=== PATIENT | female | born 1950 | race Caucasian/White ===

== ENCOUNTER 2020-08-29 07:20 | Emergency (ER) | payer MEDICARE, MEDICAID, SELFPAY ==
[2020-08-29 07:27] VITALS: BP 142/79; PULSE 80; RESP 16; TEMP 36.6; O2SAT 98; BMI 39.0
--- NOTE | 2020-08-29 08:34 | XR_ITS ---
EXAMINATION: XR CHEST CLINICAL INFORMATION: SOB. COMPARISON: Chest 08/07/2012 TECHNIQUE: Frontal view of the chest was obtained. FINDINGS: The lungs are well-expanded and clear of acute process. The heart size and pulmonary vascularity is normal. No gross bony abnormality seen. XR/XR chest 1V IMPRESSION: Unremarkable chest exam.
--- NOTE | 2020-08-29 08:34 | ECG_ITS ---
Test Reason : DYSPNEA Blood Pressure : / mmHG Vent. Rate : 081 BPM Atrial Rate : 081 BPM P-R Int : 152 ms QRS Dur : 080 ms QT Int : 418 ms P-R-T Axes : 059 -27 016 degrees QTc Int : 485 ms Sinus rhythm with occasional Premature ventricular complexes Nonspecific ST abnormality Abnormal ECG When compared with ECG of 28-OCT-2017 00:40, Premature ventricular complexes are now Present Nonspecific T wave abnormality no longer evident in Inferior leads T wave inversion no longer evident in Anterolateral leads Referred By: Jacquelin Ly Electronically Signed By:CAROLYN DIA MD
--- NOTE | 2020-08-29 09:11 | ED_ITS ---
HPI - SOB/Dyspnea General Chief Complaint: Dyspnea Stated Complaint: sob +covid Time Seen by Provider: 08/29/20 08:17 Source: patient Mode of arrival: ambulatory History of Present Illness HPI Narrative: 70-year-old female with past medical history of hypertension presenting to the ED complaining of worsening SOB and right-sided lung pain x a few days. Also reports dry cough and diarrhea. Admits tested positive for COVID-19 on 08/15. 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 Denies fever, chills, productive cough, chest pain, recent travel, LE edema MD elicited complaint: shortness of breath Related Data Previous Rx's Medication Instructions Recorded azithromycin See Rx Instructions .ROUTE 08/29/20 .COMPLEX #6 tab prednisone 40 mg PO DAILY 5 Days #10 tab 08/29/20 Allergies Allergy/AdvReac Type Severity Reaction Status Date / Time No Known Allergies Allergy Unverified 05/21/20 15:09 Review of Systems Review of Systems: Constitutional: No Weight loss, No Fever, No Chills, No Night Sweats, + Fatigue, + Malaise ENT/Mouth: No Ear Pain, No Nasal Congestion, No sore throat, No Rhinorrhea Cardiovascular: No Chest Pain, + SOB, No Dyspnea on Exertion, No Orthopnea, No Edema Respiratory: No Cough, No Sputum, No Wheezing, No Smoke Exposure, No Dyspnea Gastrointestinal: No Nausea, No Vomiting, + Diarrhea Musculoskeletal: No joint pain, No Myalgias, No Joint Swelling Skin: No Skin Lesions, No rash Yes all other systems are reviewed and are negative PMFSH Past Medical History Attestation statement: The following information was validated with the patient. Medical History (Updated 08/29/20 @ 16:07 by RACHEAL Hollins) HTN (hypertension) Social History Social History Alcohol intake: current Alcohol intake frequency: 0-2 drinks per day Alcohol type: wine Smoked in Last 30 Days: No Use of substances other than those prescribed or required for medical reasons: No Advance Directives: No Advance Directives Information Provided: No Physical Exam Vital Signs: Vital Signs: Last Vital Signs Temp 98.8 F 08/29/20 14:36 Pulse 81 08/29/20 14:36 Resp 30 H 08/29/20 14:36 BP 153/75 H 08/29/20 14:36 Pulse Ox 94 08/29/20 14:36 Body Mass Index 39.0 Const: General: cooperative and healthy appearing Orientation/consciousness: patient oriented x3 Limitations: no limitations HENMT: Head: Yes normal to inspection Ears: hearing grossly normal bilaterally General nose exam: Normal external nose present Face and sinus: Yes normal facial exam Eyes: General: appearance normal, both eyes and all related structures EOM: EOMs intact bilaterally Neck: Neck: Yes normal visual inspection Chest: Chest palpation & inspection: normal inspection of the chest Resp: Effort & Inspection: normal respiratory effort, no stridor and not tachypneic Auscultation: no wheezes and diminished lung sounds on the right in the lower lung [place] Cardio: Rate: regular rate Heart sounds: S1 normal heart sound present and S2 normal heart sound present GI: Inspection: Yes normal to inspection Palpation (GI): Soft to palpation, nontender, no guarding and not rigid Skin: Rashes: no rashes Wounds: no wounds Neuro: General: patient oriented x3 Gait exam (Neuro): Normal gait present Extrem: Other: No LE edema or calf tenderness General: Yes normal to inspection Course Course Course Narrative: * Magnesium low 1.1 > 2 g IV repletion ordered, AST/ALT mildly elevated, troponin 11.6 > will obtain 3 hour repeat * Repeat troponin equivocal * CXR unremarkable, on re-evaluation patient reports continued right sided rib pain. D-dimer added * [id number] elevated at 630 > will obtain CTA to r/o PE * 1606-of PE. Subpleural nodule right lower base, stable. Small area fine reticular opacity subpleural lung right upper lobe which may be acute or chronic > will discharge patient home with Azithromycin, prednisone, and inhaler * Patient ambulated in the ED with pulse ox maintaining saturations at 94 -95% on RA MDM - SOB/Dyspnea MDM Narrative Medical decision making narrative: 70-year-old female with past medical history of hypertension presenting to the ED complaining of worsening SOB and right- sided lung pain x a few days. On exam VSS, NAD/well-appearing, lungs with decreased breath sounds in right lower lung. Patient is nontoxic appearing. Concern for COVID-19 pneumonia vs COVID-19 symptoms fair lower concern for PE. Low concern for bacterial infection. Plan: EKG, labs, CXR, albuterol, reassess Lab Data Result diagrams: 08/29/20 09:34 08/29/20 09:34 Labs: Lab Results 08/29/20 08/29/20 08/29/20 Range/Units 09:34 09:34 09:34 WBC 7.0 (4.8-10.8) X10*3/uL RBC 4.88 (4.20-5.50) X10*6/uL Hgb 13.7 (12.0-16.0) g/dl Hct 40.8 (37-47) % MCV 83.6 (80-98) fL MCH 28.1 (27.0-33.0) pg MCHC 33.6 (31.0-35.0) g/dl RDW 13.0 (11.0-16.0) % Plt Count 247 (160-400) X10*3/uL MPV 9.1 L (9.4-12.3) fL Immature Gran % (Auto) 1.9 H (0.0-0.4) % Neut % (Auto) 38.1 L (45-73) % Lymph % (Auto) 53.8 H (20-40) % Island % (Auto) 5.3 (2-11) % Eos % (Auto) 0.3 (0-4) % Baso % (Auto) 0.6 (0-2) % Lymph # (Auto) 3.8 (1.2-4.9) X10*3/uL Island # (Auto) 0.4 (0.1-1.2) X10*3/uL Eos # (Auto) 0.0 (0.0-0.4) X10*3/uL Baso # (Auto) 0.0 (0.0-0.2) X10*3/uL Abs Immat Gran (auto) 0.13 H (0.00-0.03) X10*3/uL Absolute Neuts (auto) 2.7 (2.0-8.3) X10*3/uL Absolute Nucleated RBC 0.000 (0.0-0.012) X10*3/uL Nucleated RBC % (auto) 0.0 (0.0-0.2) /100WBC D-Dimer 630 NG/ML Hold Blue Top SEE NOTE Sodium 145 (135-145) mmol/L Potassium 3.4 (3.3-5.1) mmol/l Chloride 103 (96-108) mmol/L Carbon Dioxide 28 (22-29) mmol/L Anion Gap 17 (12-20) BUN 11 (9-16) mg/dL Creatinine 0.73 (0.5-1.4) mg/dL Estim Creat Clear Calc 74.0 Estimated GFR > 60 Random Glucose 139 H (60-115) mg/dL Calcium 8.4 (8.4-10.2) mg/dL Magnesium 1.1 L* (1.6-2.6) mg/dL Ferritin 73 (10-250) ng/mL Total Bilirubin 0.3 (0.0-1.0) mg/dL Direct Bilirubin 0.2 (0.0-0.5) mg/dL AST 85 H (5-31) U/L ALT 79 H (0-31) U/L Alkaline Phosphatase 89 (39-117) U/L Lactate Dehydrogenase 324 H (122-220) U/L Troponin I High Sens (<3.5-17.0) ng/L C-Reactive Protein 0.31 (< or = 0.50) mg/dL B-Natriuretic Peptide (<100) pg/mL Total Protein 7.3 (6.5-8.0) g/dL Albumin 3.9 (3.5-5.0) g/dL Procalcitonin ng/mL 08/29/20 08/29/20 08/29/20 Range/Units 09:34 09:34 11:41 WBC (4.8-10.8) X10*3/uL RBC (4.20-5.50) X10*6/uL Hgb (12.0-16.0) g/dl Hct (37-47) % MCV (80-98) fL MCH (27.0-33.0) pg MCHC (31.0-35.0) g/dl RDW (11.0-16.0) % Plt Count (160-400) X10*3/uL MPV (9.4-12.3) fL Immature Gran % (Auto) (0.0-0.4) % Neut % (Auto) (45-73) % Lymph % (Auto) (20-40) % Island % (Auto) (2-11) % Eos % (Auto) (0-4) % Baso % (Auto) (0-2) % Lymph # (Auto) (1.2-4.9) X10*3/uL Island # (Auto) (0.1-1.2) X10*3/uL Eos # (Auto) (0.0-0.4) X10*3/uL Baso # (Auto) (0.0-0.2) X10*3/uL Abs Immat Gran (auto) (0.00-0.03) X10*3/uL Absolute Neuts (auto) (2.0-8.3) X10*3/uL Absolute Nucleated RBC (0.0-0.012) X10*3/uL Nucleated RBC % (auto) (0.0-0.2) /100WBC D-Dimer NG/ML Hold Blue Top Sodium (135-145) mmol/L Potassium (3.3-5.1) mmol/l Chloride (96-108) mmol/L Carbon Dioxide (22-29) mmol/L Anion Gap (12-20) BUN (9-16) mg/dL Creatinine (0.5-1.4) mg/dL Estim Creat Clear Calc Estimated GFR Random Glucose (60-115) mg/dL Calcium (8.4-10.2) mg/dL Magnesium (1.6-2.6) mg/dL Ferritin (10-250) ng/mL Total Bilirubin (0.0-1.0) mg/dL Direct Bilirubin (0.0-0.5) mg/dL AST (5-31) U/L ALT (0-31) U/L Alkaline Phosphatase (39-117) U/L Lactate Dehydrogenase (122-220) U/L Troponin I High Sens 11.6 11.5 (<3.5-17.0) ng/L C-Reactive Protein (< or = 0.50) mg/dL B-Natriuretic Peptide 56 (<100) pg/mL Total Protein (6.5-8.0) g/dL Albumin (3.5-5.0) g/dL Procalcitonin 0.04 ng/mL Discharge Plan Discharge Clinical Impression: COVID-19 Patient Disposition: Home, Self-Care Additional Instructions: YOUR BLOOD WORK SHOWED A LOW MAGNESIUM, START TAKING MAGNESIUM [id number] YOU HAVE COVID-19, YOU ALSO MAY HAVE COVID-19 PNEUMONIA, ZITHROMAX IS AN ANTIBIOTIC, TAKE PRESCRIBED PREDNISONE IS A STEROID, WHICH WILL HELP WITH YOUR BREATHING, IN ADDITION TAKE DIRECTED USE INHALER THAT WAS SUPPLIED TO YOU IN THE EMERGENCY DEPARTMENT CONTINUE TO SELF ISOLATE IF HE DEVELOP CONSTANT WORSENING SHORTNESS OF BREATH, CHEST PAIN, OR FEVERS UNRESOLVED BY MEDICATIONS/TYLENOL OR MOTRIN AT HOME RETURN TO THE ED FEELING CALL YOUR PRIMARY CARE DOCTOR FOR FOLLOW-UP CDC Guidelines for home isolation: - Stay away from others - WEAR A MASK if you are sick AND STAY HOME - Cover your mouth and nose with a tissue when you cough or sneeze. Dispose of tissues in a lined trash can and wash your hands immediately with soap and water for at least 20 seconds. If soap and water are not available, clean hands with alcohol-based hand osteopathic resident that contains at least 60% alcohol. - Clean your hands often with soap and water for at least 20 seconds - Avoid touching your eyes, nose and mouth with unwashed hands - Do not share dishes, drinking glasses, cups, eating utensils, towels, or bedding with other people in your home. After using these items, wash them thoroughly with soap and water or put in the project landscape architect. - Clean high-touch surfaces in your isolation area ( sick room and bathroom) every day; let a caregiver clean and disinfect high-touch surfaces in other areas of the home. Clean the area or item with soap and water or another detergent if it is dirty. Then, use a household disinfectant. - Limit contact with pets and animals: If you must care for a pet, wash your hands before and after interacting with them) Prescriptions: New azithromycin 250 mg tablet See Rx Instructions .ROUTE .COMPLEX Qty: 6 RF: 0 prednisone 20 mg tablet 40 mg PO DAILY 5 Days Qty: 10 RF: 0 Referrals: ED Physician,Generic [Emergency Provider] - 2 days
[2020-08-29] MEDS: Albuterol Sulfate 90 MCG 8 GM INHALER 4 PUFF INHALE (09:12)
[2020-08-29 09:39] LABS: Basophils Percent Auto 0.6 % (0-2); Eosinophils Percent Auto 0.3 % (0-4); Hematocrit 40.8 % (37-47); Hemoglobin 13.7 g/dl (12.0-16.0); Imm Gran Abs Auto 0.13 X10*3/uL (0.00-0.03); Imm Gran Pct Auto 1.9 % (0.0-0.4); Lymphocytes Absolute Auto 3.8 X10*3/uL (1.2-4.9); Lymphocytes Percent Auto 53.8 % (20-40); MANUAL DIFF FLAG NO; Mean Corpuscular HGB Conc 33.6 g/dl (31.0-35.0); Mean Corpuscular Hemoglobin 28.1 pg (27.0-33.0); Mean Corpuscular Volume 83.6 fL (80-98); Mean Platelet Volume 9.1 fL (9.4-12.3); Monocytes Absolute Auto 0.4 X10*3/uL (0.1-1.2); Monocytes Percent Auto 5.3 % (2-11); Neutrophils Absolute Auto 2.7 X10*3/uL (2.0-8.3); Neutrophils Percent Auto 38.1 % (45-73); Platelet Count 247 X10*3/uL (160-400); Red Blood Count 4.88 X10*6/uL (4.20-5.50)
[2020-08-29 10:18] LABS: B Type Natriuretic Peptide 56 pg/mL (<100); Troponin-I High Sensitivity 11.6 ng/L (<3.5-17.0)
[2020-08-29 10:21] LABS: Alanine Aminotransferase 79 U/L (0-31); Albumin Level 3.9 g/dL (3.5-5.0); Alkaline Phosphatase 89 U/L (39-117); Anion Gap 17 (12-20); Aspartate Amino Transferase 85 U/L (5-31); Bilirubin Direct 0.2 mg/dL (0.0-0.5); Bilirubin Total 0.3 mg/dL (0.0-1.0); Blood Urea Nitrogen 11 mg/dL (9-16); C Reactive Protein 0.31 mg/dL (< or = 0.50); Calcium 8.4 mg/dL (8.4-10.2); Carbon Dioxide 28 mmol/L (22-29); Chloride 103 mmol/L (96-108); Estimated Glomerular Filt Rate > 60; Glucose Random 139 mg/dL (60-115); Lactate Dehydrogenase 324 U/L (122-220); Magnesium 1.1 mg/dL (1.6-2.6); Potassium 3.4 mmol/l (3.3-5.1); Sodium 145 mmol/L (135-145); Total Protein 7.3 g/dL (6.5-8.0)
[2020-08-29 10:27] LABS: Procalcitonin 0.04 ng/mL
[2020-08-29 10:32] LABS: Ferritin 73 ng/mL (10-250)
[2020-08-29] MEDS: Magnesium Sulfate/H2O 2 GM/50 ML PIGGYBACK IV (10:56)
[2020-08-29 11:43] VITALS: BP 134/71; PULSE 81; RESP 26; TEMP 37.1; O2SAT 94
[2020-08-29 12:21] LABS: Troponin-I High Sensitivity 11.5 ng/L (<3.5-17.0)
[2020-08-29] MEDS: Acetaminophen 325 MG TABLET 650 MG PO (12:33)
[2020-08-29] MEDS: LORazepam 1 MG TABLET PO (12:33)
[2020-08-29 12:41] VITALS: O2SAT 95
[2020-08-29 13:18] LABS: D Dimer 630 NG/ML
--- NOTE | 2020-08-29 14:20 | CT_ITS ---
EXAMINATION: CT ANGIOGRAM OF THE CHEST WITH AND WITHOUT CONTRAST (CT PULMONARY ANGIOGRAM FOR PE) CLINICAL INFORMATION: Reason for Exam COVID positive, elevated D-dimer COMPARISON: CT abdomen pelvis 03/12/2014. Chest x-ray 08/29/2020 TECHNIQUE: Prior to contrast administration, noncontrast localization images were obtained. Subsequently, multidetector volumetric imaging was performed from the thoracic inlet to below the diaphragms following the administration of 80 mL Omnipaque 350 intravenous contrast. No contrast reaction reported Sagittal, coronal, and MIP oblique sagittal reformatted images were obtained on the CT workstation, uploaded to PACS, and reviewed. This CT examination was performed using dose optimization techniques as appropriate, variously including the following: *Automated exposure control *Adjustment of mA and/or kV according to patient size (this includes techniques or standardized protocols for targeted exams where dose is matched to indication/reason for exam; i.e. extremities or head) *Use of iterative reconstruction technique Total exam dose-length product 602 mGy-cm FINDINGS: QUALITY OF STUDY/CONTRAST BOLUS: Satisfactory. PULMONARY ARTERIES: No central or segmental pulmonary emboli. THORACIC AORTA: No aneurysm or dissection. LUNG: Adjacent to the major fissure in the right upper lobe posteriorly there is an area of swelling reticular opacities in the subpleural lung of the right upper lobe which may be acute or chronic. Axial image 158 series 8. There is no focal dense consolidation. No groundglass opacities. Central bronchial airways are open. There is no bronchiectasis. Lung nodule: Subpleural lung posterior lateral right lower lobe 5 mm smooth bordered nodule axial image 250 series 8. This lung nodules unchanged since CAT scan of the abdomen pelvis 03/12/2014 consistent with a benign nodule. No further imaging would be needed. PLEURA: No pleural effusion or pneumothorax. MEDIASTINUM: Normal heart size. No pericardial effusion. No hilar or mediastinal lymphadenopathy. No evidence of septal bowing or right heart strain. CHEST WALL/AXILLA: No axillary or internal mammary lymphadenopathy. OSSEOUS STRUCTURES: No acute or suspicious osseous abnormality. There is multilevel degenerative spondylosis of the dorsal spine. UPPER ABDOMEN: Unremarkable. No reflux of contrast into the hepatic veins to suggest elevated right heart pressures. CT/CT angio chest PE protocol IMPRESSION: 1. No evidence of pulmonary embolism. 2. 5 mm subpleural nodule right lower lobe. This nodule is stable since CAT scan of 2013 consistent therefore with a benign nodule. No further imaging would be suggested. 3. Small area of fine reticular opacity subpleural lung right upper lobe which may be acute or chronic. VTE: negative
[2020-08-29 14:36] VITALS: BP 153/75; PULSE 81; RESP 30; TEMP 37.1; O2SAT 94
[2020-08-29] MEDS: iohexoL 350 MG/ML 100 ML INFUS..BTL 65 ML IV (15:26)
== END 2020-08-29 16:41 | disposition home or self-care (01) ==
PROVIDERS: Physician Assistant; Emergency Provider Emergency Medicine Emergency Medical Services
DX: U07.1 COVID-19 (principal); E83.42 Hypomagnesemia; I10 Essential (primary) hypertension
CPT/HCPCS: 36415; 71045; 71275; 80048; 80076; 82728; 83615; 83735; 83880; 84145; 84484; 85025; 85379; 86140; 93005; 96365; 96366; 99284; J3475; Q9967

== ENCOUNTER → 2021-07-20 15:21 | Outpatient (BNVA) | payer OTHER, SELFPAY | PROVIDERS: Visit Provider Internal Medicine | DX: S93.401A Sprain of unspecified ligament of right ankle, initial encounter (principal); X50.1XXA Overexertion from prolonged static or awkward postures, initial encounter | CPT/HCPCS: 73610; 99203 ==

== ENCOUNTER → 2021-07-23 13:09 | Outpatient (BNVA) | payer OTHER, SELFPAY | PROVIDERS: Visit Provider Internal Medicine | DX: S93.401A Sprain of unspecified ligament of right ankle, initial encounter (principal); X58.XXXA Exposure to other specified factors, initial encounter | CPT/HCPCS: 99214 ==

== ENCOUNTER → 2021-08-06 09:17 | Outpatient (BNVA) | payer OTHER, SELFPAY | PROVIDERS: PCP Family Medicine; Visit Provider Internal Medicine | DX: S93.401D Sprain of unspecified ligament of right ankle, subsequent encounter (principal); X58.XXXD Exposure to other specified factors, subsequent encounter | CPT/HCPCS: 99213 ==

== ENCOUNTER 2021-08-12 18:13 | Outpatient (REF) | payer OTHER, SELFPAY ==
--- NOTE | ~2021-08-12 | MR_ITS ---
EXAMINATION: MR ANKLE WITHOUT CONTRAST, RIGHT CLINICAL INFORMATION: Right ankle pain following injury. Anterior, medial, and lateral pain. COMPARISON: Right ankle radiographs dated 07/20/2021. TECHNIQUE: Multisequence MR imaging of the right ankle was obtained without contrast on a high-field strength scanner. FINDINGS: BONE AND ARTICULAR CARTILAGE: No stress reaction or fracture. Focal articular cartilage fissuring with mild underlying subchondral cystic change and adjacent marginal osteophytes at both the anterior and posterior aspects of the tibial plafond. Overall mild tibiotalar osteoarthritis. No talar osteochondral lesion. Articular cartilage fissuring with underlying subchondral cystic change at the dorsal aspect of the 4th tarsometatarsal joint. ACHILLES TENDON: Normal. OTHER TENDONS: Flattening and abnormal signal of the peroneal brevis tendon at the level of the lateral malleolus. Associated thickening and abnormal signal of the peroneal longus tendon at this level. No full-thickness transverse tendon defect. LIGAMENTS: Thickening of the anterior talofibular ligament as well as heterogeneity of the deltoid ligament, consistent with remote sprain/partial tears. No acute ligament injury. JOINT FLUID AND SOFT TISSUES: Small tibiotalar joint effusion. PLANTAR FASCIA: Plantar calcaneal spur without a measurable plantar fascia defect. SINUS TARSI AND TARSAL TUNNEL: Normal. MR/MR ankle RT wo con IMPRESSION: 1. Longitudinal partial tearing/flattening of the peroneal brevis tendon at the level of the lateral malleolus. Associated peroneal longus tenosynovitis at this level. No transverse tendon defect or tendon retraction. 2. Remote sprain/partial tears of the anterior talofibular and deltoid ligaments. No evidence of acute ligament injury. 3. 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 Small tibiotalar joint effusion.
== END 2021-08-12 18:14 | disposition home or self-care (01) ==
LOC: HO.MRI 18:13
PROVIDERS: Visit Provider Internal Medicine
DX: M25.571 Pain in right ankle and joints of right foot (principal); Z91.81 History of falling
CPT/HCPCS: 73721

== ENCOUNTER → 2021-08-13 11:13 | Outpatient (BNVA) | payer OTHER, SELFPAY | PROVIDERS: PCP Family Medicine; Visit Provider Internal Medicine | DX: S93.401D Sprain of unspecified ligament of right ankle, subsequent encounter (principal); X58.XXXD Exposure to other specified factors, subsequent encounter | CPT/HCPCS: 99213 ==

== ENCOUNTER → 2021-08-20 10:51 | Outpatient (BNVA) | payer OTHER, SELFPAY | PROVIDERS: PCP Family Medicine; Visit Provider Internal Medicine | DX: S96.911D Strain of unspecified muscle and tendon at ankle and foot level, right foot, subsequent encounter (principal); X58.XXXD Exposure to other specified factors, subsequent encounter | CPT/HCPCS: 99213 ==

== ENCOUNTER 2021-09-24 10:00 | Outpatient (RCR) | payer OTHER, MEDICARE, SELFPAY ==
--- NOTE | 2021-09-24 14:08 | MHC.PT.DC ---
[facility] [place] Office [place] Office [place] Office [address] [place] Flowers [address] [phone] F: [phone] F: [phone] F: [phone] F: [phone] Physical Therapy Discharge Report Diagnosis: R ankle sprain Date of Surgery: Date of Evaluation: 08/04/21 Date of Discharge: 09/24/21 Treatments to Date: 7 Cancellations to Date: 2 No Shows to Date: 2 Discharge Status: Achieved Goals Improved Function Independent with HEP Patient Elected to Stop Discharge Summary: Mimi has been an active participant in her therapy in the clinic with poor home program compliance and has met some of her therapeutic goals at this time. She had followed up with her MD after MRI and although persists with some pain and burning sensation at times she is encouraged her symptoms will improve in time and will continue light exercises on her own which was reviewed today with ed to monitor her symptoms and not to push through painful activities. Electronically signed by: Alan Robertson PT. Please sign and return to therapist. Thank you for your referral.
== END 2021-09-24 14:08 | disposition home or self-care (01) ==
LOC: HO.PTCHIC 10:00
PROVIDERS: PCP Family Medicine; Visit Provider Internal Medicine
DX: S93.401D Sprain of unspecified ligament of right ankle, subsequent encounter (principal)
CPT/HCPCS: 97110; 97112; 97140; 97161

== ENCOUNTER 2021-10-25 12:08 | Emergency (ER) | payer MEDICARE, SELFPAY ==
--- NOTE | ~2021-10-25 | CT_ITS ---
EXAMINATION: CT ANGIOGRAM OF THE CHEST WITH AND WITHOUT CONTRAST (CT PULMONARY ANGIOGRAM FOR PE) CLINICAL INFORMATION: Reason for Exam sob ?pe COMPARISON: CT angiogram chest 08/29/2020 TECHNIQUE: Prior to contrast administration, noncontrast localization images were obtained. Subsequently, multidetector volumetric imaging was performed from the thoracic inlet to below the diaphragms following the administration of 71 mL Omnipaque 350 intravenous contrast. No contrast reaction reported Sagittal, coronal, and MIP oblique sagittal reformatted images were obtained on the CT workstation, uploaded to PACS, and reviewed. This CT examination was performed using dose optimization techniques as appropriate, variously including the following: *Automated exposure control *Adjustment of mA and/or kV according to patient size (this includes techniques or standardized protocols for targeted exams where dose is matched to indication/reason for exam; i.e. extremities or head) *Use of iterative reconstruction technique Total exam dose-length product 497 mGy-cm FINDINGS: QUALITY OF STUDY/CONTRAST BOLUS: Satisfactory. PULMONARY ARTERIES: No central or segmental pulmonary emboli. THORACIC AORTA: No aneurysm or dissection. LUNG: No focal consolidation, worrisome nodules or masses. Stable 5 mm subpleural right lower lobe nodule since at least 2013 is not as well seen on the current study. PLEURA: No pleural effusion or pneumothorax. MEDIASTINUM: Normal heart size. No pericardial effusion. No hilar or mediastinal lymphadenopathy. No evidence of septal bowing or right heart strain. CHEST WALL/AXILLA: No axillary or internal mammary lymphadenopathy. OSSEOUS STRUCTURES: No acute or suspicious osseous abnormality. There are mild degenerative changes in the spine. UPPER ABDOMEN: Unremarkable. Minimal reflux of contrast into the hepatic veins questioning the possibility of elevated right heart pressures. CT/CT angio chest PE protocol IMPRESSION: No pulmonary emboli detected. VTE: negative
--- NOTE | ~2021-10-25 | XR_ITS ---
EXAMINATION: XR CHEST CLINICAL INFORMATION: Dyspnea COMPARISON: None TECHNIQUE: Frontal view of the chest was obtained. FINDINGS: No significant abnormality is noted involving the heart, lungs, mediastinum, bony thorax or soft tissues. XR/XR chest 1V IMPRESSION: Unremarkable chest examination.
[2021-10-25 12:11] VITALS: BP 143/73; PULSE 73; RESP 18; TEMP 36.9; O2SAT 99; BMI 40.1
--- NOTE | 2021-10-25 12:18 | ECG_ITS ---
Test Reason : DYSPNEA Blood Pressure : / mmHG Vent. Rate : 057 BPM Atrial Rate : 057 BPM P-R Int : 164 ms QRS Dur : 076 ms QT Int : 468 ms P-R-T Axes : 051 -13 073 degrees QTc Int : 455 ms Sinus bradycardia Otherwise normal ECG When compared with ECG of 29-AUG-2020 09:39, Premature ventricular complexes are no longer Present T wave inversion now evident in Lateral leads Referred By: Generic ED Physician Electronically Signed By:SHYANN LEWIS
[2021-10-25 12:33] LABS: MANUAL DIFF FLAG NO
[2021-10-25 12:37] LABS: Basophils Absolute Auto 0.1 X10*3/uL (0.0-0.2); Basophils Percent Auto 0.8 % (0-2); Eosinophils Absolute Auto 0.2 X10*3/uL (0.0-0.4); Eosinophils Percent Auto 2.1 % (0-4); Hemoglobin 13.4 g/dl (12.0-16.0); Imm Gran Abs Auto 0.04 X10*3/uL (0.00-0.03); Imm Gran Pct Auto 0.5 % (0.0-0.4); Lymphocytes Absolute Auto 1.9 X10*3/uL (1.2-4.9); Lymphocytes Percent Auto 25.1 % (20-40); Mean Corpuscular HGB Conc 33.5 g/dl (31.0-35.0); Mean Corpuscular Hemoglobin 28.8 pg (27.0-33.0); Mean Corpuscular Volume 85.8 fL (80.0-98.0); Monocytes Absolute Auto 0.5 X10*3/uL (0.1-1.2); Monocytes Percent Auto 7.2 % (2-11); Neutrophils Absolute Auto 4.8 x10*3/uL (2.0-8.3); Neutrophils Percent Auto 64.3 % (45-73); Platelet Count 221 X10*3/uL (160-400); Red Blood Count 4.66 X10*6/uL (4.20-5.50); Red Cell Distribution Width 13.2 % (11.0-16.0); White Blood Count 7.5 X10*3/uL (4.8-10.8)
[2021-10-25 12:47] LABS: Appearance Urine CLEAR; Color Urine YELLOW; Glucose Urine UA NEG (NEG); Leukocyte Esterase Urine NEG (NEG); Nitrite Urine NEG (NEG); Specific Gravity - Urine 1.025 (1.005-1.025); Urine Blood NEG (NEG); Urine Ketones NEG (NEG); Urine Protein NEG (NEG-TRACE)
[2021-10-25 12:57] LABS: COVID-19 Test Negative (Negative)
[2021-10-25 12:58] LABS: Anion Gap 13 (12-20); Blood Urea Nitrogen 14 mg/dL (9-16); Calcium 9.7 mg/dL (8.4-10.2); Carbon Dioxide 24 mmol/L (22-29); Chloride 107 mmol/L (96-108); Creatinine Clr Calc Pharmacy 62.2; Estimated Glomerular Filt Rate > 60; Glucose Random 134 mg/dL (60-115); Potassium 3.9 mmol/L (3.3-5.1); Sodium 140 mmol/L (135-145)
[2021-10-25 13:02] LABS: B Type Natriuretic Peptide 232 pg/mL (<100); Troponin-I High Sensitivity 5.9 ng/L (<3.5-17.0)
--- NOTE | 2021-10-25 19:43 | ED.SOB ---
HPI - SOB/Dyspnea General Chief Complaint: Dyspnea Stated Complaint: diff breathing Time Seen by Provider: 10/25/21 19:43 Source: patient Mode of arrival: ambulatory Limitations: no limitations History of Present Illness HPI Narrative: Patient history of hypertension on amlodipine and chlorthalidone, and depression comes here for increased shortness of breath for last 1.5 week on exertion also noticed increased swelling of the legs no calf pain patient gained about 10 lb in last few months. Patient feel tight in the lungs. A month ago patient had ankle sprain and has not been walking that much. Patient denies any chest pain or palpitation no melena or abdominal pain no history of sleep apnea or any lung issues occasional dry cough Related Data Previous Rx's Medication Instructions Recorded azithromycin 250 mg tablet See Rx Instructions .ROUTE 08/29/20 .COMPLEX #6 tab prednisone 20 mg tablet 40 mg PO DAILY 5 Days #10 tab 08/29/20 furosemide 20 mg tablet (Lasix) 20 mg PO QAM #30 tab 10/25/21 potassium chloride 10 mEq 10 meq PO DAILY #30 cap 10/25/21 capsule,extended release Allergies Allergy/AdvReac Type Severity Reaction Status Date / Time No Known Allergies Allergy Verified 10/25/21 12:11 Review of Systems Review of Systems: Yes all other systems are reviewed and are negative [facility] Past Medical History Medical History Depression HTN (hypertension) Social History Social History Alcohol intake: current Alcohol intake frequency: 0-2 drinks per day Alcohol type: wine Advance Directives: No Advance Directives Information Provided: Yes Physical Exam Vital Signs: Vital Signs: Last Vital Signs Temp 98.5 F 10/25/21 19:53 Pulse 56 10/25/21 19:53 Resp 20 10/25/21 19:53 BP 148/73 H 10/25/21 19:53 Pulse Ox 100 10/25/21 19:53 BMI result Body Mass Index 40.1 Appearance: Alert. Oriented X3. No acute distress. Eyes: No pallor icterus ENT: Pharynx normal. Oral Mucosa moist Neck: Normal inspection. Neck supple. CVS: Normal heart rate and rhythm. Pulses normal. Respiratory: No respiratory distress. Equal air entry bilateral, no wheezing/rales/rhonchi Abdomen: Soft and nontender. Bowel sounds are present, no mass palpable, no CVA tenderness Skin: Skin warm and dry. Normal skin color. Normal skin turgor. Extremities:1+ lower extremity edema. No calf tenderness Neuro: Oriented X 3. No motor deficit. MDM - SOB/Dyspnea MDM Narrative Medical decision making narrative: Patient with exertional dyspnea CTA chest negative for PE slightly elevated BNP no acute ischemic changes patient advised to take frusemide daily and follow with crematory attendant for further workup Lab Data Attestation: I reviewed the patient's lab results. Result diagrams: 10/25/21 12:28 10/25/21 12:28 Labs: Lab Results 10/25/21 10/25/21 10/25/21 Range/Units 12:23 12:24 12:28 WBC 7.5 (4.8-10.8) X10*3/uL RBC 4.66 (4.20-5.50) X10*6/uL Hgb 13.4 (12.0-16.0) g/dl Hct 40.0 (37.0-47.0) % MCV 85.8 (80.0-98.0) fL MCH 28.8 (27.0-33.0) pg MCHC 33.5 (31.0-35.0) g/dl RDW 13.2 (11.0-16.0) % Plt Count 221 (160-400) X10*3/uL MPV 10.0 (9.4-12.3) fL Immature Gran % (Auto) 0.5 H (0.0-0.4) % Neut % (Auto) 64.3 (45-73) % Lymph % (Auto) 25.1 (20-40) % [place] % (Auto) 7.2 (2-11) % Eos % (Auto) 2.1 (0-4) % Baso % (Auto) 0.8 (0-2) % Lymph # (Auto) 1.9 (1.2-4.9) X10*3/uL [place] # (Auto) 0.5 (0.1-1.2) X10*3/uL Eos # (Auto) 0.2 (0.0-0.4) X10*3/uL Baso # (Auto) 0.1 (0.0-0.2) X10*3/uL Abs Immat Gran (auto) 0.04 H (0.00-0.03) X10*3/uL Absolute Neuts (auto) 4.8 (2.0-8.3) x10*3/uL Absolute Nucleated RBC 0.000 (0.0-0.012) X10*3/uL Nucleated RBC % (auto) 0.0 (0.0-0.2) /100WBC PT (9.9-13.0) SEC INR (0.9-1.1) APTT (24.1-38.0) SEC D-Dimer High Sensitivty NG/ML Sodium (135-145) mmol/L Potassium (3.3-5.1) mmol/L Chloride (96-108) mmol/L Carbon Dioxide (22-29) mmol/L Anion Gap (12-20) BUN (9-16) mg/dL Creatinine (0.5-1.4) mg/dL Estim Creat Clear Calc Estimated GFR Random Glucose (60-115) mg/dL Calcium (8.4-10.2) mg/dL Troponin I High Sens (<3.5-17.0) ng/L B-Natriuretic Peptide (<100) pg/mL Urine Color YELLOW Urine Appearance CLEAR Urine pH 6.0 (5.0-8.0) Ur Specific [place] 1.025 (1.005-1.025) Urine Protein NEG (NEG-TRACE) MG/DL Urine Glucose (UA) NEG (NEG) MG/DL Urine Ketones NEG (NEG) MG/DL Urine Blood NEG (NEG) Urine Nitrite NEG (NEG) Ur Leukocyte Esterase NEG (NEG) COVID-19 (UZAIR) Negative (Negative) COVID-19 Clin Com See Note 10/25/21 10/25/21 10/25/21 Range/Units 12:28 12:28 20:09 WBC (4.8-10.8) X10*3/uL RBC (4.20-5.50) X10*6/uL Hgb (12.0-16.0) g/dl Hct (37.0-47.0) % MCV (80.0-98.0) fL MCH (27.0-33.0) pg MCHC (31.0-35.0) g/dl RDW (11.0-16.0) % Plt Count (160-400) X10*3/uL MPV (9.4-12.3) fL Immature Gran % (Auto) (0.0-0.4) % Neut % (Auto) (45-73) % Lymph % (Auto) (20-40) % [place] % (Auto) (2-11) % Eos % (Auto) (0-4) % Baso % (Auto) (0-2) % Lymph # (Auto) (1.2-4.9) X10*3/uL [place] # (Auto) (0.1-1.2) X10*3/uL Eos # (Auto) (0.0-0.4) X10*3/uL Baso # (Auto) (0.0-0.2) X10*3/uL Abs Immat Gran (auto) (0.00-0.03) X10*3/uL Absolute Neuts (auto) (2.0-8.3) x10*3/uL Absolute Nucleated RBC (0.0-0.012) X10*3/uL Nucleated RBC % (auto) (0.0-0.2) /100WBC PT 10.6 (9.9-13.0) SEC INR 0.9 (0.9-1.1) APTT 28.1 (24.1-38.0) SEC D-Dimer High Sensitivty 172 NG/ML Sodium 140 (135-145) mmol/L Potassium 3.9 (3.3-5.1) mmol/L Chloride 107 (96-108) mmol/L Carbon Dioxide 24 (22-29) mmol/L Anion Gap 13 (12-20) BUN 14 (9-16) mg/dL Creatinine 0.84 (0.5-1.4) mg/dL Estim Creat Clear Calc 62.2 Estimated GFR > 60 Random Glucose 134 H (60-115) mg/dL Calcium 9.7 D (8.4-10.2) mg/dL Troponin I High Sens 5.9 (<3.5-17.0) ng/L B-Natriuretic Peptide 232 H (<100) pg/mL Urine Color Urine Appearance Urine pH (5.0-8.0) Ur Specific [place] (1.005-1.025) Urine Protein (NEG-TRACE) MG/DL Urine Glucose (UA) (NEG) MG/DL Urine Ketones (NEG) MG/DL Urine Blood (NEG) Urine Nitrite (NEG) Ur Leukocyte Esterase (NEG) COVID-19 (UZAIR) (Negative) COVID-19 Clin Com ECG Data Attestation: I personally reviewed and interpreted this ECG as follows: Interpretation: Sinus bradycardia with heart rate 57 beats per minute normal intervals normal axis no acute ST T wave change impression sinus bradycardia Discharge Plan Discharge Clinical Impression: Congestive heart failure with LV diastolic dysfunction, NYHA class 1 Patient Disposition: Home, Self-Care Instructions: Heart Failure (ED) Additional Instructions: You have mild heart failure Add furosemide 20 mg daily to your medications Follow with crematory attendant and PCP for further workup Prescriptions: New furosemide [Lasix] 20 mg tablet 20 mg PO QAM Qty: 30 0RF potassium chloride 10 mEq capsule, extended release 10 meq PO DAILY Qty: 30 0RF No Action azithromycin 250 mg tablet See Rx Instructions .ROUTE .COMPLEX Qty: 6 0RF Rx Instructions: take 500 mg today (day 1), then 250 mg for 4 days (days 2-5) prednisone 20 mg tablet 40 mg PO DAILY 5 Days Qty: 10 0RF Referrals: Calos Maria MD [Physician] - 1 week Interventions: LWBS Worksheet Last Done: 10/25/21 19:34
[2021-10-25 19:53] VITALS: BP 148/73; PULSE 56; RESP 20; TEMP 36.9; O2SAT 100
[2021-10-25 20:21] LABS: INTERNATIONAL NORM RATIO 0.9 (0.9-1.1); Prothrombin Time 10.6 SEC (9.9-13.0)
[2021-10-25 20:23] LABS: D Dimer High Sensitivity 172 NG/ML
[2021-10-25 20:24] LABS: Partial Thromboplastin Time 28.1 SEC (24.1-38.0)
[2021-10-25] MEDS: iohexoL 350 MG/ML 100 ML INFUS..BTL IV (21:01)
[2021-10-25] MEDS: Furosemide 20 MG/2 ML VIAL IVPUSH (22:18)
== END 2021-10-25 22:34 | disposition home or self-care (01) ==
PROVIDERS: Emergency Provider Internal Medicine; PCP Family Medicine
DX: I50.30 Unspecified diastolic (congestive) heart failure (principal); I10 Essential (primary) hypertension; R06.00 Dyspnea, unspecified; Z20.822 Contact with and (suspected) exposure to COVID-19; Z79.899 Other long term (current) drug therapy
CPT/HCPCS: 36415; 71045; 71275; 80048; 81003; 83880; 84484; 85025; 85379; 85610; 85730; 87635; 93005; 96374; 99284; J1940; Q9967

== ENCOUNTER → 2021-12-09 08:58 | Outpatient (BNVA) | payer MEDICARE, SELFPAY | PROVIDERS: PCP Family Medicine; Visit Provider Internal Medicine | DX: I11.0 Hypertensive heart disease with heart failure (principal); I50.9 Heart failure, unspecified; R06.02 Shortness of breath; R07.89 Other chest pain | CPT/HCPCS: 99202 ==

== ENCOUNTER → 2022-01-05 09:20 | Outpatient (REF) | payer MEDICARE, SELFPAY ==
--- NOTE | ~2022-01-05 | NM_ITS ---
EXERCISE MYOCARDIAL PERFUSION STUDY INDICATION: Chest pain, assess for coronary disease and ischemia TECHNIQUE: The patient was brought in for an exercise perfusion study on 01/05/2022. Patient performed exercise as per Carl protocol and was injected 30 mCi of sestamibi once target heart rate was achieved. Images were obtained using the SPECT gamma camera interlaced with the gating device. Images were obtained in supine position. Resting perfusion study was performed on 01/10/2022. Patient was administered 30 mCi of sestamibi intravenously at rest. Images were then obtained in supine position. Total DLP 141mGy-cm. Images were processed with the software and compared side to side in short axis, horizontal long axis and vertical long axis views. FINDINGS: Raw images were reviewed. The stress perfusion study showed mildly diminished tracer uptake in the apex. There is improvement with CT attenuation correction and hence could be from soft tissue attenuation artifact. The gated study shows normal LV systolic function with calculated LVEF of 62%. LV cavity is normal in size. The gated study shows normal wall thickening and contraction of segments. Resting study shows no significant perfusion abnormality. Gating at rest reveals normal wall motion with ejection fraction at 64%. The findings are consistent with apparent reversible mild apical defect suspected to be from soft tissue attenuation. NM/NM cardiolite stress test IMPRESSION: 1. Myocardial perfusion imaging study shows likely normal myocardial perfusion. Mild reversible apical defect that could be from soft tissue attenuation artifact. 2. Gated LVEF is 62% during stress and 64% during rest. 3. Transient ischemic dilatation not present. EKG component of the test reported separately.
--- NOTE | 2022-01-05 09:24 | CA_ITS ---
Acquisition Time: 2022-01-05 09:24:20 Total Exercise Time: 00:06:24 Test Indications: CP, SOB Medications: SEE CHART Protocol: OSMAR Max HR: 136 BPM 90% of Pred: 151 BPM Max BP: 198/058 mmHG Max Work Load: 7.5 METS Exercise stress test with exercise 6 min 24 sec of Osmar protocol, with moderate shortness of breath and mild pressure in mid to left chest, with isolated PVCs in stage 3, with hypertensive response to exercise with max BP 198/58, with artifact during exercise making ST assessment more challenging, with up to [address] depression noted in V4-V6 at 13 sec of recovery which normalizes quickly. Artifactual finding can't be ruled out. SOB and BP improved in recovery. Nuclear images pending. Test reviewed with Dr Maria. Referred By: Thaddeus Willams Overread By: KODAK PATTON
== END ==
LOC: HO.CARD 09:20
PROVIDERS: Visit Provider Internal Medicine
DX: R07.2 Precordial pain (principal); R06.02 Shortness of breath
CPT/HCPCS: 78452; 93017; A9500

== ENCOUNTER → 2022-02-08 08:12 | Outpatient (REF) | payer MEDICARE, SELFPAY ==
--- NOTE | 2022-02-08 08:17 | CA_ITS ---
Transthoracic Echocardiogram Patient (Last, First, Middle): Mimi Menchaca, Gender: Female Date of : 1950 Age: 71 Procedure Date: 02/08/2022 Procedure Type: Transthoracic Echocardiogram Location: OP Height: 152.4 cm Weight: 88.45 kg BSA: 1.85 m2 Heart Rate: 65 bpm BP: 132 / 76 mmHg Heel Turner: SB Referring MD: Thaddeus Willams MD Symptoms: R06.02 - Shortness of breath Study Quality: Fair/Contrast ECG Rhythm: Sinus Conclusions: - The left ventricular systolic function is normal. The visually estimated ejection fraction is between 60-65%. - No obvious valvular pathology seen on this study. Findings Procedure Information Contrast agent, definity, is being given per protocol without apparent complications. Left Ventricle Normal left ventricular cavity size. There is normal left ventricular wall thickness. The left ventricular systolic function is normal. The visually estimated ejection fraction is between 60-65%. There is no evidence of regional wall motion abnormalities. Diastolic function is normal for age. Right Ventricle Normal right ventricular cavity size and systolic function. Atria Both atria are normal in size. Aortic Valve The aortic valve was not well visualized. There is no aortic valve stenosis. There is no aortic valve regurgitation. Mitral Valve The mitral valve appears normal. There is no mitral valve regurgitation. There is no mitral valve stenosis. Pulmonic Valve The pulmonic valve is likely normal. Tricuspid Valve There is trace tricuspid valve regurgitation. Tricuspid regurgitation envelope is inadequate for calculation of right ventricular systolic pressure. Great Vessels The asc aorta is normal in size. Venous The inferior vena cava is normal in size and collapses greater than 50% with inspiration. Pericardium/Pleural There is no evidence of pericardial effusion. Prior Study Comparison No prior study available for comparison. Recommendations, Care & Conclusions No obvious valvular pathology seen on this study. Measurements 2D Linear Measurements IVSd: 0.98 0.6-0.9/0.6-1.0 cm LVIDd: 5.29 3.9-5.3/4.2-5.9 cm LVIDd Index: 2.86 2.4-3.2/2.2-3.1 cm/m2 LVIDs: 3.20 2.0-3.6 cm LVPWd: 0.77 0.7-1.1 cm LA Diam: 3.90 2.7-3.8/3.0-4.0 cm LAIDs Index: 2.11 1.5-2.3 cm/m2 LV Mass: 208.60 67-162/88-224 g LV Mass Index: 112.76 43-95/49-115 g/m2 LVOT Diam: 2.10 3.0+(-)1.3 cm 2D Systolic Function EF 4C: 65.30 >55% EF 2C: 78.50 >55% Mitral Valve MV Pk E: 0.85 MV PK A: 0.90 MV Decel Time: 221.00 E/A: 0.90 E'Lateral: 8.38 E'Medial: 5.00 E/E' Med: 17.00 E/E' Lat: 10.10 PHT: 65.00 MVA PHT: 3.38 Decel [place]: 3.85 Aortic Valve AoV Pk Tyson: 1.31 AoV Mn Tyson: 0.88 AoV VTI: 0.28 AoV Pk Grad: 7.00 Aov Mn Grad: 3.00 GRAYSON Cont.VTI: 3.32 LVOT LVOT Pk Tyson: 1.16 LVOT Mn Tyson: 0.81 LVOT VTI: 0.27 LVOT Pk Grad: 5.00 LVOT Mn Grad: 3.00 LVOT Diam: 2.10 LVOT Area: 3.46 Diastolic Function MV Pk E: 0.85 MV Pk A: 0.90 E/A: 0.90 E'Medial: 5.00 E/E' Med: 17.00 E' Laterial: 8.38 E/E' Lat: 10.10 Right Ventricle TAPSE (mm): 19.80 TVS' Tyson: 12.50 Tricuspid Valve RA Press: 3.00 Great Vessels Aorta Sinus of Valsalva: 2.90 2.0-3.[address] [place]: 2.75 1.7-3.4 cm Ao Asc: 3.40 2.1-3.4 cm Pulmonary Valve PV Pk Tyson: 1.04 Peak PV Grad: 4.00 Updated in Other Vendor System with Status of Final Thaddeus Willams MD electronically signed on 02/11/2022 12:07:42 PM with status of Final
== END ==
LOC: HO.CARD 08:12
PROVIDERS: Visit Provider Internal Medicine
DX: R06.02 Shortness of breath (principal); R07.9 Chest pain, unspecified
CPT/HCPCS: 93306; Q9957

== ENCOUNTER → 2022-10-27 11:24 | Outpatient (BNVA) | payer OTHER, SELFPAY | PROVIDERS: PCP Family Medicine; Visit Provider Internal Medicine | DX: S90.02XA Contusion of left ankle, initial encounter (principal); S40.012A Contusion of left shoulder, initial encounter; S20.20XA Contusion of thorax, unspecified, initial encounter; W01.0XXA Fall on same level from slipping, tripping and stumbling without subsequent striking against object, initial encounter | CPT/HCPCS: 71101; 73030; 73610; 99203 ==

== ENCOUNTER → 2022-11-03 10:08 | Outpatient (BNVA) | payer OTHER, SELFPAY | PROVIDERS: PCP Family Medicine; Visit Provider Internal Medicine | DX: S40.012D Contusion of left shoulder, subsequent encounter (principal); S20.219D Contusion of unspecified front wall of thorax, subsequent encounter; S93.402D Sprain of unspecified ligament of left ankle, subsequent encounter; W18.30XD Fall on same level, unspecified, subsequent encounter | CPT/HCPCS: 70450; 99214 ==

== ENCOUNTER → 2022-11-10 09:40 | Outpatient (BNVA) | payer OTHER, SELFPAY | PROVIDERS: PCP Family Medicine; Visit Provider Internal Medicine | DX: R51.9 Headache, unspecified (principal); R10.9 Unspecified abdominal pain; R07.81 Pleurodynia; M25.512 Pain in left shoulder | CPT/HCPCS: 99213 ==

== ENCOUNTER → 2022-11-17 10:57 | Outpatient (BNVA) | payer OTHER, SELFPAY | PROVIDERS: PCP Family Medicine; Visit Provider Internal Medicine | DX: R07.81 Pleurodynia (principal); R51.9 Headache, unspecified | CPT/HCPCS: 99213 ==

== ENCOUNTER 2022-11-29 08:22 | Outpatient (REF) | payer OTHER, SELFPAY ==
--- NOTE | ~2022-11-29 | CT_ITS ---
EXAMINATION: CT ABDOMEN WITHOUT CONTRAST CLINICAL INFORMATION: Injury to abdominal wall. COMPARISON: CT abdomen and pelvis 10/28/2017. TECHNIQUE: Contiguous axial thin section helical images of the abdomen were performed without contrast. The data set was reformatted in the coronal and sagittal planes and reviewed on an independent workstation. This CT examination was performed using dose optimization techniques as appropriate, variously including the following: *Automated exposure control *Adjustment of mA and/or kV according to patient size (this includes techniques or standardized protocols for targeted exams where dose is matched to indication/reason for exam; i.e. extremities or head) *Use of iterative reconstruction technique DLP: 412 mGy-cm FINDINGS: LUNG BASES: The lung bases are clear. The heart size is normal. LIVER, GALLBLADDER, BILIARY TREE: The liver is homogeneous in density, normal size and contour. No focal lesion or intrahepatic ductal dilatation seen. There are no radiopaque gallstones or wall thickening. PANCREAS: The pancreas is homogeneous in echotexture without enlargement. Peripancreatic fat borders are maintained normal. SPLEEN: The spleen is normal size and density. ADRENAL GLANDS AND KIDNEYS: Unremarkable adrenal glands. Both kidneys are normal size, shape and position. No radiopaque calculi or hydronephrosis seen. The left kidney measures 10.4 cm in length and the right kidney measures 9.93 cm in length. BOWEL LOOPS: There is scattered oral contrast throughout the colon and small bowel loops without any distention or mural thickening. LYMPH NODES: No abnormal lymph nodes visualized. VASCULAR: The abdominal aorta is of normal caliber. Infrarenal IVC is absent. The suprarenal IVC essentially fills from left renal vein. There is an infrarenal IVC which narrows or stricture at the inferior pole of right kidney. No obstructive etiology seen. This could be developmental. Both renal veins drain into the suprarenal IVC. ABDOMINAL WALL: There is no evidence of abdominal wall hernia, contusion or edema. BONES: There are degenerative disc changes lower dorsal spine with moderate ventral spondylosis lower dorsal and entire lumbar spine. No aggressive lytic or sclerotic process seen. There is vacuum disc phenomena L4-L5 disc level. CT/CT abdomen wo IV con IMPRESSION: 1. No acute intra-abdominal process seen. 2. 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 This could be developmental. Both renal veins drain into the suprarenal IVC. 3. No abdominal wall contusion, edema or hernia. 4. Degenerative disc changes lower dorsal and entire lumbar spine. Fleischner guidelines were followed.
[2022-11-29] MEDS: Barium Sulfate Oral (Berry) 450 ML ORAL.SUSP PO (10:28)
== END 2022-11-29 08:23 | disposition home or self-care (01) ==
LOC: HO.CT 08:22
PROVIDERS: PCP Family Medicine; Visit Provider Internal Medicine
DX: S30.92XA Unspecified superficial injury of abdominal wall, initial encounter (principal)
CPT/HCPCS: 74150

== ENCOUNTER → 2022-12-08 10:08 | Outpatient (BNVA) | payer OTHER, SELFPAY | PROVIDERS: PCP Family Medicine; Visit Provider Internal Medicine | DX: R51.9 Headache, unspecified (principal); R10.9 Unspecified abdominal pain; R07.81 Pleurodynia; M25.512 Pain in left shoulder; Z91.81 History of falling | CPT/HCPCS: 99214 ==

== ENCOUNTER → 2022-12-20 09:46 | Outpatient (BNVA) | payer OTHER, SELFPAY | PROVIDERS: PCP Family Medicine; Visit Provider Internal Medicine | DX: R10.9 Unspecified abdominal pain (principal); S40.012D Contusion of left shoulder, subsequent encounter; W01.0XXD Fall on same level from slipping, tripping and stumbling without subsequent striking against object, subsequent encounter | CPT/HCPCS: 99213 ==

== ENCOUNTER 2023-01-09 10:00 | Outpatient (RCR) | payer OTHER, SELFPAY | END 2023-01-24 14:12 | disposition home or self-care (01) | LOC: HO.PTCHIC 10:00 | PROVIDERS: PCP Family Medicine; Visit Provider Physician Assistant | DX: M75.122 Complete rotator cuff tear or rupture of left shoulder, not specified as traumatic (principal) | CPT/HCPCS: 97014; 97110; 97140; 97161 ==

== ENCOUNTER 2023-01-29 12:44 | Emergency (ER) | payer MEDICARE, SELFPAY ==
--- NOTE | ~2023-01-29 | CT_ITS ---
EXAMINATION: CT ABDOMEN AND PELVIS WITHOUT CONTRAST CLINICAL INFORMATION: Colitis. COMPARISON: None available. TECHNIQUE: Multidetector volumetric imaging was performed from the superior aspect of the liver through the pubic symphysis. Sagittal and coronal reformatted images were obtained on the technologist's workstation. This CT examination was performed using dose optimization techniques as appropriate, variously including the following: *Automated exposure control *Adjustment of mA and/or kV according to patient size (this includes techniques or standardized protocols for targeted exams where dose is matched to indication/reason for exam; i.e. extremities or head) *Use of iterative reconstruction technique DLP: 760 mGy-cm FINDINGS: LUNG BASES: Minimal atelectatic changes are seen in left lung base. The heart size is normal. LIVER, GALLBLADDER, AND BILIARY TREE: The liver is normal in size, shape, and attenuation. No focal hepatic lesion or biliary ductal dilatation is present. The gallbladder is unremarkable with no evidence of radiopaque gallstones, gallbladder wall thickening, or obvious pericholecystic inflammatory changes. PANCREAS: Unremarkable. SPLEEN: Unremarkable. ADRENAL GLANDS: Unremarkable. KIDNEYS AND URETERS: The kidneys are normal in size, shape, and attenuation. No hydronephrosis, hydroureter, or calculi seen. No perinephric stranding. BLADDER: Unremarkable. GASTROINTESTINAL TRACT: There is scattered diverticula and stool seen throughout colon without distention. The small bowel loops are normal caliber. Appendix is normal caliber. No inflammatory process or free air seen. ABDOMINAL WALL: No significant hernia is appreciated. LYMPH NODES: Normal. VASCULAR: Unremarkable. PELVIC VISCERA: Unremarkable. OSSEOUS STRUCTURES: No aggressive lytic or sclerotic process seen. There is mild ventral spondylosis upper and mid dorsal spine. No aggressive lytic or sclerotic process seen. CT/CT abdomen pelvis wo IV con IMPRESSION: 1. No acute intra-abdominal process seen. 2. Scattered colonic diverticulosis without diverticulitis. Mild constipation. Fleischner guidelines were followed.
--- NOTE | 2023-01-29 12:50 | ECG_ITS ---
Test Reason : chest pain Blood Pressure : / mmHG Vent. Rate : 077 BPM Atrial Rate : 077 BPM P-R Int : 162 ms QRS Dur : 084 ms QT Int : 406 ms P-R-T Axes : 039 -23 011 degrees QTc Int : 459 ms Normal sinus rhythm Moderate voltage criteria for LVH, may be normal variant ( R in aVL , [place] product ) Septal infarct , age undetermined Abnormal ECG When compared with ECG of 25-OCT-2021 12:31, Septal infarct is now Present Referred By: Generic ED Physician Electronically Signed By:CAROLYN DIA MD
[2023-01-29 13:07] VITALS: BP 136/80; PULSE 75; RESP 18; TEMP 36.6; O2SAT 96; BMI 39.0
[2023-01-29 13:10] LABS: MANUAL DIFF FLAG NO
[2023-01-29 13:12] LABS: Basophils Absolute Auto 0.1 X10*3/uL (0.0-0.2); Basophils Percent Auto 0.6 % (0-2); Eosinophils Absolute Auto 0.1 X10*3/uL (0.0-0.4); Eosinophils Percent Auto 1.1 % (0-4); Hematocrit 38.2 % (37.0-47.0); Hemoglobin 12.8 g/dl (12.0-16.0); Imm Gran Abs Auto 0.09 X10*3/uL (0.00-0.03); Lymphocytes Absolute Auto 1.4 X10*3/uL (1.2-4.9); Lymphocytes Percent Auto 15.2 % (20-40); Mean Corpuscular HGB Conc 33.5 g/dl (31.0-35.0); Mean Corpuscular Hemoglobin 29.2 pg (27.0-33.0); Mean Corpuscular Volume 87.2 fL (80.0-98.0); Mean Platelet Volume 9.4 fL (9.4-12.3); Monocytes Absolute Auto 1.2 X10*3/uL (0.1-1.2); Monocytes Percent Auto 13.2 % (2-11); Neutrophils Absolute Auto 6.5 x10*3/uL (2.0-8.3); Neutrophils Percent Auto 68.9 % (45-73); Platelet Count 246 X10*3/uL (160-400); Red Blood Count 4.38 X10*6/uL (4.20-5.50); White Blood Count 9.4 X10*3/uL (4.8-10.8)
[2023-01-29 13:20] LABS: Partial Thromboplastin Time 30.4 SEC (26.0-36.4)
[2023-01-29 13:33] LABS: Anion Gap 16 (12-20); Blood Urea Nitrogen 19 mg/dL (9-16); Calcium 9.6 mg/dL (8.4-10.2); Carbon Dioxide 22 mmol/L (22-29); Chloride 101 mmol/L (96-108); Creatinine Clr Calc Pharmacy 64.8; Estimated Glomerular Filt Rate > 60; Glucose Random 125 mg/dL (60-115); Potassium 3.1 mmol/L (3.3-5.1); Sodium 136 mmol/L (135-145)
[2023-01-29 13:39] LABS: B Type Natriuretic Peptide < 10 pg/mL (<100)
--- NOTE | 2023-01-29 15:08 | ED.GENADULT ---
HPI - General Adult General Chief complaint: General Medical Stated complaint: Weak Chest Pain X 3 Days Time Seen by Provider: 01/29/23 14:40 Source: patient Mode of arrival: ambulatory Limitations: no limitations History of Present Illness HPI narrative: Patient has a congestive heart failure, hypertension comes in for diarrhea for last 5 days and mid chest pain radiating to the left side and left arm patient says having a watery stool every time she eats anything no recent travel or use of antibiotics has slight nausea no fever or chills no recent travel Related Data Home Medications Medication Instructions Recorded Confirmed amlodipine 2.5 mg tablet 2.5 mg PO DAILY 12/09/21 12/09/21 chlorthalidone 25 mg tablet 25 mg PO DAILY 12/09/21 12/09/21 escitalopram oxalate 10 mg tablet 10 mg PO DAILY 12/09/21 12/09/21 turmeric 400 mg capsule mg PO 12/09/21 12/09/21 zolpidem 5 mg tablet 5 mg PO BEDTIME PRN insomnia 12/09/21 12/09/21 Previous Rx's Medication Instructions Recorded loperamide 2 mg tablet (Diamode) 2 mg PO Q6H PRN loose stool #14 01/29/23 tabs ondansetron 4 mg disintegrating 4 mg PO Q6-8H PRN nausea and 01/29/23 tablet vomiting #7 tabs Allergies Allergy/AdvReac Type Severity Reaction Status Date / Time No Known Allergies Allergy Verified 12/09/21 09:05 Review of Systems Review of Systems: Yes all other systems are reviewed and are negative PMFSH Past Medical History Medical History Depression HTN (hypertension) Surgical History History of right knee surgery Family History Family History Father Myocardial infarct Mother No problems noted. Social History Social History Alcohol intake: current Alcohol intake frequency: 0-2 drinks per day Alcohol type: wine Patient Tobacco Use Status: Never used Tobacco Advance Directives: No Advance Directives Information Provided: Yes Physical Exam ED Vital Signs: Vital Signs - 24 hr 01/29/23 13:07 Temperature 97.8 F Pulse Rate 75 Respiratory Rate 18 Blood Pressure 136/80 Pulse Oximetry 96 Oxygen Delivery Method Room Air BMI result Body Mass Index 39.0 Appearance: Alert. Oriented X3. No acute distress. Eyes: No pallor or icterus ENT: Pharynx normal. Oral Mucosa moist Neck: Normal inspection. Neck supple. CVS: Normal heart rate and rhythm. Pulses normal. Respiratory: No respiratory distress. Equal air entry bilateral, no wheezing/rales/rhonchi Abdomen: Soft and mild tenderness diffuse. Bowel sounds are present, no mass palpable, no CVA tenderness Skin: Skin warm and dry. Normal skin color. Normal skin turgor. Extremities: No lower extremity edema. No calf tenderness Neuro: Oriented X 3. No motor deficit. Medications Administered Generic Name Dose Route Start Last Admin Trade Name Freq PRN Reason Stop Dose Admin Potassium Chloride 10 meq in 100 mls @ 100 mls/hr 01/29/23 15:45 01/29/23 16:34 Potassium Chloride/H20 IV 01/29/23 16:44 100 mls/hr ONCE ONE Administration Discontinued Medications Generic Name Dose Route Start Last Admin Trade Name Freq PRN Reason Stop Dose Admin Sodium Chloride 1,000 mls @ 999 mls/hr 01/29/23 15:28 01/29/23 15:40 Ns IV 01/29/23 16:28 999 mls/hr .Q1H1M ONE Administration Loperamide HCl 4 mg 01/29/23 15:28 01/29/23 15:45 Loperamide Hcl 2 Mg Capsule PO 01/29/23 15:29 4 mg ONCE ONE Administration Lorazepam 1 mg 01/29/23 16:19 01/29/23 16:34 Lorazepam 2 Mg/Ml Vial IVPUSH 01/29/23 16:20 1 mg ONCE ONE Administration Medical Decision Making Medical Decision Making MDM Narrative: Patient with acute enteritis labs are stable awaiting for the CT scan to see any acute pathology. Will check the stool for C diff was unlikely to have C diff as no exposure or use of antibiotics patient CT scan is seen by myself and is negative signed out to Dr. Crocker pending final report of CT scan Lab Data [facility] Lab Attestation statement: I reviewed the patient's lab results. 01/29/23 13:07 01/29/23 13:07 Labs: Lab Results 01/29/23 01/29/23 01/29/23 Range/Units 13:06 13:06 13:07 WBC 9.4 (4.8-10.8) X10*3/uL RBC 4.38 (4.20-5.50) X10*6/uL Hgb 12.8 (12.0-16.0) g/dl Hct 38.2 (37.0-47.0) % MCV 87.2 (80.0-98.0) fL MCH 29.2 (27.0-33.0) pg MCHC 33.5 (31.0-35.0) g/dl RDW 15.0 (11.0-16.0) % Plt Count 246 (160-400) X10*3/uL MPV 9.4 (9.4-12.3) fL Immature Gran % (Auto) 1.0 H (0.0-0.4) % Neut % (Auto) 68.9 (45-73) % Lymph % (Auto) 15.2 L (20-40) % [place] % (Auto) 13.2 H (2-11) % Eos % (Auto) 1.1 (0-4) % Baso % (Auto) 0.6 (0-2) % Lymph # (Auto) 1.4 (1.2-4.9) X10*3/uL [place] # (Auto) 1.2 (0.1-1.2) X10*3/uL Eos # (Auto) 0.1 (0.0-0.4) X10*3/uL Baso # (Auto) 0.1 (0.0-0.2) X10*3/uL Abs Immat Gran (auto) 0.09 H (0.00-0.03) X10*3/uL Absolute Neuts (auto) 6.5 (2.0-8.3) x10*3/uL Absolute Nucleated RBC 0.000 (0.0-0.012) X10*3/uL Nucleated RBC % (auto) 0.0 (0.0-0.2) /100WBC APTT (26.0-36.4) SEC Sodium (135-145) mmol/L Potassium (3.3-5.1) mmol/L Chloride (96-108) mmol/L Carbon Dioxide (22-29) mmol/L Anion Gap (12-20) BUN (9-16) mg/dL Creatinine (0.5-1.4) mg/dL Estim Creat Clear Calc Estimated GFR Random Glucose (60-115) mg/dL Calcium (8.4-10.2) mg/dL Troponin I High Sens 6.0 (<3.5-17.0) ng/L B-Natriuretic Peptide < 10 (<100) pg/mL 01/29/23 01/29/23 Range/Units 13:07 13:07 WBC (4.8-10.8) X10*3/uL RBC (4.20-5.50) X10*6/uL Hgb (12.0-16.0) g/dl Hct (37.0-47.0) % MCV (80.0-98.0) fL MCH (27.0-33.0) pg MCHC (31.0-35.0) g/dl RDW (11.0-16.0) % Plt Count (160-400) X10*3/uL MPV (9.4-12.3) fL Immature Gran % (Auto) (0.0-0.4) % Neut % (Auto) (45-73) % Lymph % (Auto) (20-40) % [place] % (Auto) (2-11) % Eos % (Auto) (0-4) % Baso % (Auto) (0-2) % Lymph # (Auto) (1.2-4.9) X10*3/uL [place] # (Auto) (0.1-1.2) X10*3/uL Eos # (Auto) (0.0-0.4) X10*3/uL Baso # (Auto) (0.0-0.2) X10*3/uL Abs Immat Gran (auto) (0.00-0.03) X10*3/uL Absolute Neuts (auto) (2.0-8.3) x10*3/uL Absolute Nucleated RBC (0.0-0.012) X10*3/uL Nucleated RBC % (auto) (0.0-0.2) /100WBC APTT 30.4 (26.0-36.4) SEC Sodium 136 (135-145) mmol/L Potassium 3.1 L D (3.3-5.1) mmol/L Chloride 101 (96-108) mmol/L Carbon Dioxide 22 (22-29) mmol/L Anion Gap 16 (12-20) BUN 19 H (9-16) mg/dL Creatinine 0.81 (0.5-1.4) mg/dL Estim Creat Clear Calc 64.8 Estimated GFR > 60 Random Glucose 125 H (60-115) mg/dL Calcium 9.6 (8.4-10.2) mg/dL Troponin I High Sens (<3.5-17.0) ng/L B-Natriuretic Peptide (<100) pg/mL Discharge Plan Discharge Clinical Impression: Acute colitis Patient Disposition: Home, Self-Care Instructions: Acute Diarrhea (ED) Additional Instructions: Drink plenty of fluids Imodium as advised for severe diarrhea Zofran for nausea Follow with PCP if not better Have food containing high potassium like bananas/orange juice Prescriptions: New loperamide [Diamode] 2 mg tablet 2 mg PO Q6H PRN (Reason: loose stool) Qty: 14 0RF ondansetron 4 mg tablet,disintegrating 4 mg PO Q6-8H PRN (Reason: nausea and vomiting) Qty: 7 0RF No Action escitalopram oxalate 10 mg tablet 10 mg PO DAILY zolpidem 5 mg tablet 5 mg PO BEDTIME PRN (Reason: insomnia) chlorthalidone 25 mg tablet 25 mg PO DAILY amlodipine 2.5 mg tablet 2.5 mg PO DAILY turmeric 400 mg capsule PO
[2023-01-29] MEDS: 0.9 % Sodium Chloride 1,000 ML 999 ML IV (15:40)
[2023-01-29] MEDS: Loperamide HCl 2 MG CAPSULE 4 MG PO (15:45)
[2023-01-29] MEDS: Potassium Chloride/H20 10 MEQ/100 ML PIGGYBACK 100 MEQ IV (16:34)
[2023-01-29] MEDS: LORazepam 2 MG/ML VIAL 1 MG IVPUSH (16:34)
[2023-01-29 16:52] LABS: Appearance Urine Clear; Color Urine Dark Yellow; Glucose Urine UA Negative (Negative); Leukocyte Esterase Urine Trace (Negative); Nitrite Urine Negative (Negative); UMIC TRIGGER UACC YES; Urine Blood Negative (Negative); Urine Ketones Negative (Negative); Urine Protein Negative (Neg-Trace)
[2023-01-29 16:58] LABS: Bacteria Urine 2+ (None Seen); Hyaline Casts Urine 0-2 /LPF (0-2); RBC Urine 0-2 /HPF (0-2); WBC Urine 0-5 /HPF (0-5)
[2023-01-29 17:49] VITALS: BP 132/75; PULSE 68; RESP 18; TEMP 37; O2SAT 97
[2023-01-29 21:54] LABS: CDiff Gene PCR NEGATIVE (Negative)
== END 2023-01-29 17:57 | disposition home or self-care (01) ==
PROVIDERS: Emergency Provider Internal Medicine; PCP Family Medicine
DX: K52.9 Noninfective gastroenteritis and colitis, unspecified (principal); R07.89 Other chest pain; R06.02 Shortness of breath; M79.602 Pain in left arm; Z79.899 Other long term (current) drug therapy
CPT/HCPCS: 36415; 74176; 80048; 81001; 83880; 84484; 85025; 85730; 87493; 93005; 99284; 99285; J2060

== ENCOUNTER 2024-02-07 10:27 | Outpatient (REF) | payer MEDICARE, SELFPAY ==
[2024-02-07 14:04] LABS: MANUAL DIFF FLAG NO
[2024-02-07 14:27] LABS: Basophils Absolute Auto 0.1 X10*3/uL (0.0-0.2); Basophils Percent Auto 0.6 % (0-2); Eosinophils Absolute Auto 0.2 X10*3/uL (0.0-0.4); Eosinophils Percent Auto 2.3 % (0-4); Hematocrit 40.7 % (37.0-47.0); Hemoglobin 13.6 g/dl (12.0-16.0); Imm Gran Abs Auto 0.05 X10*3/uL (0.00-0.03); Imm Gran Pct Auto 0.6 % (0.0-0.4); Lymphocytes Absolute Auto 1.7 X10*3/uL (1.2-4.9); Lymphocytes Percent Auto 20.9 % (20-40); Mean Corpuscular HGB Conc 33.4 g/dl (31.0-35.0); Mean Corpuscular Hemoglobin 28.6 pg (27.0-33.0); Mean Corpuscular Volume 85.7 fL (80.0-98.0); Mean Platelet Volume 10.7 fL (9.4-12.3); Monocytes Absolute Auto 0.6 X10*3/uL (0.1-1.2); Monocytes Percent Auto 6.9 % (2-11); Neutrophils Absolute Auto 5.7 x10*3/uL (2.0-8.3); Neutrophils Percent Auto 68.7 % (45-73); Platelet Count 269 X10*3/uL (160-400); Red Blood Count 4.75 X10*6/uL (4.20-5.50); Red Cell Distribution Width 13.7 % (11.0-16.0); White Blood Count 8.3 X10*3/uL (4.8-10.8)
[2024-02-07 14:41] LABS: Alanine Aminotransferase 17 U/L (0-31); Alkaline Phosphatase 74 U/L (39-117); Aspartate Amino Transferase 20 U/L (5-31); Bilirubin Total 0.4 mg/dL (0.0-1.0); Blood Urea Nitrogen 22 mg/dL (9-16); Calcium 9.6 mg/dL (8.4-10.2); Cholesterol 192 mg/dL (<200); Estimated Glomerular Filt Rate > 60; Glucose Random 126 mg/dL (60-115); HDL Cholesterol 63 mg/dL (>40); LDL Cholesterol Calculated 99 mg/dL (<100); Total Protein 7.6 g/dL (6.5-8.0); Triglycerides 152 mg/dL (<150)
[2024-02-07 14:53] LABS: Thyroid Stimulating Hormone 2.27 uIU/mL (0.32-4.0)
[2024-02-07 15:22] LABS: Anion Gap 15 (12-20); Carbon Dioxide 25 mmol/L (22-29); Chloride 106 mmol/L (96-108); Sodium 143 mmol/L (135-145)
[2024-02-07 15:25] LABS: Potassium 2.9 mmol/L (3.3-5.1)
== END 2024-02-07 10:28 | disposition home or self-care (01) ==
LOC: HO.HMGCLDS 10:27
PROVIDERS: PCP Internal Medicine; Visit Provider Internal Medicine
DX: Z00.00 Encounter for general adult medical examination without abnormal findings (principal); F32.5 Major depressive disorder, single episode, in full remission; F41.8 Other specified anxiety disorders; I10 Essential (primary) hypertension
CPT/HCPCS: 36415; 80053; 80061; 84443; 85025

== ENCOUNTER 2024-02-15 10:12 | Outpatient (REF) | payer MEDICARE, SELFPAY ==
[2024-02-15 13:15] LABS: Magnesium 1.7 mg/dL (1.6-2.6); Potassium 3.8 mmol/L (3.3-5.1)
== END 2024-02-15 10:13 | disposition home or self-care (01) ==
LOC: HO.HMGCLDS 10:12
PROVIDERS: PCP Internal Medicine; Visit Provider Internal Medicine
DX: E87.6 Hypokalemia (principal)
CPT/HCPCS: 36415; 83735; 84132

== ENCOUNTER 2024-03-06 10:59 | Outpatient (REF) | payer MEDICARE, SELFPAY ==
--- NOTE | ~2024-03-06 | MM_ITS ---
EXAMINATION: MM SCREENING DIGITAL BREAST TOMOSYNTHESIS, BILATERAL CLINICAL INFORMATION: Screening. Asymptomatic. COMPARISON: Mammography: This study is compared with prior exams dating back to 2015. TECHNIQUE: Digital breast tomosynthesis is performed in both the craniocaudal and mediolateral oblique views along with computer-aided detection (CAD). Synthesized 2D images are generated from the tomosynthesis. FINDINGS: The breasts are almost entirely fatty (ACR BI-RADS breast composition Category a). There are no significant masses, abnormal calcifications, or other abnormalities. MM/MM tomosynthesis screening BI IMPRESSION: No mammographic evidence of malignancy. ASSESSMENT: BI-RADS BI-RADS 1 - Negative RECOMMENDATION: Routine annual mammography screening. 1 year F/U This examination should not preclude the clinical evaluation of a suspicious palpable abnormality. This patient's information was entered into a reminder system with a target due date for their next mammogram.
== END 2024-03-06 11:00 | disposition home or self-care (01) ==
LOC: HO.MAMMO 10:59
PROVIDERS: PCP Internal Medicine; Visit Provider Internal Medicine
DX: Z12.31 Encounter for screening mammogram for malignant neoplasm of breast (principal)
CPT/HCPCS: 77063; 77067

== ENCOUNTER → 2024-03-06 11:15 | Outpatient (BNV) | payer MEDICARE, SELFPAY | PROVIDERS: PCP Internal Medicine; Visit Provider Radiology Diagnostic Radiology | DX: Z12.31 Encounter for screening mammogram for malignant neoplasm of breast (principal) | CPT/HCPCS: 77063; 77067 ==

== ENCOUNTER 2024-05-09 08:45 | Outpatient (REF) | payer MEDICARE, SELFPAY ==
[2024-05-09 10:37] LABS: Estimated Average Glucose 111 mg/dL; Hemoglobin A1c % 5.5 % (<6.0)
[2024-05-09 10:44] LABS: Alanine Aminotransferase 19 U/L (0-31); Alkaline Phosphatase 75 U/L (39-117); Anion Gap 12 (12-20); Aspartate Amino Transferase 23 U/L (5-31); Bilirubin Total 0.6 mg/dL (0.0-1.0); Blood Urea Nitrogen 12 mg/dL (9-16); Calcium 9.4 mg/dL (8.4-10.2); Carbon Dioxide 23 mmol/L (22-29); Chloride 110 mmol/L (96-108); Estimated Glomerular Filt Rate > 60; Glucose Random 102 mg/dL (60-115); Potassium 3.9 mmol/L (3.3-5.1); Sodium 141 mmol/L (135-145); Total Protein 7.1 g/dL (6.5-8.0)
== END 2024-05-09 08:46 | disposition home or self-care (01) ==
LOC: HO.HMGCLDS 08:45
PROVIDERS: PCP Internal Medicine; Visit Provider Internal Medicine
DX: E87.6 Hypokalemia (principal); F32.9 Major depressive disorder, single episode, unspecified; F41.8 Other specified anxiety disorders; I10 Essential (primary) hypertension; R73.01 Impaired fasting glucose
CPT/HCPCS: 36415; 80053; 83036

== ENCOUNTER 2024-11-05 15:02 | Outpatient (AMB) | payer MEDICARE, SELFPAY ==
--- NOTE | 2024-11-05 15:58 | AM.OFFWIN_ITS ---
Intake Vital Signs 11/05/24 16:00 Weight 218 lb BP 130/80 Blood Pressure Location Rt brachial Position Sitting Pulse 60 Pulse Source Pulse Oximeter Temp 98.1 F Temp Source Oral Pulse Oximetry (%) 98 Oxygen Delivery Method Room Air Intake Visit Reasons: EP SOB, cough, rib pain, fatigue, weak Intake Note: Patient here for SOB, cough, rib pain from coughing, fatigue and weakness that has been present for about 12 days now with no improvement. Patient Tobacco Use Status: Never used Tobacco Allergies No Known Allergies Allergy (Verified 11/05/24 16:01) Do you need a note to return to daycare/school/sports/work: No HPI HPI Comments History of Present Illness Details This is a 74-year-old female with a past medical history of hypertension presenting for evaluation of a cough that she has had for the past 12 days. Patient states that she was coughing up yellow phlegm for the first 10 days however over the past 2 days she has developed chills, headache and myalgias. Patient has been taking Mucinex for her cough but no [id number] medication for her headaches. She denies having any chest pain, shortness for breath, nausea, vomiting or abdominal pain. [facility] Medical History Depression HTN (hypertension) Surgical History History of right knee surgery Family History Father Myocardial infarct Mother No problems noted. Social History Alcohol intake: current Alcohol intake frequency: 0-2 drinks per day Alcohol type: wine Patient Tobacco Use Status: Never used Tobacco Review of Systems Const All systems reviewed & are unremarkable except as noted in HPI and below Eyes Reports no additional complaints ENT Reports no additional complaints Card Denies chest pain Resp Reports cough and Denies wheezing GI Reports no additional complaints Reports no additional complaints Musc Reports no additional complaints Skin/Breast Reports system reviewed and no additional complaints, except as documented Neuro Reports no additional complaints Psych Reports no additional complaints Endo Reports no additional complaints Tyler/Lymph Reports no additional complaints Aller/Immun Reports no additional complaints and Denies wheezing Physical Exam Vital Signs: Last Vital Signs Temp 98.1 F 11/05/24 16:00 Pulse 60 11/05/24 16:00 BP 130/80 11/05/24 16:00 Pulse Ox 98 11/05/24 16:00 Oxygen Delivery Method Room Air 11/05/24 16:00 Patient is afebrile Const General: cooperative, comfortable, well developed, alert, awake and Physically active Nutritional Appearance: overweight Orientation/consciousness: patient oriented x3 Limitations: no limitations HEENT Head: Yes normal to inspection and Yes normocephalic Ears: hearing grossly normal bilaterally, external ears normal, TM's normal bilaterally and EAC's normal General nose exam: Normal external nose present Face and sinus: Yes normal facial exam Mouth: Normal oral and palatal mucosa present and moist mucous membranes Throat: Yes posterior oropharynx normal Eyes General: appearance normal, both eyes and all related structures Resp Effort & Inspection: normal respiratory effort, able to speak in complete sentences, no audible wheezes, no cough and not tachypneic Auscultation: clear to auscultation bilaterally Cardio Rate: regular rate Rhythm: regular rhythm Skin General skin exam: no rashes or lesions noted Neuro General: patient oriented x3 Psych Appearance: grossly normal Mental Status: mental status grossly normal Insight: Good insight present (Psych) Judgement: Good judgement present (Psych) Assessment & Plan Assessment & Plan (1) Acute upper respiratory infection: Comment: patient's lungs are clear to auscultation bilaterally, there is no wheezing or crackles noted and therefore imaging is deferred at this time. SARS panel is ordered and results are pending. Code(s): J06.9 - Acute upper respiratory infection, unspecified Plan: Mucinex daily with increased clear fluids, Tylenol or ibuprofen as needed for headache, follow up with PCP if symptoms persist longer than 7-10 days. Orders: Orders SARS-CoV2/FLU/RSV Today J06.9 - Acute upper respiratory infection, unspecified Coding Level of Care Code Est Pt Level 3 (42927) Diagnoses Acute upper respiratory infection J06.9 Time Spent (min) 20
[2024-11-05 16:00] VITALS: BP 130/80; PULSE 60; TEMP 36.7; O2SAT 98
== END 2024-11-05 16:26 | disposition home or self-care (01) ==
PROVIDERS: PCP Internal Medicine; Visit Provider Physician Assistant
DX: J06.9 Acute upper respiratory infection, unspecified (principal)

== ENCOUNTER 2024-11-05 15:02 | Outpatient (REF) | payer MEDICARE, SELFPAY ==
[2024-11-06 11:31] LABS: Influenza A PCR NEGATIVE (Negative); Influenza B PCR NEGATIVE (Negative); Resp Syncy Virus RNA Qual PCR NEGATIVE (Negative); SARS COV2 PCR INHOUSE NEGATIVE (Negative)
== END 2024-11-05 15:03 | disposition home or self-care (01) ==
LOC: HO.LNP 15:02
PROVIDERS: PCP Internal Medicine; Visit Provider Physician Assistant
DX: J06.9 Acute upper respiratory infection, unspecified (principal)
CPT/HCPCS: 0241U; 99212

== ENCOUNTER 2024-11-12 07:47 | Outpatient (REF) | payer MEDICARE, SELFPAY ==
[2024-11-12 10:25] LABS: MANUAL DIFF FLAG NO
[2024-11-12 10:31] LABS: Basophils Absolute Auto 0.1 X10*3/uL (0.0-0.2); Basophils Percent Auto 0.8 % (0-2); Eosinophils Absolute Auto 0.1 X10*3/uL (0.0-0.4); Eosinophils Percent Auto 1.3 % (0-4); Hematocrit 42.2 % (37.0-47.0); Hemoglobin 13.9 g/dl (12.0-16.0); Imm Gran Abs Auto 0.05 X10*3/uL (0.00-0.03); Imm Gran Pct Auto 0.6 % (0.0-0.4); Lymphocytes Absolute Auto 1.9 X10*3/uL (1.2-4.9); Lymphocytes Percent Auto 21.3 % (20-40); Mean Corpuscular HGB Conc 32.9 g/dl (31.0-35.0); Mean Corpuscular Hemoglobin 28.2 pg (27.0-33.0); Mean Corpuscular Volume 85.6 fL (80.0-98.0); Mean Platelet Volume 10.9 fL (9.4-12.3); Monocytes Absolute Auto 0.7 X10*3/uL (0.1-1.2); Monocytes Percent Auto 7.9 % (2-11); Neutrophils Percent Auto 68.1 % (45-73); Platelet Count 281 X10*3/uL (160-400); Red Blood Count 4.93 X10*6/uL (4.20-5.50); Red Cell Distribution Width 13.4 % (11.0-16.0); White Blood Count 8.8 X10*3/uL (4.8-10.8)
[2024-11-12 10:59] LABS: Alanine Aminotransferase 16 U/L (0-31); Albumin Level 4.3 g/dL (3.5-5.0); Alkaline Phosphatase 73 U/L (39-117); Anion Gap 11 (12-20); Aspartate Amino Transferase 22 U/L (5-31); Bilirubin Total 0.7 mg/dL (0.0-1.0); Blood Urea Nitrogen 18 mg/dL (9-16); Calcium 9.5 mg/dL (8.4-10.2); Carbon Dioxide 25 mmol/L (22-29); Chloride 108 mmol/L (96-108); Cholesterol 206 mg/dL (<200); Estimated Glomerular Filt Rate > 60; Glucose Random 119 mg/dL (60-115); HDL Cholesterol 76 mg/dL (>40); LDL Cholesterol Calculated 106 mg/dL (<100); Potassium 4.3 mmol/L (3.3-5.1); Sodium 140 mmol/L (135-145); Total Protein 8.2 g/dL (6.5-8.0); Triglycerides 121 mg/dL (<150)
== END 2024-11-12 07:48 | disposition home or self-care (01) ==
LOC: HO.HMGCLDS 07:47
PROVIDERS: PCP Internal Medicine; Visit Provider Internal Medicine
DX: F32.9 Major depressive disorder, single episode, unspecified (principal); F41.8 Other specified anxiety disorders; G47.00 Insomnia, unspecified; I10 Essential (primary) hypertension
CPT/HCPCS: 36415; 80053; 80061; 85025

== ENCOUNTER 2025-02-13 11:40 | Inpatient (IN) | payer MEDICARE, SELFPAY ==
--- NOTE | ~2025-02-13 | CT_ITS ---
EXAMINATION: CT CHEST ANGIOGRAPHY WITH IV CONTRAST INDICATION: Shortness of breath, dyspnea on exertion, R/O PE COMPARISON: Comparison is made with the prior examination dated 10/25/2021. TECHNIQUE: Helical CT scan of the chest was performed following administration of intravenous contrast (65 mL Omnipaque 350). The contrast bolus was timed to optimally opacify the pulmonary arteries. Thin sections were obtained through the pulmonary arteries. Coronal and sagittal reformatted images were generated. 3D/MIP reconstructed images are also obtained and reviewed. This CT exam was performed with one or more of the following dose reduction techniques: automated exposure control, adjustment of the mA and/or kV according to patient size, use of iterative reconstruction technique. DLP: 353 mGy-cm CHEST: THYROID: The thyroid gland is unremarkable. PULMONARY ARTERIES: No intraluminal filling defects are identified within the pulmonary arteries to suggest pulmonary emboli. LUNGS: There is patchy groundglass opacities in the lower lobes which may represent mild pulmonary edema. MEDIASTINUM: There is no mediastinal lymphadenopathy. EARNEST: There is no hilar lymphadenopathy. CARDIOVASCULATURE: The heart is enlarged. There is no pericardial effusion. The thoracic aorta is normal in caliber. DEGREE OF CORONARY CALCIFICATION: mild PLEURA: There are small bilateral pleural effusions. No pneumothorax. MAIN AIRWAYS: The mainstem bronchi and proximal branches are patent. AXILLA: There is no axillary lymphadenopathy. UPPER ABDOMEN: The visualized portions of the liver, spleen, and adrenals are unremarkable. BONES AND SOFT TISSUES: Unremarkable. CT/CT angio chest PE protocol IMPRESSION: No evidence of pulmonary emboli. Cardiomegaly, small bilateral pleural effusions, and probable mild pulmonary vascular congestion. Electronically signed by: Channing Farrar MD 02/13/2025 03:58 PM EDT
[2025-02-13 11:51] VITALS: BP 178/88; PULSE 67; RESP 18; TEMP 36.2; O2SAT 97; BMI 39.8
--- NOTE | 2025-02-13 11:52 | ED_ITS ---
HPI - General Adult General Chief complaint: Dyspnea Stated complaint: SOB Time Seen by Provider: 02/13/25 12:33 Source: patient Mode of arrival: ambulatory Limitations: no limitations History of Present Illness ED Provider: Dr. Diego Luna HPI narrative: 74-year-old female with a history of hyperlipidemia, CHF secondary to diastolic dysfunction, depression who presents emergency department for evaluation of persistent cough and worsening dyspnea on exertion. Patient travel to [facility] proximally 3 weeks prior. One week after your going degree she went on a cruise and states that while she was on the cruise she developed shortness of breath and a nonproductive cough. She states that she has had intermittent substernal chest pain. She has noted some swelling of her lower extremities. She states she is having significant dyspnea on exertion which is gotten progressively worse to the point where she can only walk 10 ft before getting winded. She states she has subjective fevers but no chills. She had occasional nausea secondary to coughing but no vomiting or diarrhea. She denied myalgias arthralgias. Patient has been seen in the past for dyspnea by Dr. Willams and did have a stress echo 01/05/2022 and an echocardiogram 02/08/2022 which revealed normal left ventricular systolic function with an EF of 60-65%. Related Data Home Medications ?Medication ?Instructions ?Recorded ?Confirmed amlodipine 2.5 mg tablet 2.5 mg PO DAILY 12/09/21 12/09/21 chlorthalidone 25 mg tablet 25 mg PO DAILY 12/09/21 12/09/21 escitalopram oxalate 10 mg tablet 10 mg PO DAILY 12/09/21 12/09/21 turmeric 400 mg capsule mg PO 12/09/21 12/09/21 zolpidem 5 mg tablet 5 mg PO BEDTIME PRN insomnia 12/09/21 12/09/21 Previous Rx's ?Medication ?Instructions ?Recorded loperamide 2 mg tablet (Diamode) 2 mg PO Q6H PRN loose stool #14 01/29/23 tabs ondansetron 4 mg disintegrating 4 mg PO Q6-8H PRN nausea and 01/29/23 tablet vomiting #7 tabs Allergies Allergy/AdvReac Type Severity Reaction Status Date / Time No Known Allergies Allergy Verified 02/13/25 11:56 Review of Systems 2 Review of Systems: Yes all other systems are reviewed and are negative [facility] Past Medical History [facility] Narrative: Social history: 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 She denies tobacco use. She occasionally drinks alcohol. She denies drug use. Medical History Depression HTN (hypertension) Surgical History History of right knee surgery Family History Family History Father Myocardial infarct Mother No problems noted. Social History Social History Alcohol intake: current Alcohol intake frequency: 0-2 drinks per day Alcohol type: wine Patient Tobacco Use Status: Never used Tobacco Advance Directives: No Advance Directives Information Provided: Yes Physical Exam ED Vital Signs: Vital Signs - 24 hr 02/13/25 11:51 02/13/25 14:27 02/13/25 16:52 Temperature 97.2 F 98.0 F 97.8 F Pulse Rate 67 63 75 Respiratory Rate 18 20 17 Blood Pressure 178/88 H 180/84 H 171/65 H Pulse Oximetry 97 96 98 Oxygen Delivery Method Room Air Room Air Room Air BMI result Body Mass Index 39.8 Vital signs revealed elevated blood pressure of 178/88 otherwise unremarkable. Exam: General: Awake, alert in no distress Head: Normocephalic, atraumatic EENT: PERRL, Lids normal, sclera normal, conjunctiva normal, nose normal , ears normal, throat without erythema or exudates Neck: Supple, no adenopathy Lung: breath sounds symmetric, no wheezing, rales or rhonchi Chest: symmetric movement, nontender Heart: regular rate and rhythm, normal S1, S2 no murmurs or rubs Abdomen: soft, non-tender, nondistended, normal bowel sounds Back: no vertebral tenderness, no CVAT Extremities: no deformities, moves all extremities symmetrically, trace pitting edema which is symmetric Neuro: Awake, alert, oriented, normal speech, cranial nerves intact, moves all extremities symmetrically Psych: Pleasant, cooperative Course Course Course Narrative: RME, this is a rapid medical exam performed by Sina Coleman please refer to primary provider for complete H&P- 74 year old female presents for evaluation of shortness of breath and dizziness. Symptoms started 2 weeks ago while she was on a [place]. She has a history of CHF and has leg swelling. Plan for EKG, labs, chest x-ray. Medications Administered Discontinued Medications Generic Name Dose Route Start Last Admin Trade Name Alejo PRN Reason Stop Dose Admin Aspirin 324 mg 02/13/25 16:45 02/13/25 16:54 Aspirin 81 Mg Tab.Chew PO 02/13/25 16:46 324 mg ONCE ONE Administration Furosemide 20 mg 02/13/25 16:45 02/13/25 16:54 Furosemide 20 Mg/2 Ml Vial IVPUSH 02/13/25 16:46 20 mg ONCE ONE Administration Protocol Iohexol 100 ml 02/13/25 15:44 02/13/25 15:45 Iohexol 350 Mg/Ml 100 Ml Infus..Btl IV 02/13/25 15:45 65 ml ONCE ONE Administration Medical Decision Making Medical Decision Making [facility] Narrative: 74-year-old female with a history of hyperlipidemia, CHF secondary to diastolic dysfunction, depression who presents emergency department for evaluation of persistent cough and worsening dyspnea on exertion. Patient travel to [facility] proximally 3 weeks prior. One week after your going degree she went on a cruise and states that while she was on the cruise she developed shortness of breath and a nonproductive cough. She states that she has had intermittent substernal chest pain. She has noted some swelling of her lower extremities. She states she is having significant dyspnea on exertion which is gotten progressively worse to the point where she can only walk 10 ft before getting winded. She states she has subjective fevers but no chills. She had occasional nausea secondary to coughing but no vomiting or diarrhea. She denied myalgias arthralgias. Vital signs revealed an elevated blood pressure. Physical examination revealed trace pitting edema which was symmetric otherwise unremarkable. Differential diagnosis: ?Includes but is not limited to pneumonia, bronchitis, pulmonary edema, cardiomyopathy, myocardial infarction, myocardial ischemia, dyspnea as anginal equivalent, pulmonary embolism, anemia, electrolyte abnormalities Course: 17:13 My independent interpretation patient's laboratory evaluation as follows: Microcytic anemia with an H&H of 11.5 and 34.4 with an MCV of 87. WBC was normal 7100. CMP was normal. COVID-19, influenza and RSV tests were negative. Troponin was detectable but not elevated at 8.3. BNP elevated 463. Patient's 12 EKG was unremarkable except for an occasional PVC. CT pulmonary angiogram did not reveal any pulmonary embolism or evidence for pneumonia. The patient does have cardiomegaly and mild pulmonary edema with small pleural effusions bilaterally. I did discuss these findings with the covering steel wool machine operator, Dr. Thorne. Given her significant dyspnea on exertion in her findings on the CT scan, patient will be admitted for further cardiac workup. Dr. Thorne recommended the patient get an echocardiogram. Patient was treated with aspirin 324 mg orally and Lasix 20 mg IV. 17:34 I did discuss the patient's presentation over tiger text with the covering hospitalist, Dr. Donnie Hicks the patient will be admitted for further evaluation. Admission/Observation Consideration of admission/observation: Escalation of care including admission/observation considered (Yes) Lab Data MDM Lab Attestation statement: I reviewed the patient's lab results. 02/13/25 12:12 02/13/25 12:12 Labs: Lab Results 02/13/25 02/13/25 02/13/25 Range/Units 12:12 12:27 13:22 WBC 7.1 (4.8-10.8) X10*3/uL RBC 3.92 L D (4.20-5.50) X10*6/uL Hgb 11.5 L (12.0-16.0) g/dl Hct 34.4 L (37.0-47.0) % MCV 87.8 (80.0-98.0) fL MCH 29.3 (27.0-33.0) pg MCHC 33.4 (31.0-35.0) g/dl RDW 14.6 (11.0-16.0) % Plt Count 167 D (160-400) X10*3/uL MPV 9.8 (9.4-12.3) fL Immature Gran % (Auto) 0.6 H (0.0-0.4) % Neut % (Auto) 66.7 (45-73) % Lymph % (Auto) 21.7 (20-40) % [place] % (Auto) 7.3 (2-11) % Eos % (Auto) 3.1 (0-4) % Baso % (Auto) 0.6 (0-2) % Lymph # (Auto) 1.6 (1.2-4.9) X10*3/uL [place] # (Auto) 0.5 (0.1-1.2) X10*3/uL Eos # (Auto) 0.2 (0.0-0.4) X10*3/uL Baso # (Auto) 0.0 (0.0-0.2) X10*3/uL Abs Immat Gran (auto) 0.04 H (0.00-0.03) X10*3/uL Absolute Neuts (auto) 4.8 (2.0-8.3) x10*3/uL Absolute Nucleated RBC 0.000 (0.0-0.012) X10*3/uL Nucleated RBC % (auto) 0.0 (0.0-0.2) /100WBC APTT 32.3 (26.0-36.8) SEC D-Dimer High Sensitivty 286 NG/ML Sodium 144 (135-145) mmol/L Potassium 4.6 (3.3-5.1) mmol/L Chloride 111 H (96-108) mmol/L Carbon Dioxide 25 (22-29) mmol/L Anion Gap 13 (12-20) BUN 18 H (9-16) mg/dL Creatinine 0.88 (0.5-1.4) mg/dL Estim Creat Clear Calc 60.9 Estimated GFR > 60 Random Glucose 104 (60-115) mg/dL Lactic Acid 1.3 (0.5-2.0) mmol/L Calcium 9.2 (8.4-10.2) mg/dL Magnesium 1.9 (1.6-2.6) mg/dL Total Bilirubin 0.5 (0.0-1.0) mg/dL AST 25 (5-31) U/L ALT 27 (0-31) U/L Alkaline Phosphatase 87 (39-117) U/L Troponin I High Sens 8.3 (<3.5-17.0) ng/L B-Natriuretic Peptide 463 H (<100) pg/mL Total Protein 6.9 (6.5-8.0) g/dL Albumin 3.9 (3.5-5.0) g/dL Lipase 24 (8-78) U/L Urine Color Yellow Urine Appearance Clear Urine pH 7.5 (5.0-9.0) Ur Specific [place] 1.015 (1.005-1.025) Urine Protein Negative (Neg-Trace) mg/dL Urine Glucose (UA) Negative (Negative) mg/dL Urine Ketones Negative (Negative) mg/dL Urine Blood Negative (Negative) Urine Nitrite Negative (Negative) Ur Leukocyte Esterase Negative (Negative) Urine RBC 0-2 (0-2) /HPF Urine WBC 0-5 (0-5) /HPF Ur Squamous Epith Cells 0-2 (0-2) /HPF Urine Bacteria None Seen (None Seen) Hyaline Casts 0-2 (0-2) /LPF Influenza Type A (PCR) NEGATIVE (Negative) Influenza Type B (PCR) NEGATIVE (Negative) RSV RNA Qual (PCR) NEGATIVE (Negative) SARS-CoV-2 RNA (RT-PCR) NEGATIVE (Negative) Independent Interpretation I performed an independent interpretation of an: EKG Interpretation: My independent interpretation patient's 12 EKG done on 02/13/2025 at 11:57 hours is as follows: Normal sinus rhythm with a rate of 65 with a occasional PVC, normal AK interval, QRS duration QTC interval, no ST segment elevation, no ST segment depression, no significant T-wave abnormalities. Compared to an EKG dated Jan 29 2023 at 12:57 hours, PVCs w are new otherwise no other acute changes. Radiology Impression Discussion of test interpretation with radiology: I have reviewed the radiologist's reading. Radiologist Impression: CT angio chest PE protocol IMPRESSION: No evidence of pulmonary emboli. Cardiomegaly, small bilateral pleural effusions, and probable mild pulmonary vascular congestion. Electronically signed by: Channing Farrar MD 02/13/2025 03:58 PM External Record Review External record reviewed: Office record Chronic Conditions Patient?s care impacted by: Hypertension Critical Care Time Critical Care Time Critical Care Time: Yes Total Critical Care Time: 35 Attestation: Critical Care: The patient was critically ill with a high probability of imminent or life threatening deterioration. I spent greater than 30 minutes of discontinuous time evaluating the patient,delivering critical care at the bedside, discussing and evaluating pertinent data with consultants. Critical care time does not include time spent performing separately billable procedures or teaching. Total time spent performing critical care was 35 minutes. Discharge Plan Discharge Patient Disposition: Admitted As Inpatient Print Language: Choose Not To Answer
--- NOTE | 2025-02-13 11:53 | ECG_ITS ---
Test Reason : SOB Blood Pressure : */* mmHG Vent. Rate : 65 BPM Atrial Rate : 65 BPM P-R Int : 150 ms QRS Dur : 78 ms QT Int : 438 ms P-R-T Axes : 41 -20 14 degrees QTcB Int : 455 ms Sinus rhythm with occasional Premature ventricular complexes Minimal voltage criteria for LVH, may be normal variant ( R in aVL ) Nonspecific ST abnormality Abnormal ECG When compared with ECG of 29-Jan-2023 12:57, Premature ventricular complexes are now Present Criteria for Septal infarct are no longer Present Nonspecific T wave abnormality no longer evident in Anterior leads Referred By: Jeffrey Coleman Electronically Signed By: CAROLYN DIA MD
[2025-02-13 12:18] LABS: MANUAL DIFF FLAG NO
[2025-02-13 12:21] LABS: Basophils Percent Auto 0.6 % (0-2); Eosinophils Absolute Auto 0.2 X10*3/uL (0.0-0.4); Eosinophils Percent Auto 3.1 % (0-4); Hematocrit 34.4 % (37.0-47.0); Hemoglobin 11.5 g/dl (12.0-16.0); Imm Gran Abs Auto 0.04 X10*3/uL (0.00-0.03); Imm Gran Pct Auto 0.6 % (0.0-0.4); Lymphocytes Absolute Auto 1.6 X10*3/uL (1.2-4.9); Lymphocytes Percent Auto 21.7 % (20-40); Mean Corpuscular HGB Conc 33.4 g/dl (31.0-35.0); Mean Corpuscular Hemoglobin 29.3 pg (27.0-33.0); Mean Corpuscular Volume 87.8 fL (80.0-98.0); Mean Platelet Volume 9.8 fL (9.4-12.3); Monocytes Absolute Auto 0.5 X10*3/uL (0.1-1.2); Monocytes Percent Auto 7.3 % (2-11); Neutrophils Absolute Auto 4.8 x10*3/uL (2.0-8.3); Neutrophils Percent Auto 66.7 % (45-73); Platelet Count 167 X10*3/uL (160-400); Red Blood Count 3.92 X10*6/uL (4.20-5.50); Red Cell Distribution Width 14.6 % (11.0-16.0); White Blood Count 7.1 X10*3/uL (4.8-10.8)
[2025-02-13 12:40] LABS: Appearance Urine Clear; Color Urine Yellow; Glucose Urine UA Negative (Negative); Leukocyte Esterase Urine Negative (Negative); Nitrite Urine Negative (Negative); PH 7.5 (5.0-9.0); Specific Gravity - Urine 1.015 (1.005-1.025); Urine Blood Negative (Negative); Urine Ketones Negative (Negative); Urine Protein Negative (Neg-Trace)
[2025-02-13 12:42] LABS: Bacteria Urine None Seen (None Seen); Hyaline Casts Urine 0-2 /LPF (0-2); RBC Urine 0-2 /HPF (0-2); Squamous Epithelial Cell Urine 0-2 /HPF (0-2); WBC Urine 0-5 /HPF (0-5)
[2025-02-13 12:42] LABS: Alanine Aminotransferase 27 U/L (0-31); Albumin Level 3.9 g/dL (3.5-5.0); Alkaline Phosphatase 87 U/L (39-117); Anion Gap 13 (12-20); Aspartate Amino Transferase 25 U/L (5-31); Bilirubin Total 0.5 mg/dL (0.0-1.0); Blood Urea Nitrogen 18 mg/dL (9-16); Calcium 9.2 mg/dL (8.4-10.2); Carbon Dioxide 25 mmol/L (22-29); Chloride 111 mmol/L (96-108); Creatinine Clr Calc Pharmacy 60.9; Estimated Glomerular Filt Rate > 60; Glucose Random 104 mg/dL (60-115); Lipase 24 U/L (8-78); Magnesium 1.9 mg/dL (1.6-2.6); Potassium 4.6 mmol/L (3.3-5.1); Sodium 144 mmol/L (135-145); Total Protein 6.9 g/dL (6.5-8.0)
[2025-02-13 12:49] LABS: B Type Natriuretic Peptide 463 pg/mL (<100); Troponin-I High Sensitivity 8.3 ng/L (<3.5-17.0)
[2025-02-13 12:58] LABS: Influenza A PCR NEGATIVE (Negative); Influenza B PCR NEGATIVE (Negative); Resp Syncy Virus RNA Qual PCR NEGATIVE (Negative); SARS COV2 PCR INHOUSE NEGATIVE (Negative)
[2025-02-13 13:37] LABS: D Dimer High Sensitivity 286 NG/ML
[2025-02-13 13:38] LABS: Partial Thromboplastin Time 32.3 SEC (26.0-36.8)
[2025-02-13 13:48] LABS: Lactic Acid 1.3 mmol/L (0.5-2.0)
[2025-02-13 14:27] VITALS: BP 180/84; PULSE 63; RESP 20; TEMP 36.7; O2SAT 96
[2025-02-13] MEDS: iohexoL 350 MG/ML 100 ML INFUS..BTL IV (15:45)
[2025-02-13 16:52] VITALS: BP 171/65; PULSE 75; RESP 17; TEMP 36.6; O2SAT 98
[2025-02-13] MEDS: Aspirin 81 MG TAB.CHEW 324 MG PO (16:54)
[2025-02-13] MEDS: Furosemide 20 MG/2 ML VIAL IVPUSH (16:54)
[2025-02-13 17:45] LABS: Troponin-I High Sensitivity 9.2 ng/L (<3.5-17.0)
--- NOTE | 2025-02-13 18:35 | PHA.MEDREC ---
Addendum entered by Nahed Sims RPh 02/13/25 20:04: MED REC REVIEWED Original Note: Pharmacy Consult ? Medication Reconciliation Pharmacy has completed the medication reconciliation. Spoke to patient to confirm med list. patient states she is no longer taking Amlodipine 2.5 mg, Chlorthalidone 25 mg, Escitalopram oxal 10 mg, Zofran 4 mg, Sertraline 100 mg( patient stopped on her own. says I'm no longer depressed ), Turmeric 400 mg and Zolpidem 5 mg. Patient had all her morning medications today.
[2025-02-13] MEDS: Albuterol Sulfate (0.083%) 2.5 MG/3 ML VIAL.NEB INHALE (20:52)
[2025-02-13 20:55] VITALS: PULSE 79; RESP 16; O2SAT 98
--- NOTE | 2025-02-13 20:57 | P.HPHOSP_ITS ---
History of Present Illness Date of Service: 02/13/25 Attending physician on admission: Tyesha Hicks Chief Complaint: Shortness of breath Mimi Menchaca is a 74 years old woman past medical history significant for hypertension presents to the emergency department complaining of 2 weeks' history of shortness on breath with exertion associated with dry cough, chest discomfort, nausea, wheezing and fatigue. She also reported suggestive fever but denies chills. She denied abdominal pain, diarrhea or vomiting. Patient denied acute urinary symptoms. She mentioned that the symptoms started while she was in a cruise I noted that people around her were also sick. She also complained of pitting edema to the lower extremities. Denied tobacco smoking, alcohol abuse or illicit drug use. She has normal history of congestive heart failure, CAD/myocardial infarction or diabetes. She was seen by Dr. Willams in 2021 for possible CHF evaluation. At that time he requested an echocardiogram and a stress test. He failed that patient possibly have diastolic CHF. The stress test showed normal myocardial perfusion with mild reversible apical defect, LVEF 62%. In the ED, she was found to have stable vital signs. Blood pressure has been elevated. Last blood pressure is 171/65. There is no tachycardia and oxygen is normal on room air. Blood workup showed no leukocytosis. Hemoglobin is 11.5 (it was 13.9 on November of this year) and hematocrit 34.4 MCV is 87.8. Platelets are normal. D-dimer is 286. There is no lactic acidosis. Urinalysis is normal. Viral testing for COVID-19, influenza and RSV is negative. Chest CTA with IV contrast showed no evidence of pulmonary embolism. It is showed cardiomegaly, probable mild pulmonary congestion and small bilateral pleural effusions. ECG showed normal sinus rhythm with occasional PVCs, LVH shortness and nonspecific ST changes. ED tx: Lasix 20 mg IV, aspirin 324 mg p.o. Review of Systems 2 Review of Systems: All 12 systems were reviewed and normal except as noted in HPI. [facility] Medical History (Updated 02/13/25 @ 21:27 by Tyesha Hicks MD) Obesity (BMI 30-39.9) Depression HTN (hypertension) Family History Father Myocardial infarct Mother No problems noted. Surgical History History of right knee surgery Social History Alcohol intake: current Alcohol intake frequency: 0-2 drinks per day Alcohol type: wine Patient Tobacco Use Status: Never used Tobacco Advance Directives: No Advance Directives Information Provided: Yes Meds Allergies Allergy/AdvReac Type Severity Reaction Status Date / Time No Known Allergies Allergy Verified 02/13/25 11:56 Active Medications: Current Medications Acetaminophen (Acetaminophen 325 Mg Tablet) 975 mg PO Q6H PRN PRN Reason: Pain, Mild 1-3,fever,headache Albuterol Sulfate (Albuterol Sulfate (0.083%) 2.5 Mg/3 Ml Vial.Neb) 2.5 mg INHALE RQ4H PRN PRN Reason: Wheezing Ascorbic Acid (Ascorbic Acid 500 Mg Tablet) 500 mg PO DAILY YAYO Buspirone HCl (Buspirone Hcl 10 Mg Tablet) 10 mg PO BID YAYO Calcium Carbonate (Calcium Carbonate 750 Mg Tab.Chew) 750 mg PO Q4H PRN PRN Reason: Heartburn Enoxaparin Sodium (Enoxaparin Sodium 40 Mg/0.4 Ml Syringe) 40 mg SUBCUT Q24H YAYO Guaifenesin/Dextromethorphan (Guaifenesin Dm 200/20/10 Ml 10 Ml Syrup) 10 ml PO Q6H PRN PRN Reason: Cough Losartan Potassium (Losartan Potassium 50 Mg Tablet) 100 mg PO DAILY YAYO; Protocol Magnesium Hydroxide (Milk Of Magnesia 30 Ml Oral.Susp) 30 ml PO DAILY PRN PRN Reason: Constipation Magnesium Oxide (Magnesium Oxide 400 Mg Tablet) 400 mg PO DAILY YAYO Melatonin (Melatonin 3 Mg Tablet) 6 mg PO BEDTIME PRN PRN Reason: Insomnia Multivitamins/Vitamin C (Multivitamin Tablet) 1 tab PO DAILY [facility] Sodium Chloride (0.9 % Sodium Chloride Flush 3 Ml Syringe) 3 ml IVFLUSH QSHIFT [facility] Home Medications ?Medication ?Instructions ?Recorded ?Confirmed ?Last Taken ?Type albuterol sulfate 90 mcg/actuation 2 puff inhalation Q6H PRN 02/13/25 02/13/25 Unknown History aerosol inhaler Shortness Of Breath Or Wheezing ascorbic acid (vitamin C) 500 mg 500 mg PO DAILY 02/13/25 02/13/25 02/13/25 History tablet (Vitamin C) buspirone 10 mg tablet 10 mg PO BID 02/13/25 02/13/25 02/13/25 History losartan 100 mg tablet 100 mg PO DAILY 02/13/25 02/13/25 02/13/25 History magnesium oxide 420 mg tablet 420 mg PO DAILY 02/13/25 02/13/25 02/13/25 History vitamin B complex 1 tab PO DAILY 02/13/25 02/13/25 02/13/25 History Physical Exam 2 Vital Signs and Narrative: Vital Signs: Last Vital Signs Temp 97.8 F 02/13/25 16:52 Pulse 79 02/13/25 20:55 Resp 16 02/13/25 20:55 BP 171/65 H 02/13/25 16:52 Pulse Ox 98 02/13/25 16:52 O2 Del Method Room Air 02/13/25 16:52 BMI result Body Mass Index 39.8 Constitutional - Awake and Alert, No apparent distress. Cooperative. Obese. Constantly coughing. HEENT - PER, EOMI Heart - RRR, No murmurs Lungs - Normal lung expansion, Normal respiratory effort, No respiratory distress. Tachypnea. Decreased breath sound at bases. Minimal end expiratory wheezing. Gastrointestinal - NT / ND; +BS; No rebound or guarding Extremities - Mild pitting edema to the lower extremities. Musculoskeletal - Normal inspection, normal ROM Skin - Warm/Dry Neurological - Alert & oriented x3. No focal weakness grossly noted. Normal speech. Psychological - Appropriate affect Results Labs 02/13/25 12:12 02/13/25 12:12 Labs: Laboratory Results - last 24 hr 02/13/25 02/13/25 02/13/25 12:12 12:27 13:22 MCV 87.8 MCH 29.3 MCHC 33.4 RDW 14.6 Plt Count 167 D MPV 9.8 Immature Gran % (Auto) 0.6 H Neut % (Auto) 66.7 Lymph % (Auto) 21.7 [place] % (Auto) 7.3 Eos % (Auto) 3.1 Baso % (Auto) 0.6 Lymph # (Auto) 1.6 [place] # (Auto) 0.5 Eos # (Auto) 0.2 Baso # (Auto) 0.0 Abs Immat Gran (auto) 0.04 H Absolute Neuts (auto) 4.8 Absolute Nucleated RBC 0.000 Nucleated RBC % (auto) 0.0 APTT 32.3 D-Dimer High Sensitivty 286 Anion Gap 13 Estim Creat Clear Calc 60.9 Estimated GFR > 60 Random Glucose 104 Lactic Acid 1.3 Calcium 9.2 Magnesium 1.9 Total Bilirubin 0.5 AST 25 ALT 27 Alkaline Phosphatase 87 Troponin I High Sens 8.3 B-Natriuretic Peptide 463 H Total Protein 6.9 Albumin 3.9 Lipase 24 Urine Color Yellow Urine Appearance Clear Urine pH 7.5 Ur Specific [place] 1.015 Urine Protein Negative Urine Glucose (UA) Negative Urine Ketones Negative Urine Blood Negative Urine Nitrite Negative Ur Leukocyte Esterase Negative Urine RBC 0-2 Urine WBC 0-5 Ur Squamous Epith Cells 0-2 Urine Bacteria None Seen Hyaline Casts 0-2 Influenza Type A (PCR) NEGATIVE Influenza Type B (PCR) NEGATIVE RSV RNA Qual (PCR) NEGATIVE SARS-CoV-2 RNA (RT-PCR) NEGATIVE 02/13/25 17:20 MCV MCH MCHC RDW Plt Count MPV Immature Gran % (Auto) Neut % (Auto) Lymph % (Auto) [place] % (Auto) Eos % (Auto) Baso % (Auto) Lymph # (Auto) [place] # (Auto) Eos # (Auto) Baso # (Auto) Abs Immat Gran (auto) Absolute Neuts (auto) Absolute Nucleated RBC Nucleated RBC % (auto) APTT D-Dimer High Sensitivty Anion Gap Estim Creat Clear Calc Estimated GFR Random Glucose Lactic Acid Calcium Magnesium Total Bilirubin AST ALT Alkaline Phosphatase Troponin I High Sens 9.2 B-Natriuretic Peptide Total Protein Albumin Lipase Urine Color Urine Appearance Urine pH Ur Specific [place] Urine Protein Urine Glucose (UA) Urine Ketones Urine Blood Urine Nitrite Ur Leukocyte Esterase Urine RBC Urine WBC Ur Squamous Epith Cells Urine Bacteria Hyaline Casts Influenza Type A (PCR) Influenza Type B (PCR) RSV RNA Qual (PCR) SARS-CoV-2 RNA (RT-PCR) Imaging Radiologist's Impressions: Impressions Chest CTA 02/13/25 15:31 IMPRESSION: No evidence of pulmonary emboli. Cardiomegaly, small bilateral pleural effusions, and probable mild pulmonary vascular congestion. Electronically signed by: Channing Farrar MD 02/13/2025 03:58 PM EDT Assessment and Plan (1) Dyspnea on exertion: Status: Acute (2) Congestive heart failure, unspecified: Qualifiers: Heart failure type: diastolic Heart failure chronicity: acute on chronic Qualified Code(s): I50.33 - Acute on chronic diastolic (congestive) heart failure Status: Acute (3) Essential hypertension: Status: Acute (4) Anemia: Qualifiers: Anemia type: unspecified type Qualified Code(s): D64.9 - Anemia, unspecified Status: Acute Plan Mimi Menchaca is a 74 y/o woman admitted with: * Shortness on breath likely secondary to acute on chronic CHF/pulmonary congestion associated with small bilateral pleural effusions. Troponin negative x2. ?Upper respiratory tract infection. (people around her with similar symptoms). Admit to hospitalist service. Telemetry. Pulse oximetry. Supplemental O2 to keep O2 sats above 90%. -will cover with doxycycline 100 mg IV twice daily. Respiratory panel. Bronchodilator therapy and antitussives as needed. Check TTE. Check lipid panel. Cardiology consult. * Anemia, Hgb 13.9 --> 11.5 (over 3 months), elevated BUN. Anemia workup. Start Protonix 40 mg IV twice daily. Will obtain Gastroenterology consult. * Essential hypertension. Continue losartan. * Morbid obesity, BMI 39.8 kg/m2; class 2. Weight loss. DVT prophylaxis: SCDs Code status: Full Patient will need hospitalization for at least 2 midnights for possible acute CHF with IV diuresis, supplemental oxygen as needed, close monitoring of vital signs and evaluation by subspecialty. Quality Stroke Does the patient have a stroke diagnosis?: No VTE Prior VTE?: No VTE Risk Level:: Medical - moderate - high VTE Device Contraindication: Treatment Not Indicated VTE Drug Contraindication: N/A - Med Ordered
[2025-02-13 21:30] VITALS: BP 157/80; PULSE 84; RESP 18; TEMP 36.6; O2SAT 97
[2025-02-13] MEDS: methylPREDNISolone Sod Succ 40 MG/ML VIAL IVPUSH (22:01)
[2025-02-13] MEDS: busPIRone HCl 10 MG TABLET PO (22:02)
[2025-02-13] MEDS: Pantoprazole Sodium 40 MG/10 ML VIAL IVPUSH (22:02)
[2025-02-13] MEDS: guaiFENesin DM 200/20/10 ML 10 ML SYRUP PO (22:03)
[2025-02-13] MEDS: Melatonin 3 MG TABLET 6 MG PO (22:04)
[2025-02-13] MEDS: Doxycycline Hyclate 100 MG in 0.9 % Sodium Chloride 250 ML 166.67 MG IV (22:05)
--- NOTE | 2025-02-13 23:24 | PC.NURSE ---
Pt resting comfortably on hospital bed. Pt medicated per NOV. Call prasad within reach and pt understands to call for assistance. Pt able to independently stand and pivot to commode without issue.
[2025-02-14] VITALS (10 sets, daily range): BP systolic 126–153; BP diastolic 63–75; PULSE 50–91; RESP 16–19; TEMP 36.4–36.6; O2SAT 94–97; BMI 41.0
[2025-02-14] MEDS: Acetaminophen 325 MG TABLET 975 MG PO ×2 (05:11→13:08)
[2025-02-14] MEDS: guaiFENesin DM 200/20/10 ML 10 ML SYRUP PO (05:13)
[2025-02-14] MEDS: Albuterol Sulfate (0.083%) 2.5 MG/3 ML VIAL.NEB INHALE ×2 (05:32→21:39)
--- NOTE | 2025-02-14 07:00 | CA_ITS ---
Transthoracic Echocardiogram Patient (Last, First, Middle): Mimi Menchaca, Gender: Female Date of : 1950 Age: 74 Procedure Date: 02/14/2025 Procedure Type: Transthoracic Echocardiogram [place] [facility] [place]: 154.94 cm Weight: 95.26 kg BSA: 1.93 m2 Heart Rate: bpm BP: 131 / 65 mmHg Wrapper Hands Sprayer: SB Referring MD: Tyesha Hicks MD Accounting Office Manager: Mauricio Thorne MD Symptoms: SOB, bilat pleural effusions, vasc congestion Study Quality: Fair ECG Rhythm: Frequent ventricular premature beats Conclusions: - 1. Hyperdynamic LV ejection fraction of greater than 70% with elevated filling pressures 2. Mildly dilated left atrium 3. Normal cardiac valvular Dopplers 4. Normal RV systolic pressure with mildly elevated right atrial pressures 5. Mildly dilated ascending aorta 6. Trivial pericardial effusion Findings Procedure Information Contrast agent, definity, is being given per protocol without apparent complications. Left Ventricle Normal left ventricular cavity size. There is normal left ventricular wall thickness. The left ventricular systolic function is hyperdynamic. The visually estimated ejection fraction is >70%. Spectral Doppler is indicative of an impaired relaxation filling pattern. Elevated filling pressures. E/E prime ratio is >15, consistent with elevated filling pressures. Right Ventricle Normal right ventricular cavity size and systolic function. Atria The left atrium is mildly dilated. Interatrial shunt cannot be excluded. The right atrium was not well visualized. Aortic Valve The aortic valve was not well visualized. There is no aortic valve stenosis. There is no aortic valve regurgitation. Mitral Valve Likely normal mitral valve structure and function. There is trace mitral valve regurgitation. There is no mitral valve stenosis. Pulmonic Valve The pulmonic valve was not well visualized. Tricuspid Valve Likely normal tricuspid valve structure and function. There is trace tricuspid valve regurgitation. The right ventricular systolic pressure is normal. The right ventricular systolic pressure is 24 mmHg. Mildly elevated right atrial pressure. There is no evidence of pulmonary hypertension. Great Vessels The pulmonary artery was not well visualized. There is mild dilatation of the ascending aorta measuring 3.70 cm. Venous The inferior vena cava is normal in size and collapses less than 50% with inspiration. Pericardium/Pleural There is a trivial loculated pericardial effusion overlying the left ventricle. Measurements 2D Linear Measurements IVSd: 0.86 0.6-0.9/0.6-1.0 cm LVIDd: 5.31 3.9-5.3/4.2-5.9 cm LVIDd Index: 2.75 2.4-3.2/2.2-3.1 cm/m2 LVIDs: 2.91 2.0-3.6 cm LVPWd: 0.94 0.7-1.1 cm LA Diam: 4.10 2.7-3.8/3.0-4.0 cm LAIDs Index: 2.12 1.5-2.3 cm/m2 LV Mass: 218.41 67-162/88-224 g LV Mass Index: 113.16 43-95/49-115 g/m2 LVOT Diam: 2.10 3.0+(-)1.3 cm 2D Systolic Function EF 4C: 60.60 >55% EF 2C: 79.10 >55% EF BiP: 71.90 >55% Mitral Valve MV Pk E: 1.09 MV PK A: 1.03 MV Decel Time: 156.00 E/A: 1.10 E'Lateral: 6.74 E'Medial: 5.87 E/E' Med: 18.60 E/E' Lat: 16.20 PHT: 46.00 MVA PHT: 4.78 Decel Woodward: 7.02 Aortic Valve AoV Pk Tyson: 1.76 AoV Pk Grad: 12.00 GRAYSON: 2.83 LVOT LVOT Pk Tyson: 1.55 LVOT Mn Tyson: 1.16 LVOT VTI: 0.33 LVOT Pk Grad: 10.00 LVOT Mn Grad: 6.00 LVOT Diam: 2.10 LVOT Area: 3.46 Diastolic Function MV Pk E: 1.09 MV Pk A: 1.03 E/A: 1.10 E'Medial: 5.87 E/E' Med: 18.60 E' Laterial: 6.74 E/E' Lat: 16.20 Right Ventricle TVS' Tyson: 22.00 Tricuspid Valve TR Pk Tyson: 2.00 TR Pk Grad: 16.00 RA Press: 8.00 RVSP: 24.00 Great Vessels Aorta Sinus of Valsalva: 3.10 2.0-3.5 cm Ao Asc: 3.70 2.1-3.4 cm Pulmonary Valve PV Pk Tyson: 1.10 Peak PV Grad: 5.00 Updated in Other Vendor System with Status of Final Mauricio Thorne MD electronically signed on 02/14/2025 12:51:59 PM with status of Final
[2025-02-14 07:03] LABS: MANUAL DIFF FLAG NO
--- NOTE | 2025-02-14 07:11 | PM.GICN ---
History of Present Illness Data of Consult Service Date: 02/14/25 Requesting physician: Tyesha Hicks Primary Care Provider: MD RASHMI Muñoz Reason for consult: anemia 74 YF with hypertension [place] [facility] [place] [facility] [place] with 2 week history of shortness on breath with exertion associated with dry cough, chest discomfort, nausea, wheezing and fatigue. She noted subjective fever and lower ext edema and denied chills, abdominal pain, diarrhea, vomiting or acute urinary symptoms. She mentioned that her symptoms started while she was in a cruise and noted that people around her were also sick. Pt denied tobacco smoking, alcohol abuse or illicit drug use. She has a history of congestive heart failure, CAD/myocardial infarction or diabetes. She was seen by Dr. Willams in 2021 for possible CHF evaluation. At that time he requested an echocardiogram and a stress test. He failed that patient possibly have diastolic CHF. The stress test showed normal myocardial perfusion with mild reversible apical defect, LVEF 62%. In the ED, she was found to have stable vital signs. Blood pressure was elevated. Last blood pressure is 171/65. Labs showed no leukocytosis. Hemoglobin is 11.5 (it was 13.9 on November of this year) and hematocrit 34.4 MCV is 87.8. Platelets are normal. D-dimer is 286. There is no lactic acidosis. Urinalysis is normal. Viral testing for COVID-19, influenza and RSV is negative. Chest CTA with IV contrast showed no evidence of pulmonary embolism. It is showed cardiomegaly, probable mild pulmonary congestion and small bilateral pleural effusions. ECG showed normal sinus rhythm with occasional PVCs, LVH shortness and nonspecific ST changes. ED tx: Lasix 20 mg IV, aspirin 324 mg p.o. [facility] Past Medical History Medical History (Updated 02/13/25 @ 21:27 by Tyesha Hicks MD) Obesity (BMI 30-39.9) Depression HTN (hypertension) Family History Family History Father Myocardial infarct Mother No problems noted. Surgical History Surgical History History of right knee surgery Social History Social History Alcohol intake: current Alcohol intake frequency: 0-2 drinks per day Alcohol type: wine Patient Tobacco Use Status: Never used Tobacco Advance Directives: No Advance Directives Information Provided: Yes Nutrition Risks: No Nutritional Risk Meds Allergies Allergy/AdvReac Type Severity Reaction Status Date / Time No Known Allergies Allergy Verified 02/13/25 11:56 Active Medications: Current Medications Acetaminophen (Acetaminophen 325 Mg Tablet) 975 mg PO Q6H PRN PRN Reason: Pain, Mild 1-3,fever,headache Last Admin: 02/14/25 05:11 Dose: 975 mg Albuterol Sulfate (Albuterol Sulfate (0.083%) 2.5 Mg/3 Ml Vial.Neb) 2.5 mg INHALE RQ4H PRN PRN Reason: Wheezing Last Admin: 02/14/25 05:32 Dose: 2.5 mg Ascorbic Acid (Ascorbic Acid 500 Mg Tablet) 500 mg PO DAILY [facility] Buspirone HCl (Buspirone Hcl 10 Mg Tablet) 10 mg PO BID [facility] Last Admin: 02/13/25 22:02 Dose: 10 mg Calcium Carbonate (Calcium Carbonate 750 Mg Tab.Chew) 750 mg PO Q4H PRN PRN Reason: Heartburn Enoxaparin Sodium (Enoxaparin Sodium 40 Mg/0.4 Ml Syringe) 40 mg SUBCUT Q24H [facility] Furosemide (Furosemide 40 Mg/4 Ml Vial) 20 mg IVPUSH BID@0900,1800 [facility]; Protocol Guaifenesin/Dextromethorphan (Guaifenesin Dm 200/20/10 Ml 10 Ml Syrup) 10 ml PO Q6H PRN PRN Reason: Cough Last Admin: 02/14/25 05:13 Dose: 10 ml Doxycycline Hyclate 100 mg/ (Sodium Chloride) 250 mls @ 166.67 mls/hr IV Q12H [facility] Last Infusion: 02/14/25 00:16 Dose: Infused Losartan Potassium (Losartan Potassium 50 Mg Tablet) 100 mg PO DAILY [facility]; Protocol Magnesium Hydroxide (Milk Of Magnesia 30 Ml Oral.Susp) 30 ml PO DAILY PRN PRN Reason: Constipation Magnesium Oxide (Magnesium Oxide 400 Mg Tablet) 400 mg PO DAILY [facility] Melatonin (Melatonin 3 Mg Tablet) 6 mg PO BEDTIME PRN PRN Reason: Insomnia Last Admin: 02/13/25 22:04 Dose: 6 mg Multivitamins/Vitamin C (Multivitamin Tablet) 1 tab PO DAILY [facility] Pantoprazole Sodium (Pantoprazole Sodium 40 Mg/10 Ml Vial) 40 mg IVPUSH BID@0630,1630 [facility] Last Admin: 02/13/25 22:02 Dose: 40 mg Sodium Chloride (0.9 % Sodium Chloride Flush 3 Ml Syringe) 3 ml IVFLUSH QSHIFT [facility] Last Admin: 02/13/25 23:32 Dose: Not Given Home Medications ?Medication ?Instructions ?Recorded ?Confirmed ?Last Taken ?Type albuterol sulfate 90 mcg/actuation 2 puff inhalation Q6H PRN 02/13/25 02/13/25 Unknown History aerosol inhaler Shortness Of Breath Or Wheezing ascorbic acid (vitamin C) 500 mg 500 mg PO DAILY 02/13/25 02/13/25 02/13/25 History tablet (Vitamin C) buspirone 10 mg tablet 10 mg PO BID 02/13/25 02/13/25 02/13/25 History losartan 100 mg tablet 100 mg PO DAILY 02/13/25 02/13/25 02/13/25 History magnesium oxide 420 mg tablet 420 mg PO DAILY 02/13/25 02/13/25 02/13/25 History vitamin B complex 1 tab PO DAILY 02/13/25 02/13/25 02/13/25 History Physical Exam Vital Signs: Vital Signs: Last Vital Signs Temp 97.7 F 02/14/25 04:13 Pulse 67 02/14/25 05:35 Resp 18 02/14/25 05:35 BP 126/74 02/14/25 04:13 Pulse Ox 96 02/14/25 04:13 O2 Del Method Room Air 02/14/25 04:13 BMI result Body Mass Index 39.8 Results Labs 02/13/25 12:12 02/13/25 12:12 Labs: Short CBC 02/13/25 Range/Units 12:12 WBC 7.1 (4.8-10.8) X10*3/uL Hgb 11.5 L (12.0-16.0) g/dl Hct 34.4 L (37.0-47.0) % Plt Count 167 D (160-400) X10*3/uL BMP 02/13/25 12:12 Sodium 144 Potassium 4.6 Chloride 111 H Carbon Dioxide 25 BUN 18 H Creatinine 0.88 Calcium 9.2 Liver Function 02/13/25 Range/Units 12:12 Total Bilirubin 0.5 (0.0-1.0) mg/dL AST 25 (5-31) U/L ALT 27 (0-31) U/L Alkaline Phosphatase 87 (39-117) U/L Albumin 3.9 (3.5-5.0) g/dL Urine 02/13/25 Range/Units 12:27 Urine Color Yellow Urine Appearance Clear Urine pH 7.5 (5.0-9.0) Ur Specific Coleman 1.015 (1.005-1.025) Urine Protein Negative (Neg-Trace) mg/dL Urine Glucose (UA) Negative (Negative) mg/dL Assessment and Plan (1) Anemia: Qualifiers: Anemia type: unspecified type Qualified Code(s): D64.9 - Anemia, unspecified Status: Acute Procedures Date of Service Date of Service: 02/14/25
[2025-02-14 07:16] LABS: Immature Retic Fraction 13.4 % (3.0-15.9); Retic HGB Equivalent 31.5 pg (30.0-35.0); Reticulocyte Percent 3.2 % (0.5-1.8); Reticulocytes Absolute 0.139 X10*6/uL (0.026-0.095)
[2025-02-14 07:18] LABS: Basophils Percent Auto 0.1 % (0-2); Hematocrit 38.3 % (37.0-47.0); Hemoglobin 12.4 g/dl (12.0-16.0); Imm Gran Abs Auto 0.06 X10*3/uL (0.00-0.03); Imm Gran Pct Auto 0.8 % (0.0-0.4); Lymphocytes Absolute Auto 0.8 X10*3/uL (1.2-4.9); Lymphocytes Percent Auto 10.4 % (20-40); Mean Corpuscular HGB Conc 32.4 g/dl (31.0-35.0); Mean Corpuscular Hemoglobin 28.3 pg (27.0-33.0); Mean Corpuscular Volume 87.4 fL (80.0-98.0); Mean Platelet Volume 10.7 fL (9.4-12.3); Monocytes Absolute Auto 0.1 X10*3/uL (0.1-1.2); Monocytes Percent Auto 1.1 % (2-11); Neutrophils Absolute Auto 6.4 x10*3/uL (2.0-8.3); Neutrophils Percent Auto 87.6 % (45-73); Platelet Count 197 X10*3/uL (160-400); Red Blood Count 4.38 X10*6/uL (4.20-5.50); Red Cell Distribution Width 14.4 % (11.0-16.0); White Blood Count 7.3 X10*3/uL (4.8-10.8)
[2025-02-14 07:26] LABS: Blood Urea Nitrogen 17 mg/dL (9-16); Cholesterol 189 mg/dL (<200); Creatinine Clr Calc Pharmacy 62.4; Estimated Glomerular Filt Rate > 60; Glucose Random 244 mg/dL (60-115); HDL Cholesterol 74 mg/dL (>40); Iron 26 mcg/dL (30-160); LDL Cholesterol Calculated 103 mg/dL (<100); Magnesium 1.8 mg/dL (1.6-2.6); Percent Iron Saturation 8 % (15-50); Total Iron Binding Capacity 323 mcg/dL (228-428); Triglycerides 63 mg/dL (<150); Unsaturated Iron Binding 297 ug/dL
[2025-02-14 07:33] LABS: Anion Gap 16 (12-20); Carbon Dioxide 20 mmol/L (22-29); Chloride 107 mmol/L (96-108); Potassium 3.4 mmol/L (3.3-5.1); Sodium 140 mmol/L (135-145)
[2025-02-14 07:36] LABS: Reflex LDLD? No
[2025-02-14 07:48] LABS: Ferritin 60 ng/mL (10-250)
[2025-02-14 08:01] LABS: Folate 11.8 ng/mL (> or = 4.0); Vitamin B12 1295 pg/mL (200-900)
[2025-02-14] MEDS: Doxycycline Hyclate 100 MG in 0.9 % Sodium Chloride 250 ML 166.67 MG IV (08:28)
[2025-02-14] MEDS: Pantoprazole Sodium 40 MG/10 ML VIAL IVPUSH (08:32)
[2025-02-14] MEDS: 0.9 % Sodium Chloride Flush 3 ML SYRINGE IVFLUSH ×3 (08:32→21:35)
[2025-02-14] MEDS: Furosemide 40 MG/4 ML VIAL 20 MG IVPUSH (08:33)
[2025-02-14] MEDS: Enoxaparin Sodium 40 MG/0.4 ML SYRINGE SUBCUT (08:35)
[2025-02-14 08:37] LABS: Free T4 (Free Thyroxine) 1.03 ng/dL (0.71-1.85)
[2025-02-14] MEDS: busPIRone HCl 10 MG TABLET PO ×2 (08:37→21:35)
[2025-02-14] MEDS: Ascorbic Acid 500 MG TABLET PO (08:37)
[2025-02-14] MEDS: Losartan Potassium 50 MG TABLET 100 MG PO (08:37)
[2025-02-14] MEDS: Multivitamin TABLET 1 TAB PO (08:38)
[2025-02-14] MEDS: Magnesium Oxide 400 MG TABLET PO (08:38)
--- NOTE | 2025-02-14 08:48 | MHC.CM.PN ---
CM met with Patient at bedside, in the ED, and addressed IMM with her, providing Patient with the original and a copy will be placed on the chart. 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 Home/self care is the goal and CM has initiated and will follow for dc planning. PCP is Dr. Desiree Ryder and Patient's car is here for transport to home at dc.
--- NOTE | 2025-02-14 09:39 | HO.PM.IMPN ---
Subjective Subjective Date of Service: 02/14/25 Interval History: c/o exertional dyspnea + orthopnea, ongoing cough not hypoxic Review of Systems Review of Systems: Yes all other systems are reviewed and are negative Physical Exam Vital Signs: Vital Signs: Last Vital Signs Temp 97.8 F 02/14/25 08:56 Pulse 91 02/14/25 08:56 Resp 18 02/14/25 08:56 BP 131/65 02/14/25 08:56 Pulse Ox 97 02/14/25 08:56 O2 Del Method Room Air 02/14/25 08:56 BMI result Body Mass Index 39.8 Gen: in no acute distress HEENT: sclera anicteric, moist mucus membranes Neck: supple, JVD present Lungs: clear to auscultation bilaterally Heart: regular rate and rhythm, no murmurs Abd: soft, non-tender, non-distended Ext: 1+ bilateral pitting edema Skin: warm/well-perfused Neuro: alert and oriented x3, no focal findings Psych: appropriate affect Objective Data Active Medications Acetaminophen (Acetaminophen 325 Mg Tablet) 975 mg PO Q6H PRN PRN Reason: Pain, Mild 1-3,fever,headache Last Admin: 02/14/25 05:11 Dose: 975 mg Documented By: CHRISTINA Albuterol Sulfate (Albuterol Sulfate (0.083%) 2.5 Mg/3 Ml Vial.Neb) 2.5 mg INHALE RQ4H PRN PRN Reason: Wheezing Last Admin: 02/14/25 05:32 Dose: 2.5 mg Documented By: JEREMIAH Ascorbic Acid (Ascorbic Acid 500 Mg Tablet) 500 mg PO DAILY [facility] Last Admin: 02/14/25 08:37 Dose: 500 mg Documented By: NADEGE Buspirone HCl (Buspirone Hcl 10 Mg Tablet) 10 mg PO BID [facility] Last Admin: 02/14/25 08:37 Dose: 10 mg Documented By: NADEGE Calcium Carbonate (Calcium Carbonate 750 Mg Tab.Chew) 750 mg PO Q4H PRN PRN Reason: Heartburn Enoxaparin Sodium (Enoxaparin Sodium 40 Mg/0.4 Ml Syringe) 40 mg SUBCUT Q24H [facility] Last Admin: 02/14/25 08:35 Dose: 40 mg Documented By: NADEGE Furosemide (Furosemide 40 Mg/4 Ml Vial) 20 mg IVPUSH BID@0900,1800 [facility]; Protocol Last Admin: 02/14/25 08:33 Dose: 20 mg Documented By: NADEGE Guaifenesin/Dextromethorphan (Guaifenesin Dm 200/20/10 Ml 10 Ml Syrup) 10 ml PO Q6H PRN PRN Reason: Cough Last Admin: 02/14/25 05:13 Dose: 10 ml Documented By: CHRISTINA Doxycycline Hyclate 100 mg/ (Sodium Chloride) 250 mls @ 166.67 mls/hr IV Q12H [facility] Last Admin: 02/14/25 08:28 Dose: 166.67 mls/hr Documented By: NADEGE Losartan Potassium (Losartan Potassium 50 Mg Tablet) 100 mg PO DAILY [facility]; Protocol Last Admin: 02/14/25 08:37 Dose: 100 mg Documented By: NADEGE Magnesium Hydroxide (Milk Of Magnesia 30 Ml Oral.Susp) 30 ml PO DAILY PRN PRN Reason: Constipation Magnesium Oxide (Magnesium Oxide 400 Mg Tablet) 400 mg PO DAILY [facility] Last Admin: 02/14/25 08:38 Dose: 400 mg Documented By: NADEGE Melatonin (Melatonin 3 Mg Tablet) 6 mg PO BEDTIME PRN PRN Reason: Insomnia Last Admin: 02/13/25 22:04 Dose: 6 mg Documented By: CHRISTINA Multivitamins/Vitamin C (Multivitamin Tablet) 1 tab PO DAILY [facility] Last Admin: 02/14/25 08:38 Dose: 1 tab Documented By: NADEGE Pantoprazole Sodium (Pantoprazole Sodium 40 Mg/10 Ml Vial) 40 mg IVPUSH BID@0630,1630 [facility] Last Admin: 02/14/25 08:32 Dose: 40 mg Documented By: NADEGE Sodium Chloride (0.9 % Sodium Chloride Flush 3 Ml Syringe) 3 ml IVFLUSH QSHIFT [facility] Last Admin: 02/14/25 08:32 Dose: 3 ml Documented By: NADEGE Labs 02/14/25 06:34 02/14/25 06:34 Labs: Laboratory Results - last 24 hr 02/13/25 02/13/25 02/13/25 12:12 12:27 13:22 MCV 87.8 MCH 29.3 MCHC 33.4 RDW 14.6 Plt Count 167 D MPV 9.8 Immature Gran % (Auto) 0.6 H Neut % (Auto) 66.7 Lymph % (Auto) 21.7 [place] % (Auto) 7.3 Eos % (Auto) 3.1 Baso % (Auto) 0.6 Lymph # (Auto) 1.6 [place] # (Auto) 0.5 Eos # (Auto) 0.2 Baso # (Auto) 0.0 Abs Immat Gran (auto) 0.04 H Absolute Neuts (auto) 4.8 Absolute Nucleated RBC 0.000 Nucleated RBC % (auto) 0.0 Absolute Retic Percent Retic Immature Retic Fraction Retic Hgb Equivalent APTT 32.3 D-Dimer High Sensitivty 286 Anion Gap 13 Estim Creat Clear Calc 60.9 Estimated GFR > 60 Random Glucose 104 Lactic Acid 1.3 Calcium 9.2 Magnesium 1.9 Iron TIBC % Saturation Unsat Iron Binding Ferritin Total Bilirubin 0.5 AST 25 ALT 27 Alkaline Phosphatase 87 Troponin I High Sens 8.3 B-Natriuretic Peptide 463 H Total Protein 6.9 Albumin 3.9 Triglycerides Cholesterol LDL Cholesterol, Calc HDL Cholesterol Lipase 24 Vitamin B12 Folate TSH 4.50 H Free T4 Urine Color Yellow Urine Appearance Clear Urine pH 7.5 Ur Specific [place] 1.015 Urine Protein Negative Urine Glucose (UA) Negative Urine Ketones Negative Urine Blood Negative Urine Nitrite Negative Ur Leukocyte Esterase Negative Urine RBC 0-2 Urine WBC 0-5 Ur Squamous Epith Cells 0-2 Urine Bacteria None Seen Hyaline Casts 0-2 Influenza Type A (PCR) NEGATIVE Influenza Type B (PCR) NEGATIVE RSV RNA Qual (PCR) NEGATIVE SARS-CoV-2 RNA (RT-PCR) NEGATIVE 02/13/25 02/14/25 02/14/25 17:20 06:34 06:35 MCV 87.4 MCH 28.3 MCHC 32.4 RDW 14.4 Plt Count 197 MPV 10.7 Immature Gran % (Auto) 0.8 H Neut % (Auto) 87.6 H Lymph % (Auto) 10.4 L [place] % (Auto) 1.1 L Eos % (Auto) 0.0 Baso % (Auto) 0.1 Lymph # (Auto) 0.8 L [place] # (Auto) 0.1 Eos # (Auto) 0.0 Baso # (Auto) 0.0 Abs Immat Gran (auto) 0.06 H Absolute Neuts (auto) 6.4 Absolute Nucleated RBC 0.000 Nucleated RBC % (auto) 0.0 Absolute Retic 0.139 H Percent Retic 3.2 H Immature Retic Fraction 13.4 Retic Hgb Equivalent 31.5 APTT D-Dimer High Sensitivty Anion Gap 16 Estim Creat Clear Calc 62.4 Estimated GFR > 60 Random Glucose 244 H Lactic Acid Calcium 9.0 Magnesium 1.8 Iron 26 L TIBC 323 % Saturation 8 L Unsat Iron Binding 297 Ferritin 60 Total Bilirubin AST ALT Alkaline Phosphatase Troponin I High Sens 9.2 B-Natriuretic Peptide Total Protein Albumin Triglycerides 63 Cholesterol 189 LDL Cholesterol, Calc 103 H HDL Cholesterol 74 Lipase Vitamin B12 1295 H Folate 11.8 TSH Free T4 1.03 Urine Color Urine Appearance Urine pH Ur Specific [place] Urine Protein Urine Glucose (UA) Urine Ketones Urine Blood Urine Nitrite Ur Leukocyte Esterase Urine RBC Urine WBC Ur Squamous Epith Cells Urine Bacteria Hyaline Casts Influenza Type A (PCR) Influenza Type B (PCR) RSV RNA Qual (PCR) SARS-CoV-2 RNA (RT-PCR) Assessment and Plan (1) Congestive heart failure, unspecified: Status: Acute Assessment and Plan: d2 for 74yo F with HTN presenting with 2 wk of progressive exertional dyspnea + orthopnea with dry cough and fatigue along with leg edema. Admitted for suspected CHF exacerbation CHF exacerbation, prior EF normal - TTE pending, continue IV diuresis with furosemide, monitor I/O + weights, lytes, BNP - continue losartan - Cardiology consult - normal stress test 01/10/22 bronchitis/URI - d/c doxycycline, RPP pending, symptom relief with Tessalon + guaifenesin/DM hyperglycemia - A1c pending WESLY, mild - replete Fe, FOBT pending, on empiric PPI HTN - continue losartan mood disorder - continue buspirone VTE ppx - enoxaparin dispo - eventual home with VNA In my clinical judgment, the patient requires continued inpatient hospitalization for the following reasons: IV diuresis Total time managing care of this patient today: 40 minutes. Quality Stroke Does the patient have a stroke diagnosis?: No VTE Prior VTE?: No VTE Risk Level:: Medical - moderate - high VTE Device Contraindication: Treatment Not Indicated VTE Drug Contraindication: N/A - Med Ordered
[2025-02-14 10:41] LABS: Adenovirus PCR Not Detected (Not Detect.); Bordetella parapertussis PCR Not Detected (Not Detect.); Bordetella pertussis PCR Not Detected (Not Detect.); Chlamydia pneumoniae PCR Not Detected (Not Detect.); Coronavirus 229E PCR Not Detected (Not Detect.); Coronavirus HKU1 PCR Not Detected (Not Detect.); Coronavirus NL63 PCR Not Detected (Not Detect.); Coronavirus OC43 PCR Not Detected (Not Detect.); Human metapneumovirus PCR Not Detected (Not Detect.); Influenza A PCR Not Detected (Not Detect.); Influenza B PCR Not Detected (Not Detect.); Mycoplasma pneumoniae PCR Not Detected (Not Detect.); Parainfluenza 1 PCR Not Detected (Not Detect.); Parainfluenza 2 PCR Not Detected (Not Detect.); Parainfluenza 3 PCR Not Detected (Not Detect.); Parainfluenza 4 PCR Not Detected (Not Detect.); RSV PCR Not Detected (Not Detect.); Rhino/Enterovirus PCR Not Detected (Not Detect.)
[2025-02-14 10:44] LABS: Estimated Average Glucose 114 mg/dL; Hemoglobin A1C 123.9205 umol/L; Hemoglobin A1c % 5.6 % (<6.0); Total Hemoglobin (HGBA1C) 3295.1578 umol/L
[2025-02-14 10:50] LABS: Influenza A H1 PCR Not Detected (Not Detect.); Influenza A H1-2009 PCR Not Detected (Not Detect.); Influenza A H3 PCR Not Detected (Not Detect.); SARS-CoV-2 PCR Not Detected (Not Detect.)
--- NOTE | 2025-02-14 12:40 | PM.CNCAR ---
History of Present Illness History of Present Illness Date of Service: 02/14/25 Requesting physician: Juan Jose Jarrell Consult reason: congestive heart failure Chief complaint: Shortness of breath Narrative: I was consulted to see Mimi duenas and retired nurse who came to the hospital with progressive shortness of breath. Patient is a 74-year-old female with prior history of hypertension who presented to the hospital with progressive shortness of breath. Patient says that she was on the trip on a cruise ship away and then she started noticing some shortness of breath. She came back home and thought she might have caught a virus as she was also coughing. However she progressively continue get short of breath with exertion and also started noticing leg swelling and noticed that she was getting short of breath laying down and she had to sit up to sleep. Yesterday she said her symptoms got severely worse and she does not to be checked out. She had a prior history of similar episode couple years ago at which time her BNP was elevated. However subsequent workup has shown no evidence of coronary disease by a stress echocardiogram. She had no follow-up. She has no cardiac arrhythmias. She is also noted that a blood pressure is elevated during this time. She was getting very anxious and had restarted taking her BuSpar as she thought she might be getting anxious. She came in by imaging appears to have pulmonary edema as well as BNP findings consistent with decompensated congestive heart failure. He has been given Lasix although intake and output chart happening not monitored. She feels better but not completely back to baseline. Blood pressure is better at current point time. Echocardiogram done at bedside shows normal LV ejection fraction but elevated filling pressures with elevated right atrial pressures as well. Troponin is within normal limits. EKGs does not show any significant ischemia Review of Systems Constitutional: Constitutional: Reports no additional constitutional complaints Eyes: Eyes: Reports no additional eye complaints Cardiovascular: Cardiovascular: Denies chest pain, Reports leg edema, Denies lightheadedness, Denies Loss of Consciousness, Denies radiating jaw, neck or arm pain, Denies palpitations, Reports dyspnea on exertion and Reports orthopnea Respiratory: Respiratory: Reports cough and Reports dyspnea on exertion Gastrointestinal: Gastrointestinal: Reports no additional gastrointestinal complaints Genitourinary: Genitourinary: Reports no additional female genitourinary complaints Integumentary/Breasts: Skin/Breast: Reports system reviewed and no additional complaints, except as docu Endocrine: Endocrine: Denies palpitations [facility] Past Medical History Medical History Obesity (BMI 30-39.9) Depression HTN (hypertension) Family History Family History Father Myocardial infarct Mother No problems noted. Surgical History Surgical History History of right knee surgery Social History Social History Housing: House Do you presently have visiting nurse or other home services: Yes Alcohol intake: current Alcohol intake frequency: 0-2 drinks per day Alcohol type: wine Patient Tobacco Use Status: Never used Tobacco e-Cigarette/Vaping Use: Never Used Second Hand Smoke Exposure: No service: No Meds Allergies Allergy/AdvReac Type Severity Reaction Status Date / Time No Known Allergies Allergy Verified 02/13/25 11:56 Active Medications: Current Medications Acetaminophen (Acetaminophen 325 Mg Tablet) 975 mg PO Q6H PRN PRN Reason: Pain, Mild 1-3,fever,headache Last Admin: 02/14/25 05:11 Dose: 975 mg Albuterol Sulfate (Albuterol Sulfate (0.083%) 2.5 Mg/3 Ml Vial.Neb) 2.5 mg INHALE RQ4H PRN PRN Reason: Wheezing Last Admin: 02/14/25 05:32 Dose: 2.5 mg Ascorbic Acid (Ascorbic Acid 500 Mg Tablet) 500 mg PO DAILY [facility] Last Admin: 02/14/25 08:37 Dose: 500 mg Benzonatate (Benzonatate 100 Mg Capsule) 200 mg PO TID PRN PRN Reason: Cough Buspirone HCl (Buspirone Hcl 10 Mg Tablet) 10 mg PO BID [facility] Last Admin: 02/14/25 08:37 Dose: 10 mg Calcium Carbonate (Calcium Carbonate 750 Mg Tab.Chew) 750 mg PO Q4H PRN PRN Reason: Heartburn Enoxaparin Sodium (Enoxaparin Sodium 40 Mg/0.4 Ml Syringe) 40 mg SUBCUT Q24H [facility] Last Admin: 02/14/25 08:35 Dose: 40 mg Ferrous Sulfate (Ferrous Sulfate 324 Mg Tablet.) 324 mg PO Q48H [facility] Furosemide (Furosemide 40 Mg/4 Ml Vial) 20 mg IVPUSH BID@0900,1800 [facility]; Protocol Last Admin: 02/14/25 08:33 Dose: 20 mg Guaifenesin/Dextromethorphan (Guaifenesin Dm 100/10/5 Ml 5 Ml Syrup) 5 ml PO Q4H PRN PRN Reason: Cough not relieved by Tessalon Losartan Potassium (Losartan Potassium 50 Mg Tablet) 100 mg PO DAILY [facility]; Protocol Last Admin: 02/14/25 08:37 Dose: 100 mg Magnesium Hydroxide (Milk Of Magnesia 30 Ml Oral.Susp) 30 ml PO DAILY PRN PRN Reason: Constipation Magnesium Oxide (Magnesium Oxide 400 Mg Tablet) 400 mg PO DAILY [facility] Last Admin: 02/14/25 08:38 Dose: 400 mg Melatonin (Melatonin 3 Mg Tablet) 6 mg PO BEDTIME PRN PRN Reason: Insomnia Last Admin: 02/13/25 22:04 Dose: 6 mg Multivitamins/Vitamin C (Multivitamin Tablet) 1 tab PO DAILY [facility] Last Admin: 02/14/25 08:38 Dose: 1 tab Pantoprazole Sodium (Pantoprazole Sodium 40 Mg/10 Ml Vial) 40 mg IVPUSH BID@0630,1630 [facility] Last Admin: 02/14/25 08:32 Dose: 40 mg Sodium Chloride (0.9 % Sodium Chloride Flush 3 Ml Syringe) 3 ml IVFLUSH QSHIFT [facility] Last Admin: 02/14/25 08:32 Dose: 3 ml Home Medications ?Medication ?Instructions ?Recorded ?Confirmed ?Last Taken ?Type albuterol sulfate 90 mcg/actuation 2 puff inhalation Q6H PRN 02/13/25 02/13/25 Unknown History aerosol inhaler Shortness Of Breath Or Wheezing ascorbic acid (vitamin C) 500 mg 500 mg PO DAILY 02/13/25 02/13/25 02/13/25 History tablet (Vitamin C) buspirone 10 mg tablet 10 mg PO BID 02/13/25 02/13/25 02/13/25 History losartan 100 mg tablet 100 mg PO DAILY 02/13/25 02/13/25 02/13/25 History magnesium oxide 420 mg tablet 420 mg PO DAILY 02/13/25 02/13/25 02/13/25 History vitamin B complex 1 tab PO DAILY 02/13/25 02/13/25 02/13/25 History Physical Exam Vital Signs: Vital Signs: Last Vital Signs Temp 97.8 F 02/14/25 08:56 Pulse 91 02/14/25 08:56 Resp 18 02/14/25 08:56 BP 131/65 02/14/25 08:56 Pulse Ox 97 02/14/25 08:56 O2 Del Method Room Air 02/14/25 08:56 BMI result Body Mass Index 39.8 Const: General: cooperative, comfortable, no acute distress, alert, awake and Physically active Nutritional Appearance: obese Orientation/consciousness: patient oriented x3 Limitations: no limitations HEENT: Head: Yes normocephalic and Yes atraumatic Neck: Neck: Yes trachea midline, Yes supple and Yes JVD Resp: Effort & Inspection: normal respiratory effort Auscultation: clear to auscultation bilaterally Cardio: Jugular venous distension: JVD Palpation: normal PMI Rate: regular rate Rhythm: regular rhythm Heart sounds: S1 normal heart sound present, S2 normal heart sound present, no click, no gallops and no murmurs GI: Auscultation: normal bowel sounds Skin: General skin exam: no rashes or lesions noted Neuro: General: patient oriented x3 and no focal motor deficits Extrem: General: No clubbing, No cyanosis and Yes edema Objective Labs and Meds 02/14/25 06:34 02/14/25 06:34 Lab results: Laboratory Results - last 24 hr 02/13/25 02/13/25 02/13/25 12:12 12:27 13:22 WBC RBC Hgb Hct MCV MCH MCHC RDW Plt Count MPV Immature Gran % (Auto) Neut % (Auto) Lymph % (Auto) [place] % (Auto) Eos % (Auto) Baso % (Auto) Lymph # (Auto) [place] # (Auto) Eos # (Auto) Baso # (Auto) Abs Immat Gran (auto) Absolute Neuts (auto) Absolute Nucleated RBC Nucleated RBC % (auto) Absolute Retic Percent Retic Immature Retic Fraction Retic Hgb Equivalent APTT 32.3 D-Dimer High Sensitivty 286 Sodium 144 Potassium 4.6 Chloride 111 H Carbon Dioxide 25 Anion Gap 13 BUN 18 H Creatinine 0.88 Estim Creat Clear Calc 60.9 Estimated GFR > 60 Random Glucose 104 Estimat Average Glucose Hemoglobin A1c % Lactic Acid 1.3 Calcium 9.2 Magnesium 1.9 Iron TIBC % Saturation Unsat Iron Binding Ferritin Total Bilirubin 0.5 AST 25 ALT 27 Alkaline Phosphatase 87 Troponin I High Sens 8.3 B-Natriuretic Peptide 463 H Total Protein 6.9 Albumin 3.9 Triglycerides Cholesterol LDL Cholesterol, Calc HDL Cholesterol Lipase 24 Vitamin B12 Folate TSH 4.50 H Free T4 Urine Color Yellow Urine Appearance Clear Urine pH 7.5 Ur Specific [place] 1.015 Urine Protein Negative Urine Glucose (UA) Negative Urine Ketones Negative Urine Blood Negative Urine Nitrite Negative Ur Leukocyte Esterase Negative Urine RBC 0-2 Urine WBC 0-5 Ur Squamous Epith Cells 0-2 Urine Bacteria None Seen Hyaline Casts 0-2 Respiratory Panel Plata Adenovirus (Rapid PCR) B.pert (TEM-PCR) B.parapertussis DNA PCR C. pneumoniae DNA (PCR) Coronavirus OC43 (PCR) Coronavirus HKU1 (PCR) Coronavirus 229E (PCR) Coronavirus NL63 (PCR) Human Metapneumovir PCR Influenza A (RT-PCR) Influenza A (H1) PCR Influ A (H1/09) PCR Influenza A (H3) PCR Influenza Type A (PCR) NEGATIVE Influenza B (RT-PCR) Influenza Type B (PCR) NEGATIVE M. pneumoniae (PCR) Parainfluenza 1 (PCR) Parainfluenza 2 (PCR) Parainfluenza 3 (PCR) Parainfluenza 4 (PCR) RSV (PCR) RSV RNA Qual (PCR) NEGATIVE Entero/Rhino (PCR) SARS-CoV-2 RNA (RT-PCR) NEGATIVE 02/13/25 02/13/25 02/14/25 17:20 21:33 06:34 WBC 7.3 RBC 4.38 Hgb 12.4 Hct 38.3 MCV 87.4 MCH 28.3 MCHC 32.4 RDW 14.4 Plt Count 197 MPV 10.7 Immature Gran % (Auto) 0.8 H Neut % (Auto) 87.6 H Lymph % (Auto) 10.4 L [place] % (Auto) 1.1 L Eos % (Auto) 0.0 Baso % (Auto) 0.1 Lymph # (Auto) 0.8 L [place] # (Auto) 0.1 Eos # (Auto) 0.0 Baso # (Auto) 0.0 Abs Immat Gran (auto) 0.06 H Absolute Neuts (auto) 6.4 Absolute Nucleated RBC 0.000 Nucleated RBC % (auto) 0.0 Absolute Retic Percent Retic Immature Retic Fraction Retic Hgb Equivalent APTT D-Dimer High Sensitivty Sodium 140 Potassium 3.4 D Chloride 107 Carbon Dioxide 20 L Anion Gap 16 BUN 17 H Creatinine 0.86 Estim Creat Clear Calc 62.4 Estimated GFR > 60 Random Glucose 244 H Estimat Average Glucose 114 Hemoglobin A1c % 5.6 Lactic Acid Calcium 9.0 Magnesium 1.8 Iron 26 L TIBC 323 % Saturation 8 L Unsat Iron Binding 297 Ferritin 60 Total Bilirubin AST ALT Alkaline Phosphatase Troponin I High Sens 9.2 B-Natriuretic Peptide Total Protein Albumin Triglycerides 63 Cholesterol 189 LDL Cholesterol, Calc 103 H HDL Cholesterol 74 Lipase Vitamin B12 1295 H Folate 11.8 TSH Free T4 1.03 Urine Color Urine Appearance Urine pH Ur Specific [place] Urine Protein Urine Glucose (UA) Urine Ketones Urine Blood Urine Nitrite Ur Leukocyte Esterase Urine RBC Urine WBC Ur Squamous Epith Cells Urine Bacteria Hyaline Casts Respiratory Panel Plata See Note Adenovirus (Rapid PCR) Not Detected B.pert (TEM-PCR) Not Detected B.parapertussis DNA PCR Not Detected C. pneumoniae DNA (PCR) Not Detected Coronavirus OC43 (PCR) Not Detected Coronavirus HKU1 (PCR) Not Detected Coronavirus 229E (PCR) Not Detected Coronavirus NL63 (PCR) Not Detected Human Metapneumovir PCR Not Detected Influenza A (RT-PCR) Not Detected Influenza A (H1) PCR Not Detected Influ A (H1/09) PCR Not Detected Influenza A (H3) PCR Not Detected Influenza Type A (PCR) Influenza B (RT-PCR) Not Detected Influenza Type B (PCR) M. pneumoniae (PCR) Not Detected Parainfluenza 1 (PCR) Not Detected Parainfluenza 2 (PCR) Not Detected Parainfluenza 3 (PCR) Not Detected Parainfluenza 4 (PCR) Not Detected RSV (PCR) Not Detected RSV RNA Qual (PCR) Entero/Rhino (PCR) Not Detected SARS-CoV-2 RNA (RT-PCR) Not Detected 02/14/25 06:35 WBC RBC Hgb Hct MCV MCH MCHC RDW Plt Count MPV Immature Gran % (Auto) Neut % (Auto) Lymph % (Auto) [place] % (Auto) Eos % (Auto) Baso % (Auto) Lymph # (Auto) [place] # (Auto) Eos # (Auto) Baso # (Auto) Abs Immat Gran (auto) Absolute Neuts (auto) Absolute Nucleated RBC Nucleated RBC % (auto) Absolute Retic 0.139 H Percent Retic 3.2 H Immature Retic Fraction 13.4 Retic Hgb Equivalent 31.5 APTT D-Dimer High Sensitivty Sodium Potassium Chloride Carbon Dioxide Anion Gap BUN Creatinine Estim Creat Clear Calc Estimated GFR Random Glucose Estimat Average Glucose Hemoglobin A1c % Lactic Acid Calcium Magnesium Iron TIBC % Saturation Unsat Iron Binding Ferritin Total Bilirubin AST ALT Alkaline Phosphatase Troponin I High Sens B-Natriuretic Peptide Total Protein Albumin Triglycerides Cholesterol LDL Cholesterol, Calc HDL Cholesterol Lipase Vitamin B12 Folate TSH Free T4 Urine Color Urine Appearance Urine pH Ur Specific [place] Urine Protein Urine Glucose (UA) Urine Ketones Urine Blood Urine Nitrite Ur Leukocyte Esterase Urine RBC Urine WBC Ur Squamous Epith Cells Urine Bacteria Hyaline Casts Respiratory Panel Plata Adenovirus (Rapid PCR) B.pert (TEM-PCR) B.parapertussis DNA PCR C. pneumoniae DNA (PCR) Coronavirus OC43 (PCR) Coronavirus HKU1 (PCR) Coronavirus 229E (PCR) Coronavirus NL63 (PCR) Human Metapneumovir PCR Influenza A (RT-PCR) Influenza A (H1) PCR Influ A (H1/09) PCR Influenza A (H3) PCR Influenza Type A (PCR) Influenza B (RT-PCR) Influenza Type B (PCR) M. pneumoniae (PCR) Parainfluenza 1 (PCR) Parainfluenza 2 (PCR) Parainfluenza 3 (PCR) Parainfluenza 4 (PCR) RSV (PCR) RSV RNA Qual (PCR) Entero/Rhino (PCR) SARS-CoV-2 RNA (RT-PCR) Imaging Radiologist's impression: Impressions Chest CTA 02/13/25 15:31 IMPRESSION: No evidence of pulmonary emboli. Cardiomegaly, small bilateral pleural effusions, and probable mild pulmonary vascular congestion. Electronically signed by: Channing Farrar MD 02/13/2025 03:58 PM EDT Assessment and Plan (1) Decompensated heart failure: Status: Acute Decompensated congestive heart failure in this elderly woman with longstanding history of hypertension probably most likely related to hypertensive heart disease. Clinically appears to have improved but continues to have fluid overload. Continue IV diuresis with Lasix as prescribed. Strict intake and output chart needs to be monitor. Continue monitor BNP and BNP. Would also add Jardiance 10 mg to her regimen. Continue current antihypertensive therapy. Will eventually require workup for ischemia as well will require sleep study as an outpatient. Will follow with you Procedures Date of Service Date of Service: 02/14/25
[2025-02-14] MEDS: guaiFENesin DM 100/10/5 ML 5 ML SYRUP PO ×2 (13:08→21:34)
[2025-02-14] MEDS: Ferrous Sulfate 324 MG TABLET.DR PO (13:08)
[2025-02-14] MEDS: Empagliflozin 10 MG TABLET PO (16:29)
[2025-02-14] MEDS: Benzonatate 100 MG CAPSULE 200 MG PO (17:00)
[2025-02-14] MEDS: Furosemide 40 MG/4 ML VIAL IVPUSH (17:47)
[2025-02-14] MEDS: Melatonin 3 MG TABLET 6 MG PO (23:43)
[2025-02-15] VITALS (8 sets, daily range): BP systolic 113–152; BP diastolic 55–81; PULSE 52–74; RESP 16–20; TEMP 36.4–36.9; O2SAT 95–99
[2025-02-15] MEDS: Omeprazole 20 MG CAPSULE.DR PO (05:27)
[2025-02-15 08:16] LABS: Mean Corpuscular HGB Conc 33.3 g/dl (31.0-35.0); Mean Corpuscular Hemoglobin 29.1 pg (27.0-33.0); Mean Corpuscular Volume 87.2 fL (80.0-98.0); Mean Platelet Volume 10.3 fL (9.4-12.3); Platelet Count 214 X10*3/uL (160-400); Red Blood Count 4.13 X10*6/uL (4.20-5.50); Red Cell Distribution Width 14.7 % (11.0-16.0); White Blood Count 9.1 X10*3/uL (4.8-10.8)
[2025-02-15 08:34] LABS: Anion Gap 13 (12-20); Blood Urea Nitrogen 28 mg/dL (9-16); Carbon Dioxide 24 mmol/L (22-29); Chloride 109 mmol/L (96-108); Estimated Glomerular Filt Rate 53; Glucose Random 104 mg/dL (60-115); Magnesium 2.1 mg/dL (1.6-2.6); Potassium 4.1 mmol/L (3.3-5.1); Sodium 142 mmol/L (135-145)
[2025-02-15 08:49] LABS: B Type Natriuretic Peptide 253 pg/mL (<100)
[2025-02-15] MEDS: Ascorbic Acid 500 MG TABLET PO (09:03)
[2025-02-15] MEDS: Losartan Potassium 50 MG TABLET 100 MG PO (09:03)
[2025-02-15] MEDS: 0.9 % Sodium Chloride Flush 3 ML SYRINGE IVFLUSH ×3 (09:03→21:18)
[2025-02-15] MEDS: Multivitamin TABLET 1 TAB PO (09:03)
[2025-02-15] MEDS: Magnesium Oxide 400 MG TABLET PO (09:03)
[2025-02-15] MEDS: busPIRone HCl 10 MG TABLET PO ×2 (09:03→21:16)
[2025-02-15] MEDS: Furosemide 40 MG/4 ML VIAL IVPUSH (09:03)
[2025-02-15] MEDS: Empagliflozin 10 MG TABLET PO (09:03)
[2025-02-15] MEDS: Enoxaparin Sodium 40 MG/0.4 ML SYRINGE SUBCUT (09:04)
[2025-02-15] MEDS: Benzonatate 100 MG CAPSULE 200 MG PO ×2 (09:09→17:09)
--- NOTE | 2025-02-15 10:53 | PM.PNCARD ---
Subjective Subjective Date of Service: 02/15/25 Principal diagnosis: CHF, hypertension. Interval history: Patient's echocardiogram shows normal LV ejection fraction with elevated filling pressure elevated right atrial pressures. Diuresing well. Says shortness of breath is improved. However she said today after getting Lasix she got lightheaded. Checking blood pressure bedside showed drop in his blood pressure although subsequently orthostatic shows elevated blood pressure without orthostasis. Noted frequent PVCs. No chest pain. Review of Systems Constitutional: Reports no additional constitutional complaints Reports system reviewed and no additional complaints, except as documented Cardiovascular: Denies chest pain, Denies leg edema, Reports lightheadedness, Denies palpitations and Reports dyspnea on exertion Respiratory: Reports cough and Reports dyspnea on exertion Gastrointestinal: Reports no additional gastrointestinal complaints Musculoskeletal: Reports no additional musculoskeletal complaints Reports system reviewed and no additional complaints, except as documented Endocrine: Reports no additional endocrine complaints and Denies palpitations Physical Exam Vital Signs: Last Vital Signs Temp 97.5 F 02/15/25 07:11 Pulse 74 02/15/25 10:25 Resp 20 02/15/25 07:11 BP 152/70 H 02/15/25 10:25 Pulse Ox 99 02/15/25 07:11 O2 Del Method Room Air 02/15/25 07:11 BMI result Body Mass Index 41.0 Const General: cooperative, comfortable, no acute distress, alert, awake and Physically active Nutritional Appearance: obese Orientation/consciousness: patient oriented x3 Limitations: no limitations HEENT Head: Yes normocephalic and Yes atraumatic Neck Neck: Yes trachea midline, Yes supple and Yes JVD Resp Effort & Inspection: normal respiratory effort Auscultation: clear to auscultation bilaterally Cardio Jugular venous distension: JVD Palpation: normal PMI Rate: regular rate Rhythm: regular rhythm Heart sounds: S1 normal heart sound present, S2 normal heart sound present, no click, no gallops and no murmurs GI Auscultation: normal bowel sounds Skin General skin exam: no rashes or lesions noted Neuro General: patient oriented x3 and no focal motor deficits Extrem General: No clubbing, No cyanosis and Yes edema Objective Labs and Meds 02/15/25 07:29 02/15/25 07:29 Lab results: Laboratory Results - last 24 hr 02/15/25 07:29 WBC 9.1 RBC 4.13 L Hgb 12.0 Hct 36.0 L MCV 87.2 MCH 29.1 MCHC 33.3 RDW 14.7 Plt Count 214 MPV 10.3 Absolute Nucleated RBC 0.000 Nucleated RBC % (auto) 0.0 Sodium 142 Potassium 4.1 D Chloride 109 H Carbon Dioxide 24 Anion Gap 13 BUN 28 H Creatinine 1.03 Estim Creat Clear Calc 53.0 Estimated GFR 53 Random Glucose 104 Calcium 9.0 Magnesium 2.1 B-Natriuretic Peptide 253 H Progress Note: A&P Assessment and plan (1) Decompensated heart failure: Status: Acute Assessment and Plan: Decompensated congestive heart failure with preserved LV ejection fraction. Etiology is unclear. She has elevated troponin which most likely related to decompensated congestive heart failure. Will continue IV diuresis although she developed lightheadedness with Lasix. Switch her to bumetanide 0.5 mg b.i.d.. Continue Jardiance therapy. Hold off on losartan therapy for tomorrow. Ambulate as tolerated. Will need ischemic workup once stabilized with a cardiac catheterization. Will also need sleep study to evaluate for sleep apnea. Other causes of infiltrative heart disease may need to be considered as well. Will follow with you Time Spent With Patient Time: Total time managing care of this patient today ____ minutes. Progress Note: Quality Stroke Does the patient have a stroke diagnosis?: No Procedures Date of Service Date of Service: 02/15/25
[2025-02-15 10:55] LABS: OBS Int Ctl Valid YES; OBS1 NEGATIVE (NEGATIVE)
--- NOTE | 2025-02-15 15:18 | HO.PM.IMPN ---
Subjective Subjective Date of Service: 02/15/25 Interval History: Notes dizziness after medications. Breathing still minimally improved Review of Systems Denies chest pain Admits shortness of breath Denies nausea vomiting diarrhea Denies fever chills Physical Exam Vital Signs: Vital Signs: Last Vital Signs Temp 98.4 F 02/15/25 11:09 Pulse 74 02/15/25 10:25 Resp 20 02/15/25 07:11 BP 152/70 H 02/15/25 10:25 Pulse Ox 97 02/15/25 11:09 O2 Del Method Room Air 02/15/25 11:09 BMI result Body Mass Index 41.0 Const: Other: Awake alert no acute distress Resp: Other: Clear to auscultation bilaterally. Diminished at bases with scattered crackles Cardio: Other: No S4; positive S1-S2; no S3 murmurs rubs or gallops GI: Other: Soft nontender nondistended normoactive bowel sounds Extrem: Other: Bilateral edema Objective Data Active Medications Acetaminophen (Acetaminophen 325 Mg Tablet) 975 mg PO Q6H PRN PRN Reason: Pain, Mild 1-3,fever,headache Last Admin: 02/14/25 13:08 Dose: 975 mg Documented By: TYREL Albuterol Sulfate (Albuterol Sulfate (0.083%) 2.5 Mg/3 Ml Vial.Neb) 2.5 mg INHALE RQ4H PRN PRN Reason: Wheezing Last Admin: 02/14/25 21:39 Dose: 2.5 mg Documented By: CASSIE Ascorbic Acid (Ascorbic Acid 500 Mg Tablet) 500 mg PO DAILY [facility] Last Admin: 02/15/25 09:03 Dose: 500 mg Documented By: BERNY Benzonatate (Benzonatate 100 Mg Capsule) 200 mg PO TID PRN PRN Reason: Cough Last Admin: 02/15/25 09:09 Dose: 200 mg Documented By: BERNY Bumetanide (Bumetanide 1 Mg/4 Ml Vial) 0.5 mg IVPUSH BID@0900,1700 [facility]; Protocol Buspirone HCl (Buspirone Hcl 10 Mg Tablet) 10 mg PO BID [facility] Last Admin: 02/15/25 09:03 Dose: 10 mg Documented By: BERNY Calcium Carbonate (Calcium Carbonate 750 Mg Tab.Chew) 750 mg PO Q4H PRN PRN Reason: Heartburn Empagliflozin (Empagliflozin 10 Mg Tablet) 10 mg PO DAILY [facility] Last Admin: 02/15/25 09:03 Dose: 10 mg Documented By: BERNY Enoxaparin Sodium (Enoxaparin Sodium 40 Mg/0.4 Ml Syringe) 40 mg SUBCUT Q24H [facility] Last Admin: 02/15/25 09:04 Dose: 40 mg Documented By: BERNY Ferrous Sulfate (Ferrous Sulfate 324 Mg Tablet.) 324 mg PO Q48H [facility] Last Admin: 02/14/25 13:08 Dose: 324 mg Documented By: TYREL Guaifenesin/Dextromethorphan (Guaifenesin Dm 100/10/5 Ml 5 Ml Syrup) 5 ml PO Q4H PRN PRN Reason: Cough not relieved by Tessalon Last Admin: 02/14/25 21:34 Dose: 5 ml Documented By: CHIDI Losartan Potassium (Losartan Potassium 50 Mg Tablet) 100 mg PO DAILY [facility]; Protocol Last Admin: 02/15/25 11:05 Dose: Not Given Documented By: BERNY Non-Admin Reason: Hold morning dose per Dr. Thorne Magnesium Hydroxide (Milk Of Magnesia 30 Ml Oral.Susp) 30 ml PO DAILY PRN PRN Reason: Constipation Magnesium Oxide (Magnesium Oxide 400 Mg Tablet) 400 mg PO DAILY [facility] Last Admin: 02/15/25 09:03 Dose: 400 mg Documented By: BERNY Melatonin (Melatonin 3 Mg Tablet) 6 mg PO BEDTIME PRN PRN Reason: Insomnia Last Admin: 02/14/25 23:43 Dose: 6 mg Documented By: CHIDI Multivitamins/Vitamin C (Multivitamin Tablet) 1 tab PO DAILY [facility] Last Admin: 02/15/25 09:03 Dose: 1 tab Documented By: BERNY Omeprazole (Omeprazole 20 Mg Capsule.) 20 mg PO DAILY@0630 [facility] Last Admin: 02/15/25 05:27 Dose: 20 mg Documented By: CHIDI Sodium Chloride (0.9 % Sodium Chloride Flush 3 Ml Syringe) 3 ml IVFLUSH QSHIFT [facility] Last Admin: 02/15/25 09:03 Dose: 3 ml Documented By: BERNY Labs 02/15/25 07:29 02/15/25 07:29 Labs: Laboratory Results - last 24 hr 02/15/25 02/15/25 07:29 10:30 MCV 87.2 MCH 29.1 MCHC 33.3 RDW 14.7 Plt Count 214 MPV 10.3 Absolute Nucleated RBC 0.000 Nucleated RBC % (auto) 0.0 Anion Gap 13 Estim Creat Clear Calc 53.0 Estimated GFR 53 Random Glucose 104 Calcium 9.0 Magnesium 2.1 B-Natriuretic Peptide 253 H Stool Occult Blood NEGATIVE Microbiology Microbiology Results: Microbiology 02/13/25 13:32 Blood Culture - Preliminary Blood - Venous No growth after 24 hours. 02/13/25 13:22 Blood Culture - Preliminary Blood - Venous No growth after 24 hours. Assessment and Plan (1) Congestive heart failure, unspecified: Status: Acute Assessment and Plan: 74yo F with HTN presenting with 2 wk of progressive exertional dyspnea + orthopnea with dry cough and fatigue along with leg edema. Admitted for suspected CHF exacerbation 1.HFpEF -LV function preserved -switch to Bumex IV -dizziness not supported by orthostatics and ambulation -hold losartan today -follow renals/divalents 2.Bronchitis/URI -symptomatic treatment 3.HTN - hold losartan -orthostatics normal -treat as clinically appropriate Enoxaparin Full Code dispo - eventual home with VNA In my clinical judgment, the patient requires continued inpatient hospitalization for the following reasons: IV diuresis (2) Decompensated heart failure: Status: Acute (3) (HFpEF) heart failure with preserved ejection fraction: Status: Acute Quality Stroke Does the patient have a stroke diagnosis?: No VTE Prior VTE?: No VTE Risk Level:: Medical - moderate - high VTE Device Contraindication: Treatment Not Indicated VTE Drug Contraindication: N/A - Med Ordered
[2025-02-15] MEDS: Bumetanide 1 MG/4 ML VIAL 0.5 MG IVPUSH (16:37)
[2025-02-15] MEDS: Melatonin 3 MG TABLET 6 MG PO (21:17)
[2025-02-16] MEDS: Omeprazole 20 MG CAPSULE.DR PO (05:27)
[2025-02-16 06:48] LABS: MANUAL DIFF FLAG NO
[2025-02-16 07:04] LABS: Basophils Absolute Auto 0.1 X10*3/uL (0.0-0.2); Basophils Percent Auto 0.9 % (0-2); Eosinophils Absolute Auto 0.2 X10*3/uL (0.0-0.4); Eosinophils Percent Auto 2.1 % (0-4); Hematocrit 40.1 % (37.0-47.0); Hemoglobin 13.3 g/dl (12.0-16.0); Imm Gran Abs Auto 0.03 X10*3/uL (0.00-0.03); Imm Gran Pct Auto 0.3 % (0.0-0.4); Lymphocytes Absolute Auto 2.4 X10*3/uL (1.2-4.9); Lymphocytes Percent Auto 26.5 % (20-40); Mean Corpuscular HGB Conc 33.2 g/dl (31.0-35.0); Mean Corpuscular Hemoglobin 28.7 pg (27.0-33.0); Mean Corpuscular Volume 86.6 fL (80.0-98.0); Monocytes Absolute Auto 0.9 X10*3/uL (0.1-1.2); Monocytes Percent Auto 9.8 % (2-11); Neutrophils Absolute Auto 5.6 x10*3/uL (2.0-8.3); Neutrophils Percent Auto 60.4 % (45-73); Platelet Count 245 X10*3/uL (160-400); Red Blood Count 4.63 X10*6/uL (4.20-5.50); Red Cell Distribution Width 14.7 % (11.0-16.0); White Blood Count 9.2 X10*3/uL (4.8-10.8)
[2025-02-16 07:12] LABS: Alanine Aminotransferase 20 U/L (0-31); Albumin Level 3.9 g/dL (3.5-5.0); Alkaline Phosphatase 83 U/L (39-117); Anion Gap 12 (12-20); Aspartate Amino Transferase 16 U/L (5-31); B Type Natriuretic Peptide 79 pg/mL (<100); Bilirubin Total 0.4 mg/dL (0.0-1.0); Blood Urea Nitrogen 27 mg/dL (9-16); Calcium 9.3 mg/dL (8.4-10.2); Carbon Dioxide 27 mmol/L (22-29); Chloride 105 mmol/L (96-108); Creatinine Clr Calc Pharmacy 54.6; Estimated Glomerular Filt Rate 55; Glucose Fasting 108 mg/dL (60-99); Potassium 4.4 mmol/L (3.3-5.1); Sodium 140 mmol/L (135-145); Total Protein 7.2 g/dL (6.5-8.0)
[2025-02-16 07:39] VITALS: BP 129/77; PULSE 62; RESP 18; TEMP 36.1; O2SAT 96
--- NOTE | 2025-02-16 08:36 | P.PNCA_ITS ---
Subjective Subjective Date of Service: 02/16/25 Principal diagnosis: CHF, hypertension. Interval history: Patient is feeling better. Blood pressure is stable. No lightheadedness. Tolerated bumetanide much better. Denies palpitations. BNP is normalized. Diuresed about 3.6 L overnight Review of Systems Review of Systems Yes all other systems are reviewed and are negative Physical Exam Vital Signs: Last Vital Signs Temp 97.0 F 02/16/25 07:39 Pulse 62 02/16/25 07:39 Resp 18 02/16/25 07:39 BP 129/77 02/16/25 07:39 Pulse Ox 96 02/16/25 07:39 O2 Del Method Room Air 02/16/25 07:39 BMI result Body Mass Index 41.0 Const General: cooperative, comfortable, no acute distress, alert, awake and Physically active Nutritional Appearance: obese Orientation/consciousness: patient oriented x3 Limitations: no limitations HEENT Head: Yes normocephalic and Yes atraumatic Neck Neck: Yes trachea midline, Yes supple and Yes no JVD Resp Effort & Inspection: normal respiratory effort Auscultation: clear to auscultation bilaterally Cardio Jugular venous distension: no JVD Palpation: normal PMI Rate: regular rate Rhythm: regular rhythm Heart sounds: S1 normal heart sound present, S2 normal heart sound present, no click, no gallops and no murmurs GI Auscultation: normal bowel sounds Skin General skin exam: no rashes or lesions noted Neuro General: patient oriented x3 and no focal motor deficits Extrem General: No clubbing, No cyanosis and Yes edema Objective Labs and Meds 02/16/25 06:29 02/16/25 06:29 Lab results: Laboratory Results - last 24 hr 02/15/25 02/15/25 02/16/25 07:29 10:30 06:29 WBC 9.2 RBC 4.63 Hgb 13.3 Hct 40.1 MCV 86.6 MCH 28.7 MCHC 33.2 RDW 14.7 Plt Count 245 MPV 10.0 Immature Gran % (Auto) 0.3 Neut % (Auto) 60.4 Lymph % (Auto) 26.5 [place] % (Auto) 9.8 Eos % (Auto) 2.1 Baso % (Auto) 0.9 Lymph # (Auto) 2.4 [place] # (Auto) 0.9 Eos # (Auto) 0.2 Baso # (Auto) 0.1 Abs Immat Gran (auto) 0.03 Absolute Neuts (auto) 5.6 Absolute Nucleated RBC 0.000 Nucleated RBC % (auto) 0.0 Sodium 140 Potassium 4.4 Chloride 105 Carbon Dioxide 27 Anion Gap 12 BUN 27 H Creatinine 1.00 Estim Creat Clear Calc 54.6 Estimated GFR 55 Fasting Glucose 108 H Calcium 9.3 Total Bilirubin 0.4 AST 16 ALT 20 Alkaline Phosphatase 83 B-Natriuretic Peptide 253 H 79 Total Protein 7.2 Albumin 3.9 Stool Occult Blood NEGATIVE Progress Note: A&P Assessment and plan (1) Decompensated heart failure: Status: Acute Assessment and Plan: Decompensated congestive heart failure preserved ejection fraction. Clinically appears to be much more euvolemic and much less symptomatic. At this point time would switch her to bumetanide 1 mg daily along with Jardiance 10 mg daily. Hold off on her blood pressure medications for now as she has had symptoms of orthostatic lightheadedness at home. Advised her the management of heart failure. Daily weight monitoring avoidance of salt loading was discussed. Additional diuretics as need be. Will need outpatient workup including ischemia workup with cardiac catheterization as well as a sleep study. Will follow up in the clinic in 1-2 weeks. Thank you for allowing me to partake in her care Time Spent With Patient Time: Total time managing care of this patient today ____ minutes. Progress Note: Quality Stroke Does the patient have a stroke diagnosis?: No Procedures Date of Service Date of Service: 02/16/25
[2025-02-16] MEDS: Multivitamin TABLET 1 TAB PO (09:12)
[2025-02-16] MEDS: busPIRone HCl 10 MG TABLET PO (09:12)
[2025-02-16] MEDS: Ascorbic Acid 500 MG TABLET PO (09:12)
[2025-02-16] MEDS: Magnesium Oxide 400 MG TABLET PO (09:12)
[2025-02-16] MEDS: Losartan Potassium 50 MG TABLET 100 MG PO (09:12)
[2025-02-16] MEDS: Empagliflozin 10 MG TABLET PO (09:12)
[2025-02-16] MEDS: Ferrous Sulfate 324 MG TABLET.DR PO (09:12)
[2025-02-16] MEDS: 0.9 % Sodium Chloride Flush 3 ML SYRINGE IVFLUSH (09:13)
--- NOTE | 2025-02-16 11:01 | PM.DS ---
DS: Providers Provider Date of Service: 02/16/25 Date of admission: 02/13/25 17:22 Date of discharge: 02/16/25 Primary care physician: Desiree Ryder MD Consults: 02/13/25 21:16 Consult to Cardiology Routine Consulting Provider: [facility] Reason for consultation: SOB, vascular congestion, bilateral pleural effusions Has provider been notified: Yes DS: Diagnosis Discharge Diagnosis (1) Decompensated heart failure: Status: Acute DS: Summary Hospital Course Hospital Course: 74 years old woman past medical history significant for hypertension presents to the emergency department complaining of 2 weeks' history of shortness on breath with exertion associated with dry cough, chest discomfort, nausea, wheezing and fatigue. She also reported suggestive fever but denies chills. She denied abdominal pain, diarrhea or vomiting. Patient denied acute urinary symptoms. She mentioned that the symptoms started while she was in a cruise I noted that people around her were also sick. She also complained of pitting edema to the lower extremities. Denied tobacco smoking, alcohol abuse or illicit drug use. She has normal history of congestive heart failure, CAD/myocardial infarction or diabetes. She was seen by Dr. Willams in 2021 for possible CHF evaluation. At that time he requested an echocardiogram and a stress test. He failed that patient possibly have diastolic CHF. The stress test showed normal myocardial perfusion with mild reversible apical defect, LVEF 62%. In the ED, she was found to have stable vital signs. Blood pressure has been elevated. Last blood pressure is 171/65. There is no tachycardia and oxygen is normal on room air. Blood workup showed no leukocytosis. Hemoglobin is 11.5 (it was 13.9 on November of this year) and hematocrit 34.4 MCV is 87.8. Platelets are normal. D-dimer is 286. There is no lactic acidosis. Urinalysis is normal. Viral testing for COVID-19, influenza and RSV is negative. Chest CTA with IV contrast showed no evidence of pulmonary embolism. It is showed cardiomegaly, probable mild pulmonary congestion and small bilateral pleural effusions. ECG showed normal sinus rhythm with occasional PVCs, LVH shortness and nonspecific ST changes. Hospital course Admitted to telemetry where monitor failed to demonstrate any acute dysrhythmias. She was seen by Cardiology and initially diuresed orally but then started on a Bumex drip. She did note some dizziness upon administration of her p.o. losartan and Bumex. On the day of discharge, she was switched to Bumex daily and had an excellent diuresis overnight. At this point after discussion with Cardiology she is medically acceptable for DC to home with follow up as scheduled Time Attestation Discharge Coordination Time (in mins): 35 Quality: Safe Use of Opioids Does Pt have an Active Cancer Diagnosis on the Problem List?: No Quality: Stroke Does the patient have a stroke diagnosis?: No Physical Exam Vital Signs: Vital Signs: Last Vital Signs Temp 97.0 F 02/16/25 07:39 Pulse 62 02/16/25 07:39 Resp 18 02/16/25 07:39 BP 129/77 02/16/25 07:39 Pulse Ox 96 02/16/25 07:39 O2 Del Method Room Air 02/16/25 07:39 BMI result Body Mass Index 41.0 Const: Other: Awake alert no acute distress Resp: Other: Clear to auscultation bilaterally. Diminished at bases with scattered crackles Cardio: Other: No S4; positive S1-S2; no S3 murmurs rubs or gallops GI: Other: Soft nontender nondistended normoactive bowel sounds Extrem: Other: Bilateral edema DS: Data Data Completed and Pending Labs on day of discharge: Laboratory Results - last 24 hr 02/16/25 06:29 WBC 9.2 RBC 4.63 Hgb 13.3 Hct 40.1 MCV 86.6 MCH 28.7 MCHC 33.2 RDW 14.7 Plt Count 245 MPV 10.0 Immature Gran % (Auto) 0.3 Neut % (Auto) 60.4 Lymph % (Auto) 26.5 [place] % (Auto) 9.8 Eos % (Auto) 2.1 Baso % (Auto) 0.9 Lymph # (Auto) 2.4 [place] # (Auto) 0.9 Eos # (Auto) 0.2 Baso # (Auto) 0.1 Abs Immat Gran (auto) 0.03 Absolute Neuts (auto) 5.6 Absolute Nucleated RBC 0.000 Nucleated RBC % (auto) 0.0 Sodium 140 Potassium 4.4 Chloride 105 Carbon Dioxide 27 Anion Gap 12 BUN 27 H Creatinine 1.00 Estim Creat Clear Calc 54.6 Estimated GFR 55 Fasting Glucose 108 H Calcium 9.3 Total Bilirubin 0.4 AST 16 ALT 20 Alkaline Phosphatase 83 B-Natriuretic Peptide 79 Total Protein 7.2 Albumin 3.9 Preliminary micro results at discharge 02/13/25 13:32 Blood Culture - Preliminary Blood - Venous No growth after 48 hours. 02/13/25 13:22 Blood Culture - Preliminary Blood - Venous No growth after 48 hours. Discharge Plan Discharge Anticipated Discharge Date/Time: 02/16/25 10:54 Patient Disposition: Home, Self-Care Discharge Diagnosis: Decompensated heart failure with preserved ejection fraction Referrals: Desiree Ryder MD [Primary Care Provider] - 1 Week Discharge Medications: New omeprazole 20 mg Capsule,Delayed Release(Dr/Ec) 20 mg PO DAILY@0630 Qty: 30 0RF Jardiance 10 mg Tablet 10 mg PO DAILY Qty: 30 0RF Continued buspirone 10 mg tablet 10 mg PO BID albuterol sulfate 90 mcg/actuation HFA aerosol inhaler 2 puff inhalation Q6H PRN (Reason: Shortness Of Breath Or Wheezing) magnesium oxide 420 mg Tablet 420 mg PO DAILY ascorbic acid (vitamin C) [Vitamin C] 500 mg Tablet 500 mg PO DAILY vitamin B complex Tablet 1 tab PO DAILY Discontinued losartan 100 mg tablet 100 mg PO DAILY Discharge Orders: Discharge Order (Routine); Ordered 02/16/25 Ordered By: Franco Jain Diet: Advance to usual diet Activity on Discharge: As tolerated Stand Alone Forms: Patient Portal Discharge page Print Language: Choose Not To Answer Care Plan Goals: Bumex 1 mg daily has been added to your regimen. Losartan has been held. Resume all other meds as taken prior to hospitalization Health Concerns: Dr. Thorne's office will call you for a follow up appointment Plan of Treatment: Follow up with your PCP as scheduled Assessment: See discharge summary
--- NOTE | 2025-02-16 11:36 | MHC.CM.PN ---
PT MEDICALLY CLEARED FOR DC HOME SELF CARE, [place] [facility] WILL TRANSPORT SELF
[2025-02-17 07:59] LABS: Transferrin 300 mg/dL (188-341)
== END 2025-02-16 11:44 | disposition home or self-care (01) | DRG 291 ==
LOC: HO.ED 17:20 → HO.EDOVER 18:25 → HO.IMC 02-14 11:01
PROVIDERS: Family Medicine; Physician Assistant; Admitting Provider Internal Medicine; Emergency Provider Emergency Medicine Emergency Medical Services; PCP Internal Medicine; Visit Provider Hospitalist
DX: I11.0 Hypertensive heart disease with heart failure (principal); I50.33 Acute on chronic diastolic (congestive) heart failure; Z68.41 Body mass index [BMI] 40.0-44.9, adult; D50.9 Iron deficiency anemia, unspecified; I25.10 Atherosclerotic heart disease of native coronary artery without angina pectoris; E66.01 Morbid (severe) obesity due to excess calories; J40 Bronchitis, not specified as acute or chronic; Z20.822 Contact with and (suspected) exposure to COVID-19; Z71.3 Dietary counseling and surveillance; Z79.899 Other long term (current) drug therapy
CPT/HCPCS: 0241U; 36415; 71275; 80048; 80053; 80061; 81001; 82272; 82607; 82728; 82746; 83036; 83540; 83605; 83690; 83735; 83880; 84439; 84443; 84466; 84484; 85025; 85027; 85045; 85379; 85730; 87040; 87633; 93005; 93306; 94640; 99285; J1271; J1650; J1938; J1939; J2470; J2919; Q9957; Q9967

== ENCOUNTER → 2025-02-13 11:53 | Outpatient (BNV) | payer MEDICARE, SELFPAY | PROVIDERS: Admitting Provider Internal Medicine; Emergency Provider Emergency Medicine Emergency Medical Services; PCP Internal Medicine; Visit Provider Internal Medicine Cardiovascular Disease | DX: I49.3 Ventricular premature depolarization (principal) | CPT/HCPCS: 93010 ==

== ENCOUNTER → 2025-02-13 13:02 | Outpatient (BNV) | payer MEDICARE, SELFPAY | PROVIDERS: Emergency Provider Emergency Medicine Emergency Medical Services; PCP Internal Medicine; Visit Provider Radiology Diagnostic Radiology | DX: I51.7 Cardiomegaly (principal); J90 Pleural effusion, not elsewhere classified | CPT/HCPCS: 71275 ==

== ENCOUNTER 2025-02-13 17:22 | Outpatient (BNV) | payer MEDICARE, SELFPAY | END 2025-02-14 07:00 | PROVIDERS: Admitting Provider Internal Medicine; Emergency Provider Emergency Medicine Emergency Medical Services; PCP Internal Medicine; Visit Provider Internal Medicine Cardiovascular Disease | DX: I51.89 Other ill-defined heart diseases (principal); I51.7 Cardiomegaly | CPT/HCPCS: 93306 ==

== ENCOUNTER → 2025-02-13 17:22 | Outpatient (BNV) | payer MEDICARE, SELFPAY | PROVIDERS: Admitting Provider Internal Medicine; Emergency Provider Emergency Medicine Emergency Medical Services; PCP Internal Medicine; Visit Provider Internal Medicine | DX: I50.33 Acute on chronic diastolic (congestive) heart failure (principal); R06.09 Other forms of dyspnea; I10 Essential (primary) hypertension; D64.9 Anemia, unspecified | CPT/HCPCS: 99223; 99232 ==

== ENCOUNTER → 2025-02-13 17:22 | Outpatient (BNV) | payer MEDICARE, SELFPAY | PROVIDERS: Admitting Provider Internal Medicine; Emergency Provider Emergency Medicine Emergency Medical Services; PCP Internal Medicine; Visit Provider Internal Medicine Cardiovascular Disease | DX: I50.9 Heart failure, unspecified (principal) | CPT/HCPCS: 99222; 99233 ==

== ENCOUNTER 2025-03-12 11:49 | Outpatient (REF) | payer MEDICARE, SELFPAY | END 2025-03-12 11:50 | disposition home or self-care (01) | LOC: HO.MAMMO 11:49 | PROVIDERS: PCP Internal Medicine; Visit Provider Internal Medicine | DX: Z12.31 Encounter for screening mammogram for malignant neoplasm of breast (principal) | CPT/HCPCS: 77063; 77067 ==

== ENCOUNTER → 2025-03-12 12:15 | Outpatient (BNV) | payer MEDICARE, SELFPAY | PROVIDERS: PCP Internal Medicine; Visit Provider Internal Medicine | DX: Z12.31 Encounter for screening mammogram for malignant neoplasm of breast (principal) | CPT/HCPCS: 77063; 77067 ==

== ENCOUNTER 2025-04-06 10:23 | Inpatient (IN) | payer MEDICARE, SELFPAY ==
[2025-04-06] VITALS (13 sets, daily range): BP systolic 141–185; BP diastolic 71–106; PULSE 91–109; RESP 16–24; TEMP 36.5–36.7; O2SAT 85–97; BMI 37.1
--- NOTE | ~2025-04-06 | CT_ITS ---
CLINICAL HISTORY: ams CT head without contrast. COMPARISON: CT head dated 11/03/22 at 11:56 EST FINDINGS: The visualized paranasal sinuses are clear. The mastoid air cells are clear. No calvarial fracture. No evidence for mass or mass effect. No intracranial hemorrhage or abnormal extra-axial fluid collection. No evidence of hydrocephalus. The basilar cisterns are patent. There are periventricular areas of low attenuation compatible with mild white matter small vessel disease. IMPRESSION: 1. No acute intracranial findings. This document has been electronically signed by: Nilo Duong MD on 04/06/2025 18:46:47
--- NOTE | 2025-04-06 10:25 | ED.GENADULT ---
HPI - General Adult General Chief complaint: ETOH/Substance Use Stated complaint: ETOH Time Seen by Provider: 04/06/25 10:25 Source: patient, EMS, RN notes reviewed and old records reviewed Mode of arrival: EMS Limitations: altered mental status History of Present Illness ED Provider: Sidney CARABALLO narrative: Patient is a 74-year-old female with history of HFpEF, anemia, HTN, depression presenting to the emergency department via EMS stating that she has been drinking alcohol for the past 10 days straight and is specifically requesting IV fluids. Also reports feeling depressed but denies suicidal or homicidal ideation, auditory or visual hallucinations. Denies history of withdrawal seizures. Complains of nausea. Denies any other physical complaints. MD complaint: alcohol intoxication Onset (ago): day(s) Related Data Home Medications ?Medication ?Instructions ?Recorded ?Confirmed albuterol sulfate 90 mcg/actuation 2 puff inhalation Q6H PRN 02/13/25 02/13/25 aerosol inhaler Shortness Of Breath Or Wheezing ascorbic acid (vitamin C) 500 mg 500 mg PO DAILY 02/13/25 02/13/25 tablet (Vitamin C) buspirone 10 mg tablet 10 mg PO BID 02/13/25 02/13/25 magnesium oxide 420 mg tablet 420 mg PO DAILY 02/13/25 02/13/25 vitamin B complex 1 tab PO DAILY 02/13/25 02/13/25 Previous Rx's ?Medication ?Instructions ?Recorded empagliflozin 10 mg tablet 10 mg PO DAILY #30 tabs 02/16/25 (Jardiance) omeprazole 20 mg capsule,delayed 20 mg PO DAILY@0630 #30 caps 02/16/25 release benzonatate 200 mg capsule 200 mg PO TID PRN cough #30 caps 02/17/25 bumetanide 1 mg tablet 1 mg PO DAILY #30 tabs 02/17/25 Allergies Allergy/AdvReac Type Severity Reaction Status Date / Time No Known Allergies Allergy Verified 04/06/25 10:36 Review of Systems Review of Systems: As per HPI Yes all other systems are reviewed and are negative Constitutional: Constitutional: Reports as per HPI [facility] Past Medical History Medical History Obesity (BMI 30-39.9) Depression HTN (hypertension) Surgical History History of right knee surgery Family History Family History Father Myocardial infarct Mother No problems noted. Social History Social History Housing: House Do you presently have visiting nurse or other home services: Yes Alcohol intake: current Alcohol intake frequency: 0-2 drinks per day Alcohol type: wine Patient Tobacco Use Status: Never used Tobacco e-Cigarette/Vaping Use: Never Used Second Hand Smoke Exposure: No Advance Directives: No Advance Directives Information Provided: No service: No Physical Exam ED Vital Signs: Vital Signs - 24 hr 04/06/25 10:28 04/06/25 12:48 04/06/25 13:15 Temperature 98.1 F Pulse Rate 91 100 108 H Respiratory Rate 16 18 19 Blood Pressure 161/86 H 148/71 H 154/89 H Pulse Oximetry 92 96 96 Oxygen Delivery Method Room Air Room Air Room Air Oxygen Flow Rate 04/06/25 13:20 04/06/25 13:21 04/06/25 13:30 Temperature Pulse Rate 104 H Respiratory Rate 20 Blood Pressure 167/89 H Pulse Oximetry 85 L 95 95 Oxygen Delivery Method Room Air Nasal Cannula Nasal Cannula Oxygen Flow Rate 2 2 04/06/25 13:45 04/06/25 14:00 04/06/25 14:15 Temperature Pulse Rate 103 H 102 H 100 Respiratory Rate 19 17 17 Blood Pressure 175/105 H 167/102 H 175/94 H Pulse Oximetry 94 94 95 Oxygen Delivery Method Nasal Cannula Nasal Cannula Nasal Cannula Oxygen Flow Rate 2 2 2 04/06/25 15:21 04/06/25 16:43 Temperature 98.0 F Pulse Rate 102 H 109 H Respiratory Rate 24 H 22 H Blood Pressure 185/106 H 141/78 H Pulse Oximetry 96 95 Oxygen Delivery Method Room Air Room Air Oxygen Flow Rate 2 BMI result Body Mass Index 37.1 Vital signs have been reviewed and appear to be correct. Blood pressure elevated. Heart rate normal. Respiratory rate normal. Temperature normal. Oxygen saturation normal. Const General: no acute distress, alert, awake and intoxicated appearing Orientation/consciousness: oriented to person, oriented to place, oriented to time and patient oriented x3 Limitations: altered mental status HENMT Head: Yes normocephalic and Yes atraumatic Ears: external ears normal General nose exam: Normal external nose present Face and sinus: Yes face symmetric Mouth: oropharynx normal and moist mucous membranes Throat: Yes uvula midline Eyes Pupils: Equal, round and reactive pupils present Neck Neck: Yes normal visual inspection and Yes supple Resp Effort & Inspection: normal respiratory effort and able to speak in complete sentences Auscultation: clear to auscultation bilaterally Cardio Rate: regular rate Rhythm: regular rhythm Heart sounds: S1 normal heart sound present and S2 normal heart sound present GI Palpation (GI): Soft to palpation and nontender Auscultation: normoactive bowel sounds General: Yes no CVA tenderness Back/Spine/Pelvis Back: no CVA tenderness Skin General skin exam: elasticity normal and turgor normal Neuro General: oriented to person, oriented to place, oriented to time, patient oriented x3, tone normal, moves all extremities, Normal light touch and pain sensation, no focal motor deficits, CN's II-XI intact bilaterally and deep tendon reflexes 2+ bilaterally Cranial nerves: Yes Equal, round and reactive pupils present Cognition (Neuro): normal cognition Motor exam (neuro): 5/5 motor strength present throughout, Normal motor muscle tone present throughout and Motor abnormalities not present Extrem General: Yes full ROM, Yes no pedal edema and Yes no calf tenderness Psych Mental Status: mental status grossly normal Affect: normal affect Thought process: Normal thought process present Thought content: suicidality, no homicidality, no hallucinations and Depressive thoughts present Insight: Limited insight present (Psych) Judgement: Limited judgement present (Psych) Course Reevaluation(s) Reevaluation #1: Patient repeatedly asking for iwona kym, water. Discussed with patient that we are waiting for her lab results, specifically BMP. Patient also recently gagging herself by sticking her fingers down her throat and causing herself to vomit. Discussed with patient that we will defer fluids until her nausea has improved. Patient continuously getting out of bed to try to drink water out of the bathroom sink despite multiple attempts at verbal redirection. Constant observer ordered, charger operator in agreement with this. Time: 12:27 Reevaluation #2: Patient now complaining of chest pain, is diaphoretic. Will repeat EKG and add troponin to previously drawn labs. Time: 12:37 Reevaluation #3: Patient continuing to attempt to get out of bed, physically pushing constant observer, refusing to get back into bed. rodrigo Salamanca haldol orderd. Attending, Dr. Covington in agreement with this plan. Time: 13:13 Medications Administered Discontinued Medications Generic Name Dose Route Start Last Admin Trade Name Alejo PRN Reason Stop Dose Admin Diphenhydramine HCl 25 mg 04/06/25 13:09 04/06/25 13:15 Diphenhydramine Hcl 50 Mg/Ml Vial IVPUSH 04/06/25 13:10 25 mg ONCE ONE Administration Haloperidol Lactate 2.5 mg 04/06/25 12:17 04/06/25 13:15 Haloperidol Lactate 5 Mg/Ml Vial IVPUSH 04/06/25 12:18 2.5 mg ONCE ONE Administration Midazolam HCl 2 mg 04/06/25 13:09 04/06/25 13:15 Midazolam Hcl 2 Mg/2 Ml Vial IVPUSH 04/06/25 13:10 2 mg ONCE ONE Administration Ondansetron HCl 4 mg 04/06/25 11:26 04/06/25 12:10 Ondansetron Hcl 4 Mg/2 Ml Vial IVPUSH 04/06/25 11:27 4 mg ONCE ONE Administration Medical Decision Making Medical Decision Making MDM Narrative: Patient is a 74-year-old female with history of HFpEF, anemia, HTN, depression presenting to the emergency department via EMS stating that she has been drinking alcohol for the past 10 days straight and is specifically requesting IV fluids. On exam patient is awake, A+Ox3, VS WNL, afebrile, normal neurological exam without focal deficits, physical exam findings as above. Given reported symptoms and physical exam findings, initial differential includes but is not limited to drug or alcohol intoxication or withdrawal, electrolyte abnormality, depression. Plan for med clearance, sobriety then care team evaluation. Labs notable for ethanol of 270, initial trop of 13, repeat downtrending. EKG and repeat show sinus rhythm with PVCs. Will medically clear patient and place on physician observation for care team evaluation once she is clinically sober. Per CARE team, patient declining any assistance with detox, did not want to speak with them. They do note that in patient's old ED records, she has a history of alcohol use dating back as far as 1998. Clinically patient appears to be in alcohol withdrawal, CT head is without evidence of ICH or other acute abnormality, ammonia and CK normal. Will initiate phenobarb protocol. Admission to Medicine accepted by RACHEAL Wilburn. Differential Diagnosis Differential Diagnoses: The differential diagnosis associated with the presentation includes as per [facility] Admission/Observation Consideration of admission/observation: Escalation of care including admission/observation considered Consult Healthcare Provider Management of the patient was discussed with: Hospitalist Lab Data [facility] Lab Attestation statement: I reviewed the patient's lab results. as per [facility] 04/06/25 10:57 04/06/25 10:57 Labs: Lab Results 04/06/25 04/06/25 04/06/25 Range/Units 10:57 15:07 17:30 WBC 6.1 (4.8-10.8) X10*3/uL RBC 4.77 (4.20-5.50) X10*6/uL Hgb 13.7 (12.0-16.0) g/dl Hct 39.7 (37.0-47.0) % MCV 83.2 (80.0-98.0) fL MCH 28.7 (27.0-33.0) pg MCHC 34.5 (31.0-35.0) g/dl RDW 14.2 (11.0-16.0) % Plt Count 195 (160-400) X10*3/uL MPV 8.3 L (9.4-12.3) fL Immature Gran % (Auto) 1.6 H (0.0-0.4) % Neut % (Auto) 63.2 (45-73) % Lymph % (Auto) 26.2 (20-40) % [place] % (Auto) 7.7 (2-11) % Eos % (Auto) 0.2 (0-4) % Baso % (Auto) 1.1 (0-2) % Lymph # (Auto) 1.6 (1.2-4.9) X10*3/uL [place] # (Auto) 0.5 (0.1-1.2) X10*3/uL Eos # (Auto) 0.0 (0.0-0.4) X10*3/uL Baso # (Auto) 0.1 (0.0-0.2) X10*3/uL Abs Immat Gran (auto) 0.10 H (0.00-0.03) X10*3/uL Absolute Neuts (auto) 3.9 (2.0-8.3) x10*3/uL Absolute Nucleated RBC 0.000 (0.0-0.012) X10*3/uL Nucleated RBC % (auto) 0.0 (0.0-0.2) /100WBC Sodium 143 (135-145) mmol/L Potassium 3.7 (3.3-5.1) mmol/L Chloride 104 (96-108) mmol/L Carbon Dioxide 21 L (22-29) mmol/L Anion Gap 22 H (12-20) BUN 18 H (9-16) mg/dL Creatinine 0.65 (0.5-1.4) mg/dL Estim Creat Clear Calc 76.2 Estimated GFR > 60 Random Glucose 125 H (60-115) mg/dL Calcium 8.0 L D (8.4-10.2) mg/dL Magnesium 1.6 (1.6-2.6) mg/dL Total Bilirubin 0.2 (0.0-1.0) mg/dL AST 33 H (5-31) U/L ALT 26 (0-31) U/L Alkaline Phosphatase 99 (39-117) U/L Ammonia (13-55) umol/L Total Creatine Kinase 63 (26-140) U/L Troponin I High Sens 13.4 9.8 (<3.5-17.0) ng/L B-Natriuretic Peptide 14 (<100) pg/mL Total Protein 6.9 (6.5-8.0) g/dL Albumin 3.7 (3.5-5.0) g/dL Ethyl Alcohol 270 mg/dL 04/06/25 Range/Units 18:07 WBC (4.8-10.8) X10*3/uL RBC (4.20-5.50) X10*6/uL Hgb (12.0-16.0) g/dl Hct (37.0-47.0) % MCV (80.0-98.0) fL MCH (27.0-33.0) pg MCHC (31.0-35.0) g/dl RDW (11.0-16.0) % Plt Count (160-400) X10*3/uL MPV (9.4-12.3) fL Immature Gran % (Auto) (0.0-0.4) % Neut % (Auto) (45-73) % Lymph % (Auto) (20-40) % [place] % (Auto) (2-11) % Eos % (Auto) (0-4) % Baso % (Auto) (0-2) % Lymph # (Auto) (1.2-4.9) X10*3/uL [place] # (Auto) (0.1-1.2) X10*3/uL Eos # (Auto) (0.0-0.4) X10*3/uL Baso # (Auto) (0.0-0.2) X10*3/uL Abs Immat Gran (auto) (0.00-0.03) X10*3/uL Absolute Neuts (auto) (2.0-8.3) x10*3/uL Absolute Nucleated RBC (0.0-0.012) X10*3/uL Nucleated RBC % (auto) (0.0-0.2) /100WBC Sodium (135-145) mmol/L Potassium (3.3-5.1) mmol/L Chloride (96-108) mmol/L Carbon Dioxide (22-29) mmol/L Anion Gap (12-20) BUN (9-16) mg/dL Creatinine (0.5-1.4) mg/dL Estim Creat Clear Calc Estimated GFR Random Glucose (60-115) mg/dL Calcium (8.4-10.2) mg/dL Magnesium (1.6-2.6) mg/dL Total Bilirubin (0.0-1.0) mg/dL AST (5-31) U/L ALT (0-31) U/L Alkaline Phosphatase (39-117) U/L Ammonia 27 (13-55) umol/L Total Creatine Kinase (26-140) U/L Troponin I High Sens (<3.5-17.0) ng/L B-Natriuretic Peptide (<100) pg/mL Total Protein (6.5-8.0) g/dL Albumin (3.5-5.0) g/dL Ethyl Alcohol mg/dL Independent Interpretation I performed an independent interpretation of an: EKG (Normal sinus rhythm, rate 90 beats per minute, normal SD interval and QTC; repeat EKG shows sinus rhythm with occasional PVCs, rate 96 beats per minute, normal SD interval and slightly prolonged QTC) and CT Scan Interpretation: No evidence of ICH on CT head Radiology Impression Discussion of test interpretation with radiology: I have reviewed the radiologist's reading. Radiologist Impression: CT head without contrast. COMPARISON: CT head dated 11/03/22 at 11:56 EST FINDINGS: The visualized paranasal sinuses are clear. The mastoid air cells are clear. No calvarial fracture. No evidence for mass or mass effect. No intracranial hemorrhage or abnormal extra-axial fluid collection. No evidence of hydrocephalus. The basilar cisterns are patent. There are periventricular areas of low attenuation compatible with mild white matter small vessel disease. IMPRESSION: 1. No acute intracranial findings. External Record Review External record reviewed: Inpatient record, Office record and Outpatient record Critical Care Time Critical Care Time Critical Care Time: Yes Total Critical Care Time: 65 Attestation: I have personally provided critical care time exclusive of time spent on separately billable procedures. Time includes review of lab data, radiology results, discussion with consultants, and monitoring for potential decompensation. Intervention performed as documented. Discharge Plan Discharge Patient Disposition: Admitted As Inpatient Print Language: Choose Not To Answer
--- NOTE | 2025-04-06 10:28 | ECG_ITS ---
Test Reason : ETOH Blood Pressure : */* mmHG Vent. Rate : 90 BPM Atrial Rate : 90 BPM P-R Int : 158 ms QRS Dur : 78 ms QT Int : 362 ms P-R-T Axes : 26 -29 21 degrees QTcB Int : 442 ms Normal sinus rhythm Minimal voltage criteria for LVH, may be normal variant ( R in aVL ) Nonspecific ST abnormality Abnormal ECG When compared with ECG of 13-Feb-2025 11:57, Premature ventricular complexes are no longer Present Referred By: Fatuma Little Electronically Signed By: SHYANN LEWIS
[2025-04-06 11:01] LABS: MANUAL DIFF FLAG NO
[2025-04-06 11:02] LABS: Hematocrit 39.7 % (37.0-47.0); Hemoglobin 13.7 g/dl (12.0-16.0); Imm Gran Abs Auto 0.10 X10*3/uL (0.00-0.03); Imm Gran Pct Auto 1.6 % (0.0-0.4); Lymphocytes Absolute Auto 1.6 X10*3/uL (1.2-4.9); Mean Corpuscular HGB Conc 34.5 g/dl (31.0-35.0); Mean Corpuscular Hemoglobin 28.7 pg (27.0-33.0); Mean Corpuscular Volume 83.2 fL (80.0-98.0); NRBC Abs Auto 0.000 X10*3/uL (0.0-0.012); NRBC Pct Auto 0.0 /100WBC (0.0-0.2); Platelet Count 195 X10*3/uL (160-400); Red Blood Count 4.77 X10*6/uL (4.20-5.50); White Blood Count 6.1 X10*3/uL (4.8-10.8)
[2025-04-06 11:15] LABS: Magnesium 1.6 mg/dL (1.6-2.6)
[2025-04-06 11:24] LABS: Alanine Aminotransferase 26 U/L (0-31); Albumin Level 3.7 g/dL (3.5-5.0); Alkaline Phosphatase 99 U/L (39-117); Anion Gap 22 (12-20); Aspartate Amino Transferase 33 U/L (5-31); Blood Urea Nitrogen 18 mg/dL (9-16); Calcium 8.0 mg/dL (8.4-10.2); Carbon Dioxide 21 mmol/L (22-29); Chloride 104 mmol/L (96-108); Creatinine Clr Calc Pharmacy 76.2; Estimated Glomerular Filt Rate > 60; Potassium 3.7 mmol/L (3.3-5.1); Sodium 143 mmol/L (135-145); Total Protein 6.9 g/dL (6.5-8.0)
--- NOTE | 2025-04-06 12:36 | ECG_ITS ---
Test Reason : CP Blood Pressure : */* mmHG Vent. Rate : 96 BPM Atrial Rate : 96 BPM P-R Int : 132 ms QRS Dur : 94 ms QT Int : 388 ms P-R-T Axes : 55 -22 44 degrees QTcB Int : 490 ms Sinus rhythm with occasional Premature ventricular complexes Moderate voltage criteria for LVH, may be normal variant ( R in aVL , [place] product ) Prolonged QT Abnormal ECG When compared with ECG of 06-Apr-2025 11:10, Premature ventricular complexes are now Present Referred By: Fatuma Little Electronically Signed By: SHYANN LEWIS
[2025-04-06 12:46] LABS: B Type Natriuretic Peptide 14 pg/mL (<100)
--- NOTE | 2025-04-06 12:46 | PC.NURSE ---
for past 30-45 minutes patient has been ambulating, seeking something to drink, very difficult to redirect to bed. was disregarding advice to take no PO and sneaking sips of water from sink. per CABBAGE SALTER and primary RN pt had been enduicing vomiting with fingers. clear emisis found on floor at bedside. after a small BM with scant breonna blood pt became diaphoretic. had not been straining. was in bed, grabbing left side of chest and became less active though never lost consciousness. CABBAGE SALTER to bedside.
[2025-04-06 12:58] LABS: Troponin-I High Sensitivity 13.4 ng/L (<3.5-17.0)
--- NOTE | 2025-04-06 13:48 | PC.NURSE ---
Pt to ED 12, agitated, attempting to get OOB and leave. Several staff members attempted but unable to redirect. Pt continually yelling at staff and removing monitors, appears tremulous and diaphoretic. Provider at bedside, new orders placed and pt medicated per NOV. 1:1 sitter bedside.
[2025-04-06 15:31] LABS: Troponin-I High Sensitivity 9.8 ng/L (<3.5-17.0)
--- NOTE | 2025-04-06 16:30 | MHC.RECOVRN ---
Recovery eval completed, pt declining all interventions at this time.
--- NOTE | 2025-04-06 17:29 | MHC.CARE ---
CARE team attempted to meet with Pt regarding reported depression and alcohol use. Pt is awake however concentration is poor. Pt is observed to be sweating and is clammy, fidgety and restless. She often asks for T/W to get her water and asks for T/W assistance to insert IV fluids. Pt reports feeling significantly unwell and is dizzy. Pt reports that she has been depressed since her 12 years ago. She reports that she has a PCP that prescribes her medication for blood pressure and depression. Pt reports that she lives alone. She denies SI/HI/AVH. She denies a hx of SI attempts or SIB. Pt has a documented hx of alcohol use dating back to at least 1998, however Pt is declines to discuss current alcohol use. Pt only expresses, I can't drink alcohol anymore. Help. She declines detox multiple times. Attempted to obtain collateral Pt's nephew ([place]; [phone]); no answer and a VM was left with contact information. Pt's presentation was discussed with the ED provider who reported that Pt may need to medically admitted for withdrawal and that further medical workup would need to be done.
[2025-04-06 18:23] LABS: Ammonia 27 umol/L (13-55)
--- NOTE | 2025-04-06 18:23 | ECG_ITS ---
Test Reason : chest pain Blood Pressure : */* mmHG Vent. Rate : 102 BPM Atrial Rate : 102 BPM P-R Int : 144 ms QRS Dur : 80 ms QT Int : 370 ms P-R-T Axes : 61 -26 20 degrees QTcB Int : 482 ms Sinus tachycardia with frequent Premature ventricular complexes Minimal voltage criteria for LVH, may be normal variant ( R in aVL ) Borderline ECG When compared with ECG of 06-Apr-2025 12:35, No significant change was found Referred By: Fatuma Little Electronically Signed By: SHYANN LEWIS
--- NOTE | 2025-04-06 18:23 | PC.NURSE ---
Pt reported incidence of chest pain, Fatuma Ochoa BAND INSTRUMENT REPAIRER aware. EKG ordered.
--- NOTE | 2025-04-06 19:39 | PM.IMHP ---
History of Present Illness Date of Service: 04/06/25 Attending physician on admission: Claude Welsh Chief Complaint: alcohol abuse Patient is a 74-year-old female with past medical history hypertension hyperlipidemia, alcohol use,HFpEF, GERD, call 911 because of her excessive alcohol use over the last 3 days. Patient has been drinking mostly scotch and started suddenly for no specific reason. Patient denies feeling suicidal. Patient did mention that 12 years prior. Patient is seeking help for her drinking issues. Patient does currently live alone and does not have a lot of support in the community. Patient denies history of pancreatitis, alcohol withdrawal and/or seizures. Patient denies any known issues with her liver including cirrhosis or hepatitis. Patient currently denies any shortness of breath at rest or with exertion or chest pain. Patient is having some intermittent loose stool. Per staff patient was presenting as a flight risk and one-to-one was placed. Patient currently denies any suicide ideations or homicidal ideations. Patient is feeling depressed with mild anxiety.. On exam patient noted to have some purulent discharge from the left eye but both eyes appear red with possible conjunctivitis. Patient denies any other medical complaints at this time. Review of Systems Review of Systems: Patient currently denies any chest pain, shortness of breath at rest or with exertion, abdominal pain but is having loose stool. Patient denies any recent travel or exposure to anyone with illness. Patient denies any nausea or vomiting. Patient denies any suicide ideations or homicidal ideations at this time. Yes all other systems are reviewed and are negative [facility] Medical History (HFpEF) heart failure with preserved ejection fraction Anemia Congestive heart failure, unspecified Essential hypertension Obesity (BMI 30-39.9) Depression HTN (hypertension) Cognitive capacity: Alert and orientated x3 Functional capacity: independent ambulation Patient : No Family History Father Myocardial infarct Mother No problems noted. Surgical History History of right knee surgery Social History (Updated 04/06/25 @ 21:03 by MEGAN Carr) Household Members: None Housing: House Do you presently have visiting nurse or other home services: No Alcohol intake: current Alcohol intake frequency: 0-2 drinks per day Alcohol type: wine Comment: Has been using scotch for the last 3 days Patient Tobacco Use Status: Never used Tobacco e-Cigarette/Vaping Use: Never Used Second Hand Smoke Exposure: No Have you been hit, kicked, punched, or otherwise hurt by someone within the past year? If so, by whom?: No Is there a partner from a previous relationship who is making you feel unsafe now?: No Are you made to feel afraid or neglected: No Advance Directives: No Advance Directives Information Provided: No Do you have a plan to hurt others: No Plan Patient : No service: No Ebola Risk: Travel/Contact With Anyone From Affected Area/s: No Has Patient Experienced Ebola Symptoms: No Meds Allergies Allergy/AdvReac Type Severity Reaction Status Date / Time No Known Allergies Allergy Verified 04/06/25 10:36 Active Medications: Current Medications Pharmacy Consult (Consult Rx Etoh Phenob Im/Po) 1 each MISCELLANE ONCE PRN; Protocol PRN Reason: Consult order Phenobarbital (Phenobarbital 30 Mg Tablet) 30 mg PO BID [facility] Stop: 04/08/25 21:01 Phenobarbital (Phenobarbital 15 Mg Tablet) 15 mg PO BID [facility] Stop: 04/10/25 21:01 Phenobarbital (Phenobarbital 15 Mg Tablet) 15 mg PO DAILY [facility] Stop: 04/12/25 09:01 Phenobarbital Sodium (Phenobarbital Sodium 130 Mg/Ml Im Once) 218 mg IM ONCE ONE Stop: 04/06/25 20:01 Phenobarbital Sodium (Phenobarbital Sodium 65 Mg/Ml Vial Q3hx2) 164 mg IM Q3H [facility] Stop: 04/07/25 02:01 Home Medications ?Medication ?Instructions ?Recorded ?Confirmed ?Last Taken ?Type albuterol sulfate 90 mcg/actuation 2 puff inhalation Q6H PRN 02/13/25 02/13/25 Unknown History aerosol inhaler Shortness Of Breath Or Wheezing ascorbic acid (vitamin C) 500 mg 500 mg PO DAILY 02/13/25 02/13/25 02/13/25 History tablet (Vitamin C) buspirone 10 mg tablet 10 mg PO BID 02/13/25 02/13/25 02/13/25 History magnesium oxide 420 mg tablet 420 mg PO DAILY 02/13/25 02/13/25 02/13/25 History vitamin B complex 1 tab PO DAILY 02/13/25 02/13/25 02/13/25 History Physical Exam Vital Signs and Narrative: Vital Signs: Last Vital Signs Temp 98.0 F 04/06/25 15:21 Pulse 109 H 04/06/25 16:43 Resp 22 H 04/06/25 16:43 BP 141/78 H 04/06/25 16:43 Pulse Ox 95 04/06/25 16:43 O2 Del Method Room Air 04/06/25 16:43 O2 Flow Rate 2 04/06/25 15:21 BMI result Body Mass Index 37.1 Alert and orientated X3, able to give good history. Neuro: CN II-X11 intact, no deficits, visual acuity intact EYES: PERRLA, EOM intact, both periorbital areas are red with purulent drainage especially from left eye, sclerae nonicteric, conjunctiva pink ENT: hearing intact, no issues with swallowing, uvula midline, lips moist, nares patent no epistaxis Cardiac: S1 S2 RRR, no murmur, no JVD, no edema in Lower ext Pulmonary: lungs clear to ausculation B Abdominal: BS active in all 4 quadrants, no guarding, tenderness, rebounding MSK: strength 5/5 upper and lower extremities : no CVA tenderness no bladder distension Extremities: no edema in lower extremities, PT and DP pulses palpable +2 Psych: mood anxious and overwhelmed, judgement and insight good Skin: Intact Results Labs 04/06/25 10:57 04/06/25 10:57 Labs: Laboratory Results - last 24 hr 04/06/25 04/06/25 04/06/25 10:57 17:30 18:07 MCV 83.2 MCH 28.7 MCHC 34.5 RDW 14.2 Plt Count 195 MPV 8.3 L Immature Gran % (Auto) 1.6 H Neut % (Auto) 63.2 Lymph % (Auto) 26.2 Clark % (Auto) 7.7 Eos % (Auto) 0.2 Baso % (Auto) 1.1 Lymph # (Auto) 1.6 Clark # (Auto) 0.5 Eos # (Auto) 0.0 Baso # (Auto) 0.1 Abs Immat Gran (auto) 0.10 H Absolute Neuts (auto) 3.9 Absolute Nucleated RBC 0.000 Nucleated RBC % (auto) 0.0 Anion Gap 22 H Estim Creat Clear Calc 76.2 Estimated GFR > 60 Random Glucose 125 H Calcium 8.0 L D Magnesium 1.6 Total Bilirubin 0.2 AST 33 H ALT 26 Alkaline Phosphatase 99 Ammonia 27 Total Creatine Kinase 63 B-Natriuretic Peptide 14 Total Protein 6.9 Albumin 3.7 Ethyl Alcohol 270 ECG Attestation: I personally reviewed and interpreted this ECG as follows: (ST PVCs) Prior ECG tracings: available for review Assessment and Plan (1) Alcohol withdrawal syndrome: Qualifiers: Complication of substance-induced condition: uncomplicated Qualified Code(s): F10.930 - Alcohol use, unspecified with withdrawal, uncomplicated Status: Acute Plan Patient is a 74-year-old female with past medical history hypertension hyperlipidemia, alcohol use,HFpEF, GERD, call 911 because of her excessive alcohol use over the last 3 days. Patient is being admitted for alcohol withdrawal syndrome and request for intervention with a addictions. Alcohol withdrawal CIWA protocol ordered phenobarbital regimen initiated in the emergency department Thiamine and folic acid ordered Addictions consulted Psychiatry consulted for ongoing issues related to depression anxiety, no suicidal ideations or need for section 12 at this time, will check Vitamin D level Magnesium 1.6, 2 g of IV magnesium provided LFT stable Lipase pending, no report of pancreatitis in the past Telemetry ordered Diet will be allowed if lipase WNL, no N/V, Metabolic acidosis with anion gap 22 IV fluids continue, LR at 80 mls Monitor BMP Renal function stable HTN Hydralazine IV Q6H prn for systolic > 160 Low Na diet Pt not normally on antihypertensives at home HFpEF VSS BNP 14 Await MED REC continue usual medications Daily wts, low Na diet, I/Os Conjunctivitis Noted in bilateral eyes, L > R Sulfacetamide ophthalmic drops ordered bilateral eyes q.3 hours while awake for 3 days DVT prophylaxis: lovenox MED REC PENDING FULL CODE Quality Stroke Does the patient have a stroke diagnosis?: No Reason for No Anti-thrombotic by Day Two: N/A - Med Ordered VTE Prior VTE?: No VTE Risk Level:: Medical - moderate - high VTE Device Contraindication: N/A - Device Ordered VTE Drug Contraindication: N/A - Med Ordered
--- NOTE | 2025-04-06 19:41 | PC.NURSE ---
assumed care of pt, pt calm ad cooperative with 1:1 sitter at bedside. respirations even and unlabored.
[2025-04-06] MEDS: PHENobarbitaL sodium 130 MG/ML IM ONCE 218 MG IM (20:00)
--- NOTE | 2025-04-06 20:02 | PC.NURSE ---
pt medicated per Nov, at a 2, admitting provider Subha at bedside. Pt denies any pain.
[2025-04-06 21:15] LABS: Lipase 50 U/L (8-78)
[2025-04-06] MEDS: Magnesium Sulfate/H2O 2 GM/50 ML PIGGYBACK IV (21:15)
--- NOTE | 2025-04-06 21:19 | PC.NURSE ---
pt placed into recliner per request at this time, sitter remains at bedside.
[2025-04-06] MEDS: Lactated Ringers 1,000 ML 80 ML IVCONT (21:25)
[2025-04-06 21:32] LABS: Free T4 (Free Thyroxine) 0.89 ng/dL (0.71-1.85); Thyroid Stimulating Hormone 5.24 uIU/mL (0.32-4.0)
[2025-04-06] MEDS: Sulfacetamide Sodium 10 % Oph 15 ML DRBTL 1 DROP EYE-BOTH (21:49)
--- NOTE | 2025-04-06 21:50 | PC.NURSE ---
pt medicated with eye dros per NOV. pt questioned if it was okay to take with having had cataract surgery in the past, admitting provider MARLINE Mascorro confirmed this was okay to give. Pt agreed and tolerated well.
[2025-04-06] MEDS: PHENobarbitaL sodium 65 MG/ML VIAL Q3Hx2 164 MG IM (23:13)
--- NOTE | 2025-04-07 00:08 | PC.NURSE ---
pt resting in stretcher with no acute distress noted, pt is calm and cooperative at this time. sitter removed and camera in place. camera room sheet faxed and initials of camera sitter KP
[2025-04-07 02:05] VITALS: BP 146/69; PULSE 94; RESP 16; O2SAT 97
[2025-04-07] MEDS: Sulfacetamide Sodium 10 % Oph 15 ML DRBTL 1 DROP EYE-BOTH ×7 (02:07→20:58)
[2025-04-07] MEDS: PHENobarbitaL sodium 65 MG/ML VIAL Q3Hx2 164 MG IM (02:07)
--- NOTE | 2025-04-07 02:28 | PC.NURSE ---
pt medicated per MAR, CIWA 4.
[2025-04-07 04:00] VITALS: BP 164/74; PULSE 83; RESP 18; TEMP 36.9; O2SAT 97
[2025-04-07 05:10] VITALS: BMI 40.0
[2025-04-07 07:05] LABS: MANUAL DIFF FLAG NO
[2025-04-07 07:24] VITALS: BP 144/71; PULSE 78; RESP 17; TEMP 37.4; O2SAT 93
[2025-04-07 07:24] LABS: Hematocrit 38.7 % (37.0-47.0); Hemoglobin 13.0 g/dl (12.0-16.0); Imm Gran Abs Auto 0.09 X10*3/uL (0.00-0.03); Imm Gran Pct Auto 1.0 % (0.0-0.4); Lymphocytes Absolute Auto 1.0 X10*3/uL (1.2-4.9); Mean Corpuscular HGB Conc 33.6 g/dl (31.0-35.0); Mean Corpuscular Hemoglobin 28.3 pg (27.0-33.0); Mean Corpuscular Volume 84.3 fL (80.0-98.0); NRBC Abs Auto 0.000 X10*3/uL (0.0-0.012); NRBC Pct Auto 0.0 /100WBC (0.0-0.2); Platelet Count 166 X10*3/uL (160-400); Red Blood Count 4.59 X10*6/uL (4.20-5.50); White Blood Count 8.6 X10*3/uL (4.8-10.8)
[2025-04-07 07:35] LABS: Alanine Aminotransferase 23 U/L (0-31); Albumin Level 3.6 g/dL (3.5-5.0); Alkaline Phosphatase 104 U/L (39-117); Aspartate Amino Transferase 39 U/L (5-31); Blood Urea Nitrogen 17 mg/dL (9-16); Calcium 8.2 mg/dL (8.4-10.2); Creatinine Clr Calc Pharmacy 83.5; Estimated Glomerular Filt Rate > 60; Total Protein 6.7 g/dL (6.5-8.0)
[2025-04-07 07:44] LABS: Anion Gap 18 (12-20); Carbon Dioxide 25 mmol/L (22-29); Chloride 100 mmol/L (96-108); Potassium 4.1 mmol/L (3.3-5.1); Sodium 139 mmol/L (135-145)
[2025-04-07 08:14] LABS: Magnesium 2.0 mg/dL (1.6-2.6)
--- NOTE | 2025-04-07 08:19 | MHC.CM.PN ---
CM met with Patient at bed side and addressed IMM with her, providing Patient with the original and a copy has been placed on the chart. 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 Home self care vs Recovery Team intervention r/t ETOH is the tentative plan and CM has initiated and will follow for dc planning. PCP is Dr. Desiree Ryder and HCP is Nephamna/[place]. Brother will transport to home at time of dc.
[2025-04-07] MEDS: Lactated Ringers 1,000 ML 80 ML IVCONT ×2 (09:16→20:32)
--- NOTE | 2025-04-07 09:31 | PHA.MEDREC ---
Addendum entered by Zelalem Vargas, Carolyne 04/07/25 10:05: reviewed, will let provider know about the Bumetaninde, it is noted in [employer] note from last admission with potential to increase. Pt potentially getting it mixed up with a different medication. Original Note: Pharmacy Consult ? Medication Reconciliation Pharmacy has completed the medication reconciliation. Spoke with pt and she was a bit groggy this morning but was able to confirm her medications. Pt stated she was not taking the Bumetanide 1mg tab (claims shows pt just got it filled 03/16 from [facility] confirmed pt got it 03/27 of 90 days) but was not able to give a reason why or when it was stopped.
[2025-04-07 11:12] VITALS: BP 153/69; PULSE 85; RESP 17; TEMP 37.1; O2SAT 93
--- NOTE | 2025-04-07 13:30 | P.PNIM_ITS ---
Subjective Subjective Date of Service: 04/07/25 Interval History: f/u alcohol withdrawal Feels tired and diaphoretic Depressed, no SI/HI Review of Systems Review of Systems: Yes all other systems are reviewed and are negative Physical Exam 2 Exam: Exam: General: AOx3, no acute distress Resp: CTA bilaterally CVS: S1, S2, RRR GI: +BS, NT, no distention Skin: Warm, dry Neuro: Cranial nerves II-XII grossly intact bilaterally. Motor grossly intact bilaterally Extremities: No edema Psych: Depressed affect Vital Signs: Vital Signs: Last Vital Signs Temp 98.7 F 04/07/25 11:12 Pulse 85 04/07/25 11:12 Resp 17 04/07/25 11:12 BP 153/69 H 04/07/25 11:12 Pulse Ox 93 04/07/25 11:12 O2 Del Method Room Air 04/07/25 11:12 O2 Flow Rate 2 04/06/25 15:21 BMI result Body Mass Index 40.0 Objective Data Active Medications Acetaminophen (Acetaminophen 325 Mg Tablet) 650 mg PO Q6H PRN PRN Reason: Pain, Mild 1-3,fever,headache Albuterol/Ipratropium (Albuterol/Iprat 2.5/0.5mg 3 Ml Ampul.Neb) 3 ml INHALE Q4H PRN PRN Reason: Shortness of Breath/Wheezing Calcium Carbonate (Calcium Carbonate 750 Mg Tab.Chew) 750 mg PO Q4H PRN PRN Reason: Heartburn Enoxaparin Sodium (Enoxaparin Sodium 40 Mg/0.4 Ml Syringe) 40 mg SUBCUT Q24H [facility] Last Admin: 04/07/25 08:20 Dose: 40 mg Documented By: LUIS ALFREDO Folic Acid (Folic Acid 1 Mg Tablet) 1 mg PO DAILY [facility] Last Admin: 04/07/25 08:20 Dose: 1 mg Documented By: LUIS ALFREDO Hydralazine HCl (Hydralazine Hcl 20 Mg/Ml Vial) 10 mg IVPUSH Q6H PRN; Protocol PRN Reason: SBP > 160 Lactated Ringer's (Lr) 1,000 mls @ 80 mls/hr IVCONT .[id number] [facility] Last Admin: 04/07/25 09:16 Dose: 80 mls/hr Documented By: LUIS ALFREDO Magnesium Hydroxide (Milk Of Magnesia 30 Ml Oral.Susp) 30 ml PO DAILY PRN PRN Reason: Constipation Melatonin (Melatonin 3 Mg Tablet) 6 mg PO BEDTIME PRN PRN Reason: Insomnia Ondansetron HCl (Ondansetron Hcl 4 Mg/2 Ml Vial) 4 mg IVPUSH Q8H PRN PRN Reason: Nausea and Vomiting Pharmacy Consult (Consult Rx Etoh Phenob Im/Po) 1 each MISCELLANE ONCE PRN; Protocol PRN Reason: Consult order Phenobarbital (Phenobarbital 30 Mg Tablet) 30 mg PO BID [facility] Stop: 04/08/25 21:01 Last Admin: 04/07/25 08:20 Dose: 30 mg Documented By: LUIS ALFREDO Phenobarbital (Phenobarbital 15 Mg Tablet) 15 mg PO BID [facility] Stop: 04/10/25 21:01 Phenobarbital (Phenobarbital 15 Mg Tablet) 15 mg PO DAILY [facility] Stop: 04/12/25 09:01 Sodium Chloride (0.9 % Sodium Chloride Flush 3 Ml Syringe) 3 ml IVFLUSH QSHIFT [facility] Last Admin: 04/07/25 07:35 Dose: Not Given Documented By: LUIS ALFREDO Non-Admin Reason: IV Running Sulfacetamide Sodium (Sulfacetamide Sodium 10 % Oph 15 Ml Drbtl) 1 drop EYE- BOTH Q3H [facility] Stop: 04/09/25 20:59 Last Admin: 04/07/25 11:34 Dose: 1 drop Documented By: LUIS ALFREDO Thiamine HCl (Thiamine Hcl 100 Mg Tablet) 100 mg PO DAILY [facility] Last Admin: 04/07/25 08:20 Dose: 100 mg Documented By: LUIS ALFREDO Labs 04/07/25 06:38 04/07/25 06:38 Labs: Laboratory Results - last 24 hr 04/06/25 04/06/25 04/07/25 17:30 18:07 06:38 MCV 84.3 MCH 28.3 MCHC 33.6 RDW 14.3 Plt Count 166 MPV 9.7 Immature Gran % (Auto) 1.0 H Neut % (Auto) 81.2 H Lymph % (Auto) 11.2 L [place] % (Auto) 5.9 Eos % (Auto) 0.2 Baso % (Auto) 0.5 Lymph # (Auto) 1.0 L [place] # (Auto) 0.5 Eos # (Auto) 0.0 Baso # (Auto) 0.0 Abs Immat Gran (auto) 0.09 H Absolute Neuts (auto) 7.0 Absolute Nucleated RBC 0.000 Nucleated RBC % (auto) 0.0 Anion Gap 18 Estim Creat Clear Calc 83.5 Estimated GFR > 60 Random Glucose 110 Calcium 8.2 L Magnesium 2.0 Total Bilirubin 0.8 AST 39 H ALT 23 Alkaline Phosphatase 104 Ammonia 27 Total Creatine Kinase 63 Total Protein 6.7 Albumin 3.6 Lipase 50 TSH 5.24 H Free T4 0.89 Assessment and Plan (1) Alcohol withdrawal syndrome: Status: Acute Plan Patient is a 74-year-old female with past medical history hypertension hyperlipidemia, alcohol use,HFpEF, GERD, call 911 because of her excessive alcohol use over the last 3 days. Patient is being admitted for alcohol withdrawal syndrome and request for intervention with a addictions. Alcohol withdrawal CIWA protocol ordered phenobarbital regimen initiated in the emergency department Thiamine and folic acid Addiction med consult Psychiatry consulted for ongoing issues related to depression anxiety, no suicidal ideations or need for section 12 at this time Magnesium repleated LFT stable Telemetry ordered Metabolic acidosis with anion gap, resolved IV fluids continue, LR at 80 mls Monitor BMP Renal function stable HTN Hydralazine IV Q6H prn for systolic > 160 Low Na diet Pt not normally on antihypertensives at home Chronic HFpEF, no acute exacetbation VSS BNP 14 Continue bumex Daily wts, low Na diet, I/Os Conjunctivitis Sulfacetamide ophthalmic drops ordered bilateral eyes q.3 hours while awake for 3 days DVT prophylaxis: lovenox Full code Continued need for hospitalization: etoh withdrawal Quality Stroke Does the patient have a stroke diagnosis?: No Reason for No Anti-thrombotic by Day Two: N/A - Med Ordered VTE Prior VTE?: No VTE Risk Level:: Medical - moderate - high VTE Device Contraindication: N/A - Device Ordered VTE Drug Contraindication: N/A - Med Ordered
[2025-04-07 15:16] VITALS: BP 155/76; PULSE 69; RESP 17; TEMP 37.3; O2SAT 97
--- NOTE | 2025-04-07 16:06 | HO.ADDICTCON ---
History of Present Illness Date of Service: 04/07/2025 Chief Complaint: alcohol withdraw Reason for Consult: AUD Sources of Information: chart reviewed HPI Narrative: Most information obtained via chart review as patient declined to participate in interview Patient is a 74 year old female with medical history that included CHF and depression. Per notes, patient called ambulance to her home because she was drinking too much and wanted help. Once in ED, she was admitted with alcohol withdrawal and initiated on phenobarbital. Patient seen in room 443. She was laying in bed, with eyes closed, initially responding to simple questions, stating she did not feel well, but would not elaborate beyond that. She did not appear tremulous, restless or diaphoretic. She shook her head no to questions about previous withdrawal. When asked what kind of alcohol she was drinking, patient responded, however t/w could not decipher what she was saying. Patient did not open eyes at all during eval. medical asst eval completed on 04/06 and at that time patient reported increase in drinking 10 days ago, drinking several (8-10) drinks daily. She denied any treatment history and per RN note, states that she just recently began drinking. Labs reviewed--Mg 1.6 at admission (repleted) TSH elevated 5.24 (increase from February 4.0) T4 WNL Medical Evaluation Reviewed: Yes Review of Systems Review of Systems Yes Unobtainable due to mental status (patient non participatory) Diagnostics Vital Signs (24Hr): Vital Signs - 24 hr 04/06/25 16:43 04/06/25 21:52 04/06/25 23:12 Temperature 97.7 F Pulse Rate 109 H 93 96 Respiratory Rate 22 H 22 H 16 Blood Pressure 141/78 H 173/75 H 165/78 H Pulse Oximetry 95 97 95 Oxygen Delivery Method Room Air Room Air Room Air 04/07/25 02:05 04/07/25 04:00 04/07/25 07:24 Temperature 98.5 F 99.4 F Pulse Rate 94 83 78 Respiratory Rate 16 18 17 Blood Pressure 146/69 H 164/74 H 144/71 H Pulse Oximetry 97 97 93 Oxygen Delivery Method Room Air Room Air Room Air 04/07/25 11:12 04/07/25 15:16 Temperature 98.7 F 99.2 F Pulse Rate 85 69 Respiratory Rate 17 17 Blood Pressure 153/69 H 155/76 H Pulse Oximetry 93 97 Oxygen Delivery Method Room Air Room Air BMI result Body Mass Index 40.0 Labs 04/07/25 06:38 04/07/25 06:38 Labs: Laboratory Results - last 48 hr 04/06/25 04/06/25 04/06/25 10:57 15:07 17:30 WBC 6.1 RBC 4.77 Hgb 13.7 Hct 39.7 MCV 83.2 MCH 28.7 MCHC 34.5 RDW 14.2 Plt Count 195 MPV 8.3 L Immature Gran % (Auto) 1.6 H Neut % (Auto) 63.2 Lymph % (Auto) 26.2 Crisp % (Auto) 7.7 Eos % (Auto) 0.2 Baso % (Auto) 1.1 Lymph # (Auto) 1.6 Crisp # (Auto) 0.5 Eos # (Auto) 0.0 Baso # (Auto) 0.1 Abs Immat Gran (auto) 0.10 H Absolute Neuts (auto) 3.9 Absolute Nucleated RBC 0.000 Nucleated RBC % (auto) 0.0 Sodium 143 Potassium 3.7 Chloride 104 Carbon Dioxide 21 L Anion Gap 22 H BUN 18 H Creatinine 0.65 Estim Creat Clear Calc 76.2 Estimated GFR > 60 Random Glucose 125 H Calcium 8.0 L D Magnesium 1.6 Total Bilirubin 0.2 AST 33 H ALT 26 Alkaline Phosphatase 99 Ammonia Total Creatine Kinase 63 Troponin I High Sens 13.4 9.8 B-Natriuretic Peptide 14 Total Protein 6.9 Albumin 3.7 Lipase 50 TSH 5.24 H Free T4 0.89 Ethyl Alcohol 270 04/06/25 04/07/25 18:07 06:38 WBC 8.6 RBC 4.59 Hgb 13.0 Hct 38.7 MCV 84.3 MCH 28.3 MCHC 33.6 RDW 14.3 Plt Count 166 MPV 9.7 Immature Gran % (Auto) 1.0 H Neut % (Auto) 81.2 H Lymph % (Auto) 11.2 L Crisp % (Auto) 5.9 Eos % (Auto) 0.2 Baso % (Auto) 0.5 Lymph # (Auto) 1.0 L Crisp # (Auto) 0.5 Eos # (Auto) 0.0 Baso # (Auto) 0.0 Abs Immat Gran (auto) 0.09 H Absolute Neuts (auto) 7.0 Absolute Nucleated RBC 0.000 Nucleated RBC % (auto) 0.0 Sodium 139 Potassium 4.1 Chloride 100 Carbon Dioxide 25 Anion Gap 18 BUN 17 H Creatinine 0.62 Estim Creat Clear Calc 83.5 Estimated GFR > 60 Random Glucose 110 Calcium 8.2 L Magnesium 2.0 Total Bilirubin 0.8 AST 39 H ALT 23 Alkaline Phosphatase 104 Ammonia 27 Total Creatine Kinase Troponin I High Sens B-Natriuretic Peptide Total Protein 6.7 Albumin 3.6 Lipase TSH Free T4 Ethyl Alcohol Mental Status Exam Mental Status Exam Level of Consciousness: Awake Patient Behavior: Passive and Avoidant Affect Description: Flat Medications Medications Current Medications Acetaminophen (Acetaminophen 325 Mg Tablet) 650 mg PO Q6H PRN PRN Reason: Pain, Mild 1-3,fever,headache Albuterol/Ipratropium (Albuterol/Iprat 2.5/0.5mg 3 Ml Ampul.Neb) 3 ml INHALE Q4H PRN PRN Reason: Shortness of Breath/Wheezing Ascorbic Acid (Ascorbic Acid 500 Mg Tablet) 500 mg PO DAILY [facility] Bumetanide (Bumetanide 1 Mg Tablet) 1 mg PO DAILY [facility]; Protocol Buspirone HCl (Buspirone Hcl 10 Mg Tablet) 10 mg PO BID [facility] Calcium Carbonate (Calcium Carbonate 750 Mg Tab.Chew) 750 mg PO Q4H PRN PRN Reason: Heartburn Cyanocobalamin (Cyanocobalamin (Vitamin B-12) 500 Mcg Tablet) 500 mcg PO DAILY [facility] Enoxaparin Sodium (Enoxaparin Sodium 40 Mg/0.4 Ml Syringe) 40 mg SUBCUT Q24H [facility] Last Admin: 04/07/25 08:20 Dose: 40 mg Folic Acid (Folic Acid 1 Mg Tablet) 1 mg PO DAILY [facility] Last Admin: 04/07/25 08:20 Dose: 1 mg Hydralazine HCl (Hydralazine Hcl 20 Mg/Ml Vial) 10 mg IVPUSH Q6H PRN; Protocol PRN Reason: SBP > 160 Lactated Ringer's (Lr) 1,000 mls @ 80 mls/hr IVCONT .[id number] [facility] Last Admin: 04/07/25 09:16 Dose: 80 mls/hr Losartan Potassium (Losartan Potassium 50 Mg Tablet) 50 mg PO DAILY [facility]; Protocol Last Admin: 04/07/25 13:43 Dose: 50 mg Magnesium Hydroxide (Milk Of Magnesia 30 Ml Oral.Susp) 30 ml PO DAILY PRN PRN Reason: Constipation Magnesium Oxide (Magnesium Oxide 400 Mg Tablet) 400 mg PO DAILY [facility] Melatonin (Melatonin 3 Mg Tablet) 6 mg PO BEDTIME PRN PRN Reason: Insomnia Ondansetron HCl (Ondansetron Hcl 4 Mg/2 Ml Vial) 4 mg IVPUSH Q8H PRN PRN Reason: Nausea and Vomiting Pharmacy Consult (Consult Rx Etoh Phenob Im/Po) 1 each MISCELLANE ONCE PRN; Protocol PRN Reason: Consult order Phenobarbital (Phenobarbital 30 Mg Tablet) 30 mg PO BID [facility] Stop: 04/08/25 21:01 Last Admin: 04/07/25 08:20 Dose: 30 mg Phenobarbital (Phenobarbital 15 Mg Tablet) 15 mg PO BID [facility] Stop: 04/10/25 21:01 Phenobarbital (Phenobarbital 15 Mg Tablet) 15 mg PO DAILY [facility] Stop: 04/12/25 09:01 Pyridoxine HCl (Pyridoxine Hcl (Vitamin B6) 50 Mg Tablet) 50 mg PO DAILY [facility] Sertraline HCl (Sertraline Hcl 100 Mg Tablet) 100 mg PO DAILY [facility] Last Admin: 04/07/25 13:43 Dose: 100 mg Sodium Chloride (0.9 % Sodium Chloride Flush 3 Ml Syringe) 3 ml IVFLUSH QSHIFT [facility] Last Admin: 04/07/25 07:35 Dose: Not Given Sulfacetamide Sodium (Sulfacetamide Sodium 10 % Oph 15 Ml Drbtl) 1 drop EYE-BOTH Q3H [facility] Stop: 04/09/25 20:59 Last Admin: 04/07/25 14:18 Dose: 1 drop Thiamine HCl (Thiamine Hcl 100 Mg Tablet) 100 mg PO DAILY [facility] Last Admin: 04/07/25 08:20 Dose: 100 mg Allergies Allergies Allergy/AdvReac Type Severity Reaction Status Date / Time No Known Allergies Allergy Verified 04/06/25 10:36 Assessment & Plan Assessment & Plan (1) Alcohol withdrawal syndrome: Qualifiers: Complication of substance-induced condition: uncomplicated Qualified Code(s): F10.930 - Alcohol use, unspecified with withdrawal, uncomplicated Status: Acute Code(s): F10.939 - Alcohol use, unspecified with withdrawal, unspecified Assessment and Plan: CIWA scores have been very low 0,1. Phenobarbitol taper in place --thiamine and folic acid recovery operator helper to follow up tomorrow in final attempt to see if patient is open to support Total time managing care of this patient today _20___ minutes. [facility] Past Medical History Medical History (HFpEF) heart failure with preserved ejection fraction Anemia Congestive heart failure, unspecified Essential hypertension Obesity (BMI 30-39.9) Depression HTN (hypertension) Family History Family History Father Myocardial infarct Mother No problems noted. Surgical History Surgical History History of right knee surgery Social History Social History (Updated 04/06/25 @ 21:03 by MEGAN Carr) Household Members: None Housing: House Do you presently have visiting nurse or other home services: No Alcohol intake: current Alcohol intake frequency: 0-2 drinks per day Alcohol type: wine Comment: Has been using scotch for the last 3 days Patient Tobacco Use Status: Never used Tobacco e-Cigarette/Vaping Use: Never Used Second Hand Smoke Exposure: No Currently Displaying Signs/Symptoms of Drug Intoxication Withdrawal: No Have you been hit, kicked, punched, or otherwise hurt by someone within the past year? If so, by whom?: No Is there a partner from a previous relationship who is making you feel unsafe now?: No Are you made to feel afraid or neglected: No Advance Directives: No Advance Directives Information Provided: No Do you have a plan to hurt others: No Plan Patient : No service: No
--- NOTE | 2025-04-07 16:48 | MHC.RECOVRN ---
TW attempted to meet pt on several occasions today to provide support or resources if needed. Pt was sleeping on approach and unable to fully answer questions, speech was low and difficult to follow. Pt reports I just want to rest . TW available for questions or concerns if needed.
[2025-04-07 19:21] VITALS: BP 153/70; PULSE 87; RESP 15; TEMP 37.2; O2SAT 94
[2025-04-08] VITALS (8 sets, daily range): BP systolic 124–163; BP diastolic 59–74; PULSE 71–88; RESP 16–18; TEMP 36.9–37.4; O2SAT 93–95
[2025-04-08] MEDS: Sulfacetamide Sodium 10 % Oph 15 ML DRBTL 1 DROP EYE-BOTH ×5 (05:30→20:33)
[2025-04-08 06:32] LABS: Alanine Aminotransferase 17 U/L (0-31); Albumin Level 3.2 g/dL (3.5-5.0); Alkaline Phosphatase 91 U/L (39-117); Anion Gap 8 (12-20); Aspartate Amino Transferase 43 U/L (5-31); Blood Urea Nitrogen 14 mg/dL (9-16); Calcium 7.9 mg/dL (8.4-10.2); Carbon Dioxide 29 mmol/L (22-29); Chloride 104 mmol/L (96-108); Creatinine Clr Calc Pharmacy 86.3; Estimated Glomerular Filt Rate > 60; Potassium 3.4 mmol/L (3.3-5.1); Sodium 138 mmol/L (135-145); Total Protein 5.9 g/dL (6.5-8.0)
[2025-04-08 06:49] LABS: Hematocrit 34.6 % (37.0-47.0); Hemoglobin 11.8 g/dl (12.0-16.0); Mean Corpuscular HGB Conc 34.1 g/dl (31.0-35.0); Mean Corpuscular Hemoglobin 29.0 pg (27.0-33.0); Mean Corpuscular Volume 85.0 fL (80.0-98.0); NRBC Abs Auto 0.000 X10*3/uL (0.0-0.012); NRBC Pct Auto 0.0 /100WBC (0.0-0.2); Platelet Count 144 X10*3/uL (160-400); Red Blood Count 4.07 X10*6/uL (4.20-5.50); White Blood Count 6.7 X10*3/uL (4.8-10.8)
[2025-04-08] MEDS: Lactated Ringers 1,000 ML 80 ML IVCONT (08:59)
[2025-04-08] MEDS: 0.9 % Sodium Chloride Flush 3 ML SYRINGE IVFLUSH ×2 (14:36→20:34)
--- NOTE | 2025-04-08 15:40 | P.PNIM_ITS ---
Subjective Subjective Date of Service: 04/08/25 Interval History: f/u etoh withdrawal, depression feeling ok, no complaints very depressed, was drinking excessively due to depression. no SI/HI does not have psychiatrist Review of Systems Review of Systems: Yes all other systems are reviewed and are negative Physical Exam 2 Exam: Exam: General: AOx3, no acute distress Resp: CTA bilaterally CVS: S1, S2, RRR GI: +BS, NT, no distention Skin: Warm, dry Neuro: Cranial nerves II-XII grossly intact bilaterally. Motor grossly intact bilaterally Extremities: No LE edema Psych: tearful, good insight Vital Signs: Vital Signs: Last Vital Signs Temp 98.4 F 04/08/25 15:17 Pulse 77 04/08/25 15:17 Resp 18 04/08/25 15:17 BP 153/71 H 04/08/25 15:17 Pulse Ox 93 04/08/25 15:17 O2 Del Method Room Air 04/08/25 15:17 O2 Flow Rate 2 04/06/25 15:21 BMI result Body Mass Index 40.0 Objective Data Active Medications Acetaminophen (Acetaminophen 325 Mg Tablet) 650 mg PO Q6H PRN PRN Reason: Pain, Mild 1-3,fever,headache Albuterol/Ipratropium (Albuterol/Iprat 2.5/0.5mg 3 Ml Ampul.Neb) 3 ml INHALE Q4H PRN PRN Reason: Shortness of Breath/Wheezing Ascorbic Acid (Ascorbic Acid 500 Mg Tablet) 500 mg PO DAILY [facility] Last Admin: 04/08/25 09:00 Dose: 500 mg Documented By: KALA Bumetanide (Bumetanide 1 Mg Tablet) 1 mg PO DAILY [facility]; Protocol Last Admin: 04/08/25 09:00 Dose: 1 mg Documented By: KALA Buspirone HCl (Buspirone Hcl 10 Mg Tablet) 10 mg PO BID [facility] Last Admin: 04/08/25 09:00 Dose: 10 mg Documented By: KALA Calcium Carbonate (Calcium Carbonate 750 Mg Tab.Chew) 750 mg PO Q4H PRN PRN Reason: Heartburn Cyanocobalamin (Cyanocobalamin (Vitamin B-12) 500 Mcg Tablet) 500 mcg PO DAILY [facility] Last Admin: 04/08/25 09:00 Dose: 500 mcg Documented By: KALA Enoxaparin Sodium (Enoxaparin Sodium 40 Mg/0.4 Ml Syringe) 40 mg SUBCUT Q24H [facility] Last Admin: 04/08/25 09:00 Dose: 40 mg Documented By: KALA Folic Acid (Folic Acid 1 Mg Tablet) 1 mg PO DAILY [facility] Last Admin: 04/08/25 09:00 Dose: 1 mg Documented By: KALA Hydralazine HCl (Hydralazine Hcl 20 Mg/Ml Vial) 10 mg IVPUSH Q6H PRN; Protocol PRN Reason: SBP > 160 Lactated Ringer's (Lr) 1,000 mls @ 80 mls/hr IVCONT .[id number] [facility] Last Admin: 04/08/25 08:59 Dose: 80 mls/hr Documented By: KALA Losartan Potassium (Losartan Potassium 50 Mg Tablet) 50 mg PO DAILY [facility]; Protocol Last Admin: 04/08/25 09:00 Dose: 50 mg Documented By: KALA Magnesium Hydroxide (Milk Of Magnesia 30 Ml Oral.Susp) 30 ml PO DAILY PRN PRN Reason: Constipation Magnesium Oxide (Magnesium Oxide 400 Mg Tablet) 400 mg PO DAILY [facility] Last Admin: 04/08/25 09:00 Dose: 400 mg Documented By: KALA Melatonin (Melatonin 3 Mg Tablet) 6 mg PO BEDTIME PRN PRN Reason: Insomnia Ondansetron HCl (Ondansetron Hcl 4 Mg/2 Ml Vial) 4 mg IVPUSH Q8H PRN PRN Reason: Nausea and Vomiting Pharmacy Consult (Consult Rx Etoh Phenob Im/Po) 1 each MISCELLANE ONCE PRN; Protocol PRN Reason: Consult order Phenobarbital (Phenobarbital 30 Mg Tablet) 30 mg PO BID [facility] Stop: 04/08/25 21:01 Last Admin: 04/08/25 09:00 Dose: 30 mg Documented By: KALA Phenobarbital (Phenobarbital 15 Mg Tablet) 15 mg PO BID [facility] Stop: 04/10/25 21:01 Phenobarbital (Phenobarbital 15 Mg Tablet) 15 mg PO DAILY [facility] Stop: 04/12/25 09:01 Pyridoxine HCl (Pyridoxine Hcl (Vitamin B6) 50 Mg Tablet) 50 mg PO DAILY [facility] Last Admin: 04/08/25 09:00 Dose: 50 mg Documented By: KALA Sertraline HCl (Sertraline Hcl 100 Mg Tablet) 100 mg PO DAILY [facility] Last Admin: 04/08/25 09:00 Dose: 100 mg Documented By: KALA Sodium Chloride (0.9 % Sodium Chloride Flush 3 Ml Syringe) 3 ml IVFLUSH QSHIFT [facility] Last Admin: 04/08/25 14:36 Dose: 3 ml Documented By: KALA Sulfacetamide Sodium (Sulfacetamide Sodium 10 % Oph 15 Ml Drbtl) 1 drop EYE- BOTH Q3H [facility] Stop: 04/09/25 20:59 Last Admin: 04/08/25 14:36 Dose: 1 drop Documented By: KALA Thiamine HCl (Thiamine Hcl 100 Mg Tablet) 100 mg PO DAILY [facility] Last Admin: 04/08/25 09:00 Dose: 100 mg Documented By: KALA Labs 04/08/25 05:57 04/08/25 05:57 Labs: Laboratory Results - last 24 hr 04/08/25 05:57 MCV 85.0 MCH 29.0 MCHC 34.1 RDW 14.4 Plt Count 144 L MPV 10.1 Absolute Nucleated RBC 0.000 Nucleated RBC % (auto) 0.0 Anion Gap 8 L Estim Creat Clear Calc 86.3 Estimated GFR > 60 Random Glucose 95 Calcium 7.9 L Total Bilirubin 0.7 AST 43 H ALT 17 Alkaline Phosphatase 91 Total Protein 5.9 L Albumin 3.2 L Assessment and Plan (1) Alcohol withdrawal syndrome: Status: Acute (2) Depression: Status: Acute Plan Patient is a 74-year-old female with past medical history hypertension hyperlipidemia, alcohol use,HFpEF, GERD, call 911 because of her excessive alcohol use over the last 3 days. Patient is being admitted for alcohol withdrawal syndrome and request for intervention with a addictions. Alcohol withdrawal [facility] protocol ordered phenobarbital regimen initiated in the emergency department Thiamine and folic acid Addiction med consult - unsuccessful Psychiatry consulted for ongoing issues related to depression anxiety, no suicidal ideations or need for section 12 at this time Magnesium repleated LFT stable Telemetry Metabolic acidosis with anion gap, resolved IV fluids continue, LR at 80 mls Monitor BMP Renal function stable HTN Hydralazine IV Q6H prn for systolic > 160 Low Na diet Pt not normally on antihypertensives at home Chronic HFpEF, no acute exacetbation BNP 14 Continue bumex Daily wts, low Na diet, I/Os Conjunctivitis Sulfacetamide ophthalmic drops ordered bilateral eyes q.3 hours while awake for 3 days. discontinue tomorrow. DVT prophylaxis: lovenox Full code Continued need for hospitalization: etoh withdrawal, psych consult dispo: d/c likely home tomorrow Quality Stroke Does the patient have a stroke diagnosis?: No Reason for No Anti-thrombotic by Day Two: N/A - Med Ordered VTE Prior VTE?: No VTE Risk Level:: Medical - moderate - high VTE Device Contraindication: N/A - Device Ordered VTE Drug Contraindication: N/A - Med Ordered
--- NOTE | 2025-04-08 20:35 | PM.PSYCN ---
History of Present Illness Date of Service: 04/08/25 Chief Complaint: depression and anxiety Reason for Consult: Increase depression and anxiety Requesting physician: Sneha Charles Discussed with referring provider: Yes (Discuss with on duty MD- Patient's attending is off duty. ) Sources of Information: patient interviewed, chart reviewed and crisis/core team assessment reviewed HPI Narrative: Patient is a 74-year-old female with past medical history hypertension hyperlipidemia, alcohol use,HFpEF, GERD, and depression called 911 because of her excessive alcohol use. Patient is admitted for alcohol withdrawal symptoms. Past Psychiatric History: No IPLOC admission No PHP No Detox hx No OP psychiatrist or therapist. Have PCP but PCP does not want to manage her psych medication. No SI/ suicide attempts hx . Medication trials: Was taking Ambien and Ativan. However her daughter does not give it to her anymore. Trial trazodone 100 mg at bedtime for insomnia. Currently on sertraline 100 mg for depression/anxiety. With taking her self down due to feeling less depressed and anxious. So she on and off taking medication Medical Evaluation Reviewed: Yes Defer to medical team Review of Systems Review of Systems No SOB, vomiting or nausea. Appears to be edematous on face around the eyes on on her hands. [facility] Medical History (Updated 04/08/25 @ 20:52 by Bere Nicole NP) (HFpEF) heart failure with preserved ejection fraction Anemia Congestive heart failure, unspecified Essential hypertension Obesity (BMI 30-39.9) Depression HTN (hypertension) Surgical History History of right knee surgery Family History: passed 12 years ago. Do not have children but raise her nephew who she called him my son . He live in [place]-20 min away Sister in law who she is very close to on 11/08/2024 which make patient more depressed lately Social History: She is retired since 10/2024. 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 She currently lives at home by herself. She believes in [employer] and is a hinduism goer. She sings at hinduism at as well. Substance History: Denies substance use. Report start drinking a little, one beer here and there then things out of control. Willingly to come and called ambulance herself to stop drinking. Trauma History: Denies Diagnostics Vital Signs (24Hr): Vital Signs - 24 hr 04/08/25 00:00 04/08/25 03:33 04/08/25 07:35 Temperature 99.2 F 99.4 F 98.4 F Pulse Rate 88 75 82 Respiratory Rate 17 16 18 Blood Pressure 154/71 H 160/74 H 163/74 H Pulse Oximetry 95 95 94 Oxygen Delivery Method Room Air Room Air Room Air 04/08/25 09:00 04/08/25 09:00 04/08/25 11:36 Temperature 98.7 F Pulse Rate 74 Respiratory Rate 18 Blood Pressure 163/74 H 163/74 H 129/60 Pulse Oximetry 93 Oxygen Delivery Method Room Air 04/08/25 15:17 04/08/25 19:12 Temperature 98.4 F 99.1 F Pulse Rate 77 71 Respiratory Rate 18 18 Blood Pressure 153/71 H 124/69 Pulse Oximetry 93 95 Oxygen Delivery Method Room Air Room Air BMI result Body Mass Index 40.0 Labs 04/08/25 05:57 04/08/25 05:57 Labs: Laboratory Results - last 48 hr 04/06/25 04/07/25 04/08/25 17:30 06:38 05:57 WBC 8.6 6.7 RBC 4.59 4.07 L Hgb 13.0 11.8 L Hct 38.7 34.6 L MCV 84.3 85.0 MCH 28.3 29.0 MCHC 33.6 34.1 RDW 14.3 14.4 Plt Count 166 144 L MPV 9.7 10.1 Immature Gran % (Auto) 1.0 H Neut % (Auto) 81.2 H Lymph % (Auto) 11.2 L [place] % (Auto) 5.9 Eos % (Auto) 0.2 Baso % (Auto) 0.5 Lymph # (Auto) 1.0 L [place] # (Auto) 0.5 Eos # (Auto) 0.0 Baso # (Auto) 0.0 Abs Immat Gran (auto) 0.09 H Absolute Neuts (auto) 7.0 Absolute Nucleated RBC 0.000 0.000 Nucleated RBC % (auto) 0.0 0.0 Sodium 139 138 Potassium 4.1 3.4 Chloride 100 104 Carbon Dioxide 25 29 Anion Gap 18 8 L BUN 17 H 14 Creatinine 0.62 0.60 Estim Creat Clear Calc 83.5 86.3 Estimated GFR > 60 > 60 Random Glucose 110 95 Calcium 8.2 L 7.9 L Magnesium 2.0 Total Bilirubin 0.8 0.7 AST 39 H 43 H ALT 23 17 Alkaline Phosphatase 104 91 Total Protein 6.7 5.9 L Albumin 3.6 3.2 L Lipase 50 TSH 5.24 H Free T4 0.89 Mental Status Exam Mental Status Exam Narrative: Patient is alert and oriented x4; behavior is cooperative, friendly with mild to moderate anxiety and depression; patient is not in distress; dressed in hospital attire with kempt hair and adequate hygiene; mood is described as very anxious and depressed and affect congruent; eye contact appropriate; Speech is normal rate, volume and prosody and not pressured; no psychomotor agitation/retardation present; thought process is organized and goal directed I need help; Thought content is WNL, pertinent to relevant topics and without any delusional content, paranoid ideation or grandiosity; denies any SI/SIB/HI. Denies AH and there is no evidence of perceptual disturbance. Patient's insight and judgment fair. Judgement and Insight: fair Medications Medications Current Medications Acetaminophen (Acetaminophen 325 Mg Tablet) 650 mg PO Q6H PRN PRN Reason: Pain, Mild 1-3,fever,headache Albuterol/Ipratropium (Albuterol/Iprat 2.5/0.5mg 3 Ml Ampul.Neb) 3 ml INHALE Q4H PRN PRN Reason: Shortness of Breath/Wheezing Ascorbic Acid (Ascorbic Acid 500 Mg Tablet) 500 mg PO DAILY [facility] Last Admin: 04/08/25 09:00 Dose: 500 mg Bumetanide (Bumetanide 1 Mg Tablet) 1 mg PO DAILY [facility]; Protocol Last Admin: 04/08/25 09:00 Dose: 1 mg Buspirone HCl (Buspirone Hcl 10 Mg Tablet) 20 mg PO BID [facility] Last Admin: 04/08/25 20:33 Dose: 20 mg Calcium Carbonate (Calcium Carbonate 750 Mg Tab.Chew) 750 mg PO Q4H PRN PRN Reason: Heartburn Cyanocobalamin (Cyanocobalamin (Vitamin B-12) 500 Mcg Tablet) 500 mcg PO DAILY [facility] Last Admin: 04/08/25 09:00 Dose: 500 mcg Enoxaparin Sodium (Enoxaparin Sodium 40 Mg/0.4 Ml Syringe) 40 mg SUBCUT Q24H [facility] Last Admin: 04/08/25 09:00 Dose: 40 mg Folic Acid (Folic Acid 1 Mg Tablet) 1 mg PO DAILY [facility] Last Admin: 04/08/25 09:00 Dose: 1 mg Hydralazine HCl (Hydralazine Hcl 20 Mg/Ml Vial) 10 mg IVPUSH Q6H PRN; Protocol PRN Reason: SBP > 160 Hydroxyzine HCl (Hydroxyzine Hcl 50 Mg Tablet) 50 mg PO Q6H PRN PRN Reason: Anxiety Losartan Potassium (Losartan Potassium 50 Mg Tablet) 50 mg PO DAILY [facility]; Protocol Last Admin: 04/08/25 09:00 Dose: 50 mg Magnesium Hydroxide (Milk Of Magnesia 30 Ml Oral.Susp) 30 ml PO DAILY PRN PRN Reason: Constipation Magnesium Oxide (Magnesium Oxide 400 Mg Tablet) 400 mg PO DAILY [facility] Last Admin: 04/08/25 09:00 Dose: 400 mg Melatonin (Melatonin 3 Mg Tablet) 9 mg PO BEDTIME [facility] Ondansetron HCl (Ondansetron Hcl 4 Mg/2 Ml Vial) 4 mg IVPUSH Q8H PRN PRN Reason: Nausea and Vomiting Pharmacy Consult (Consult Rx Etoh Phenob Im/Po) 1 each MISCELLANE ONCE PRN; Protocol PRN Reason: Consult order Phenobarbital (Phenobarbital 30 Mg Tablet) 30 mg PO BID [facility] Stop: 04/08/25 21:01 Last Admin: 04/08/25 20:33 Dose: 30 mg Phenobarbital (Phenobarbital 15 Mg Tablet) 15 mg PO BID [facility] Stop: 04/10/25 21:01 Phenobarbital (Phenobarbital 15 Mg Tablet) 15 mg PO DAILY [facility] Stop: 04/12/25 09:01 Pyridoxine HCl (Pyridoxine Hcl (Vitamin B6) 50 Mg Tablet) 50 mg PO DAILY [facility] Last Admin: 04/08/25 09:00 Dose: 50 mg Sertraline HCl (Sertraline Hcl 100 Mg Tablet) 100 mg PO DAILY [facility] Last Admin: 04/08/25 09:00 Dose: 100 mg Sodium Chloride (0.9 % Sodium Chloride Flush 3 Ml Syringe) 3 ml IVFLUSH QSHIFT [facility] Last Admin: 04/08/25 20:34 Dose: 3 ml Sulfacetamide Sodium (Sulfacetamide Sodium 10 % Oph 15 Ml Drbtl) 1 drop EYE-BOTH Q3H [facility] Stop: 04/09/25 20:59 Last Admin: 04/08/25 20:33 Dose: 1 drop Thiamine HCl (Thiamine Hcl 100 Mg Tablet) 100 mg PO DAILY [facility] Last Admin: 04/08/25 09:00 Dose: 100 mg Trazodone HCl (Trazodone Hcl 100 Mg Tablet) 100 mg PO BEDTIME [facility] Last Admin: 04/08/25 20:33 Dose: 100 mg Allergies Allergies Allergy/AdvReac Type Severity Reaction Status Date / Time No Known Allergies Allergy Verified 04/06/25 10:36 Assessment & Plan Assessment & Plan (1) Depression with anxiety: Status: Acute Code(s): F41.8 - Other specified anxiety disorders Plan HPI: Patient is a 74-year-old female with past medical history hypertension hyperlipidemia, alcohol use,HFpEF, GERD, and depression called 911 because of her excessive alcohol use. Patient is admitted for alcohol withdrawal symptoms. Met with patient at 1945 in room 443. Patient requests to have the door closed as she does not want other people listen to our conversation/discussion. Reports that she has been depressed since [id number] who in 11/08/2024. She started with drinking a little bit of beer sometimes hard liquor, then she could not even stopped. She never thinks she can not go into this direction. She reports that she recognize the drinking issue, she call and come here for help herself. She said usually she 'tried to be strong, and that I do not need help'. However she said, she has said that I do need help . Reports severe anxiety and depression. Feeling lonely even though she is not alone She retired in October 2024. Reports depression symptoms: Not able to sleep, toss and turn at night, poor appetite, having no purpose or no reason to keep going. Denies any other safety. Denies suicidal thoughts history. Denies suicide attempts history. Was diagnosed with depression. Never diagnosed with bipolar. Precipitants: Could be lonely, recently retired, recently lost her [id number] who she is closed to. Formulation/clinical reasoning: Discussed with patient regarding medication for insomnia, anxiety/depression. Patient is receptive with the hope that patient will be referred to psychiatry services for aftercare to continue with medication. Case also discussed with covering attending-who will pass information to the next morning attending. Case also discussed with assigned nurse regarding medication. Nurse aware to monitor for sedation as nurse reported that she has been sleeping most of the day. Plan: Start hydroxyzine 50 mg q.6 hours as needed for anxiety. Restart trazodone 100 mg at bedtime for insomnia (have history of take up to 100mg) Melatonin increased from 6 mg to 9 mg at bedtime per patient request. Reported that she taking 10 mg at home. Increase BuSpar from 10 mg twice a day to 20 mg twice a day for anxiety. Patient reports it was not helpful. I suspect that the doses subtherapeutic, therefore she agreed to increase to see if it is working. Patient is aware that Ativan or Ambien is not prescribed during this hospitalization. And that we have to try the other medications 1st. If it is not working, then we will revisit. 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 Medical team to refer patient to outpatient psychiatry-so that patient can continue with medication prescribed here. Total time managing care of this patient today ____ minutes. Patient educated on: diagnosis, medication risk/benefits, substance abuse and therapeutic strategies Informed Consent: understands
[2025-04-09 01:07] LABS: Cannabinoid Screen Urine Not Detected (Not Detect)
[2025-04-09 02:55] VITALS: BP 144/66; PULSE 57; RESP 18; TEMP 37.5; O2SAT 93
[2025-04-09] MEDS: Sulfacetamide Sodium 10 % Oph 15 ML DRBTL 1 DROP EYE-BOTH ×3 (06:20→12:41)
[2025-04-09 07:00] VITALS: BP 158/76; PULSE 57; RESP 18; TEMP 37; O2SAT 96
[2025-04-09 09:13] VITALS: BP 158/76
[2025-04-09 09:14] VITALS: BP 158/76
[2025-04-09] MEDS: 0.9 % Sodium Chloride Flush 3 ML SYRINGE IVFLUSH (09:14)
[2025-04-09 11:17] VITALS: BP 156/79; PULSE 76; RESP 18; TEMP 36.6; O2SAT 97
--- NOTE | 2025-04-09 13:37 | PM.DS ---
DS: Providers Provider Date of Service: 04/09/25 Date of admission: 04/06/25 19:02 Date of discharge: 04/09/25 Primary care physician: Desiree Ryder MD Consults: 04/06/25 15:41 ED CARE Team Crisis Consult Routine Comment: Reason for consultation: depression, recent etoh use 04/06/25 20:54 Addiction Medicine Provider Routine Consulting Provider: Addiction Covering Reason for consultation: alcohol abuse, pt wants help Has provider been notified: No 04/06/25 21:11 Consult to Psychiatry Routine Consulting Provider: [facility] Psych Covering Reason for consultation: alcohopl abuse associated with significant depression and anxiety Has provider been notified: No 04/07/25 05:19 Addiction Medicine Provider Routine Consulting Provider: Addiction Covering Reason for consultation: ETOH abuse DS: Diagnosis Discharge Diagnosis (1) Depression with anxiety: Status: Acute DS: Summary Hospital Course Hospital Course: 74-year-old female with past medical history hypertension hyperlipidemia, alcohol use,HFpEF, GERD, call 911 because of her excessive alcohol use over the last 3 days. Patient has been drinking mostly scotch and started suddenly for no specific reason. Patient denies feeling suicidal. Patient did mention that 12 years prior. Patient is seeking help for her drinking issues. Patient does currently live alone and does not have a lot of support in the community. Patient denies history of pancreatitis, alcohol withdrawal and/or seizures. Patient denies any known issues with her liver including cirrhosis or hepatitis. Patient currently denies any shortness of breath at rest or with exertion or chest pain. Patient is having some intermittent loose stool. Per staff patient was presenting as a flight risk and one-to-one was placed. Patient currently denies any suicide ideations or homicidal ideations. Patient is feeling depressed with mild anxiety.. Hospital COurse Admit to telemetry. CIWA scale remained flat during hospitalization. Seen by Psychiatry and meds adjusted. Is acceptable for outpatient follow up. At this time she is medically acceptable for discharge home with follow up with the PCP Time Attestation Discharge Coordination Time (in mins): 35 Quality: Safe Use of Opioids Does Pt have an Active Cancer Diagnosis on the Problem List?: No Quality: Stroke Does the patient have a stroke diagnosis?: No Physical Exam Vital Signs: Vital Signs: Last Vital Signs Temp 98 F 04/09/25 11:17 Pulse 76 04/09/25 11:17 Resp 18 04/09/25 11:17 BP 156/79 H 04/09/25 11:17 Pulse Ox 97 04/09/25 11:17 O2 Del Method Room Air 04/09/25 07:00 O2 Flow Rate 2 04/06/25 15:21 BMI result Body Mass Index 40.0 Const: Other: Awake alert no acute distress Resp: Other: Clear to auscultation bilaterally no rales rhonchi or wheezes Cardio: Other: No S4; positive S1-S2; no S3 murmurs rubs or gallops GI: Other: Soft nontender nondistended normoactive bowel sounds Extrem: Other: No edema bilaterally DS: Data Data Completed and Pending Labs on day of discharge: Laboratory Results - last 24 hr 04/09/25 00:42 Urine Opiates Screen Not Detected Ur Buprenorphine Scrn Not Detected Ur Oxycodone Screen Not Detected Urine Methadone Screen Not Detected Urine Fentanyl Screen Not Detected Ur Barbiturates Screen POSITIVE H Ur Phencyclidine Scrn Not Detected Ur Amphetamines Screen Not Detected U Benzodiazepines Scrn Not Detected Urine Cocaine Screen Not Detected U Marijuana (THC) Screen Not Detected Discharge Plan Discharge Anticipated Discharge Date/Time: 04/09/25 13:28 Patient Disposition: Home, Self-Care Discharge Diagnosis: Alcohol withdrawal Referrals: Desiree Ryder MD [Primary Care Provider, Internal Medicine] - 1 Week Discharge Medications: New hydroxyzine HCl 50 mg Tablet 50 mg PO Q6H PRN (Reason: Anxiety) Qty: 20 0RF trazodone 100 mg Tablet 100 mg PO BEDTIME Qty: 30 0RF buspirone 10 mg Tablet 20 mg PO BID Qty: 120 0RF Continued losartan 50 mg tablet 50 mg PO DAILY sertraline 100 mg tablet 100 mg PO DAILY cyanocobalamin (vitamin B-12) [Vitamin B-12] 500 mcg Tablet 500 mcg PO DAILY pyridoxine (vitamin B6) 500 mg Tablet 500 mg PO DAILY albuterol sulfate 90 mcg/actuation HFA aerosol inhaler 2 puff inhalation Q6H PRN (Reason: Shortness Of Breath Or Wheezing) magnesium oxide 420 mg Tablet 420 mg PO DAILY ascorbic acid (vitamin C) [Vitamin C] 500 mg Tablet 500 mg PO DAILY bumetanide 1 mg tablet 1 mg PO DAILY Qty: 30 0RF benzonatate 200 mg capsule 200 mg PO TID PRN (Reason: cough) Qty: 30 0RF Discontinued buspirone 10 mg tablet 10 mg PO BID Discharge Orders: Discharge Order (Routine); Ordered 04/09/25 Ordered By: Franco Jain Diet: Advance to usual diet Activity on Discharge: As tolerated Stand Alone Forms: Patient Portal Discharge page Print Language: Choose Not To Answer Care Plan Goals: Your BuSpar has been increased to 20 twice a day, trazodone has been added at bedtime as well as hydroxyzine for as needed anxiety Health Concerns: Follow up with PCP next available Plan of Treatment: Continue all other medicines as taken prior to hospital Assessment: See discharge summary
--- NOTE | 2025-04-09 13:50 | MHC.CM.PN ---
Patient has been medically cleared for dc to home today, self care. Last IMM was addressed on 04/07/2025. Brother will transport to home.
[2025-04-10 17:39] LABS: Vitamin D 25-OH, D2 <4 ng/mL; Vitamin D 25-OH, D3 35 ng/mL; Vitamin D 25-OH, Total 35 ng/mL (30-100)
== END 2025-04-09 13:53 | disposition home or self-care (01) | DRG 897 ==
LOC: HO.ED 19:16 → HO.EDOVER 20:03 → HO.IMC 04-07 02:53
PROVIDERS: Nurse Practitioner Family; Physician Assistant; Registered Nurse Emergency; Admitting Provider Student in an Organized Health Care Education/Training Program; Emergency Provider Emergency Medicine Emergency Medical Services; PCP Internal Medicine; Visit Provider Hospitalist
DX: F10.939 Alcohol use, unspecified with withdrawal, unspecified (principal); E87.20 Acidosis, unspecified; I50.32 Chronic diastolic (congestive) heart failure; F10.929 Alcohol use, unspecified with intoxication, unspecified; I11.0 Hypertensive heart disease with heart failure; Y90.8 Blood alcohol level of 240 mg/100 ml or more; H10.9 Unspecified conjunctivitis; F41.8 Other specified anxiety disorders; Z71.41 Alcohol abuse counseling and surveillance of alcoholic; Z79.899 Other long term (current) drug therapy
CPT/HCPCS: 36415; 70450; 80053; 80307; 82140; 82306; 82550; 83690; 83735; 83880; 84439; 84443; 84484; 85025; 85027; 93005; 99285; J1200; J1630; J1650; J2250; J2405; J2560; J3475; J7120; S9485

== ENCOUNTER → 2025-04-06 10:28 | Outpatient (BNV) | payer MEDICARE, SELFPAY | PROVIDERS: Admitting Provider Student in an Organized Health Care Education/Training Program; Emergency Provider Emergency Medicine Emergency Medical Services; PCP Internal Medicine; Visit Provider Internal Medicine | DX: R94.31 Abnormal electrocardiogram [ECG] [EKG] (principal); F10.90 Alcohol use, unspecified, uncomplicated; I49.3 Ventricular premature depolarization; R00.0 Tachycardia, unspecified | CPT/HCPCS: 93010 ==

== ENCOUNTER → 2025-04-06 17:20 | Outpatient (BNV) | payer MEDICARE, SELFPAY | PROVIDERS: Emergency Provider Emergency Medicine Emergency Medical Services; PCP Internal Medicine; Visit Provider Radiology Diagnostic Radiology | DX: R41.82 Altered mental status, unspecified (principal) | CPT/HCPCS: 70450 ==

== ENCOUNTER → 2025-04-06 19:02 | Outpatient (BNV) | payer MEDICARE, SELFPAY | PROVIDERS: Admitting Provider Student in an Organized Health Care Education/Training Program; Emergency Provider Emergency Medicine Emergency Medical Services; PCP Internal Medicine; Visit Provider Physician Assistant | DX: F10.930 Alcohol use, unspecified with withdrawal, uncomplicated (principal); F32.A Depression, unspecified | CPT/HCPCS: 99232 ==

== ENCOUNTER → 2025-04-06 19:02 | Outpatient (BNV) | payer MEDICARE, SELFPAY | PROVIDERS: Admitting Provider Student in an Organized Health Care Education/Training Program; Emergency Provider Emergency Medicine Emergency Medical Services; PCP Internal Medicine; Visit Provider Nurse Practitioner Psychiatric/Mental Health | DX: F10.930 Alcohol use, unspecified with withdrawal, uncomplicated (principal) | CPT/HCPCS: 99221 ==

== ENCOUNTER → 2025-04-28 15:02 | Outpatient (REF) | payer MEDICARE, SELFPAY | LOC: HO.SL 15:02 | PROVIDERS: PCP Internal Medicine; Visit Provider Internal Medicine Cardiovascular Disease | DX: I50.30 Unspecified diastolic (congestive) heart failure (principal); R06.02 Shortness of breath; R06.09 Other forms of dyspnea; G47.10 Hypersomnia, unspecified | CPT/HCPCS: 95806 ==

== ENCOUNTER → 2025-04-28 15:21 | Outpatient (BNV) | payer MEDICARE, SELFPAY | PROVIDERS: PCP Internal Medicine; Visit Provider Internal Medicine | DX: R06.83 Snoring (principal) | CPT/HCPCS: 95806 ==

== ENCOUNTER 2025-05-13 13:20 | Outpatient (AMB) | payer MEDICARE, SELFPAY ==
[2025-05-13 13:33] VITALS: BP 114/60; PULSE 74; BMI 38.1
--- NOTE | 2025-05-13 13:33 | A.OFFVIS_ITS ---
Vital Signs 05/13/25 13:33 Height 5 ft Weight 195 lb 5.273 oz BMI 38.1 BP 114/60 Blood Pressure Location Lt brachial Position Sitting Pulse 74 Pulse Source Pulse Oximeter Intake Visit Reasons: [facility] dc ? 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: No Allergies No Known Allergies Allergy (Verified 05/13/25 13:35) Medication List - Last Reconciled 05/13/25 by Sravani Lara [employer]PLASH [employer] OPERATOR-C albuterol sulfate 90 mcg/actuation 2 puffs inhalation Q6H PRN ascorbic acid (vitamin C) (Vitamin C) 500 mg PO DAILY benzonatate 200 mg PO TID PRN bumetanide 1 mg PO DAILY buspirone 20 mg (2 x 10 mg) PO BID cyanocobalamin (vitamin B-12) (Vitamin B-12) 500 mcg PO DAILY hydroxyzine HCl 50 mg PO Q6H PRN losartan 50 mg PO DAILY magnesium oxide 420 mg PO DAILY pyridoxine (vitamin B6) 500 mg PO DAILY sertraline 100 mg PO DAILY trazodone 100 mg PO BEDTIME HPI HPI [facility] dc ? cardiac cath: Details: Mimi is a 74-year-old female with past medical history of hypertension who was recently admitted to [facility] with increased shortness of breath and treated for pulmonary vascular congestion/ heart failure with preserved EF. She was discharged with Jardiance and Bumex. She did undergo a home sleep study showing no sleep apnea. She now presents for follow-up. Today she reports that she has not been having issues with shortness of breath, or edema. She says she is using the Bumex only as needed and she has not taken any in the last month. No PND, orthopnea or activity intolerance. No chest discomfort at rest or with activity. No heart palpitations, lightheadedness, presyncope, syncope. She does report having some depression and was recently hospitalized. She [address] describes some financial issues. She no longer taking Jardiance as she could not afford it and she did not feel it was helping her. She is taking losartan as directed. [facility] Medical History (HFpEF) heart failure with preserved ejection fraction Depression with anxiety Anemia Congestive heart failure, unspecified Essential hypertension Obesity (BMI 30-39.9) Depression HTN (hypertension) Surgical History History of right knee surgery Family History Father Myocardial infarct Mother No problems noted. Social History Household Members: None Housing: House Do you presently have visiting nurse or other home services: No Alcohol intake: current Alcohol intake frequency: 0-2 drinks per day Alcohol type: wine Comment: refusing alarms Patient Tobacco Use Status: Never used Tobacco e-Cigarette/Vaping Use: Never Used Second Hand Smoke Exposure: No service: No Review of Systems Const All systems reviewed & are unremarkable except as noted in HPI and below ENT Denies dizziness Card Denies chest pain, Denies chest pain at rest, Denies chest pain with activity, Denies rapid heart rate, Denies pedal edema, Denies edema, Denies leg edema, Denies lightheadedness, Denies palpitations, Denies dyspnea, Denies dyspnea on exertion and Denies orthopnea Resp Denies cough, Denies dyspnea and Denies dyspnea on exertion GI Denies hematochezia and Denies change in stool character Musc Denies abnormal gait, Denies limited range of motion, Denies muscle cramps, Denies muscle weakness, Denies numbness, Denies radiating pain into limb, Denies stiffness and Denies tingling Neuro Denies abnormal gait, Denies dizziness, Denies numbness and Denies tingling Endo Denies palpitations Physical Exam Vital Signs: Last Vital Signs Pulse 74 05/13/25 13:33 BP 114/60 05/13/25 13:33 BMI result Body Mass Index 38.1 Const General: cooperative, healthy appearing, comfortable and no acute distress Orientation/consciousness: patient oriented x3 Neck Neck: Yes normal visual inspection Resp Effort & Inspection: normal respiratory effort Auscultation: clear to auscultation bilaterally, no rales, no rhonchi and no wheezes Cardio Rate: regular rate Rhythm: regular rhythm Heart sounds: S1 normal heart sound present, S2 normal heart sound present, no gallops, no murmurs and no rubs Neuro General: patient oriented x3 Extrem General: Yes normal to inspection, No no pedal edema and No calf tenderness Psych Appearance: grossly normal Mental Status: mental status grossly normal Speech and movement: Normal speech and movement present Assessment & Plan Assessment & Plan (1) HTN (hypertension): Code(s): I10 - Essential (primary) hypertension Category: Medical Plan: Blood pressure goal less than 130/80. Well controlled at this time. Continue losartan. (2) (HFpEF) heart failure with preserved ejection fraction: Code(s): I50.30 - Unspecified diastolic (congestive) heart failure Category: Medical Plan We discussed the patient's history of fluid overload and the need for a stress test to evaluate cardiac function. The risks and benefits of the stress test were explained, and the patient consented to proceed. We also reviewed her anxiety and depression management, emphasizing the importance of follow-up with her primary care physician and psychiatric support. The patient expressed concerns about medication costs, and we discussed potential options for financial assistance. Orders: Orders CA stress test Today I10 - Essential (primary) hypertension, I50.30 - Unspecified diastolic (congestive) heart failure NM cardiolite stress test Today I10 - Essential (primary) hypertension, I50.30 - Unspecified diastolic (congestive) heart failure Patient Instructions: - Follow up with your primary care physician for anxiety and depression management. - Attend the scheduled stress test to evaluate your heart function. - Monitor for any symptoms of fluid overload and seek medical attention if they occur. Patient was informed and verbally consented to the use of an ambient scribe for clinic note documentation during this visit. Visit time spent on chart review, interview, assessment, orders, documentation. Coding Level of Care Code Est Pt Level 4 (28149) Complex EM visit Add On G2211 Diagnoses HTN (hypertension) I10 (HFpEF) heart failure with preserved ejection fraction I50.30 Time Spent (min) 30
== END 2025-05-13 14:34 | disposition home or self-care (01) ==
LOC: HO.HCS 13:21
PROVIDERS: PCP Internal Medicine; Visit Provider Nurse Practitioner Family
DX: I10 Essential (primary) hypertension (principal); I50.30 Unspecified diastolic (congestive) heart failure
CPT/HCPCS: 99214; G2211

== ENCOUNTER → 2025-05-13 13:20 | Outpatient (BNVA) | payer MEDICARE, SELFPAY | PROVIDERS: PCP Internal Medicine; Visit Provider Nurse Practitioner Family | DX: I10 Essential (primary) hypertension (principal); I50.30 Unspecified diastolic (congestive) heart failure | CPT/HCPCS: 99212 ==

== ENCOUNTER 2025-05-14 07:39 | Outpatient (REF) | payer MEDICARE, SELFPAY ==
[2025-05-14 11:36] LABS: Alanine Aminotransferase 18 U/L (0-31); Albumin Level 4.1 g/dL (3.5-5.0); Alkaline Phosphatase 68 U/L (39-117); Anion Gap 13 (12-20); Aspartate Amino Transferase 25 U/L (5-31); Blood Urea Nitrogen 9 mg/dL (9-16); Calcium 9.0 mg/dL (8.4-10.2); Carbon Dioxide 26 mmol/L (22-29); Chloride 109 mmol/L (96-108); Estimated Glomerular Filt Rate > 60; Potassium 4.3 mmol/L (3.3-5.1); Sodium 144 mmol/L (135-145); Total Protein 6.8 g/dL (6.5-8.0)
== END 2025-05-14 07:40 | disposition home or self-care (01) ==
LOC: HO.HMGCLDS 07:39
PROVIDERS: PCP Internal Medicine; Visit Provider Internal Medicine
DX: I11.0 Hypertensive heart disease with heart failure (principal); I50.33 Acute on chronic diastolic (congestive) heart failure; F33.42 Major depressive disorder, recurrent, in full remission; F41.8 Other specified anxiety disorders; R42 Dizziness and giddiness
CPT/HCPCS: 36415; 80053

== ENCOUNTER 2025-06-12 08:28 | Outpatient (REF) | payer MEDICARE, SELFPAY ==
--- NOTE | ~2025-06-12 | XR_ITS ---
EXAMINATION: XR KNEE 3 VIEWS BILATERAL HISTORY: Bilateral knee pain COMPARISON: Comparison is made with the prior examination of the right knee dated 03/28/2016. FINDINGS: Six views of the bilateral knees are submitted. Osseous mineralization is normal. There is no fracture or dislocation. There is severe osteoarthritis of the medial compartments of both knees, with joint space narrowing and osteophyte formation. There is mild degenerative change of the patellofemoral joints of both knees. The soft tissues are unremarkable. There is no joint effusion. XR/XR Knee Luis 3V IMPRESSION: Osteoarthritis of the bilateral knees as described. Electronically signed by: Channing Farrar MD 06/12/2025 02:42 PM EDT
== END 2025-06-12 08:29 | disposition home or self-care (01) ==
LOC: HO.HOSX 08:28
PROVIDERS: Visit Provider Orthopaedic Surgery
DX: M17.0 Bilateral primary osteoarthritis of knee (principal); I10 Essential (primary) hypertension; Z79.899 Other long term (current) drug therapy
CPT/HCPCS: 73562; 99202

== ENCOUNTER 2025-06-12 13:48 | Outpatient (AMB) | payer MEDICARE, MEDICAID, SELFPAY ==
[2025-06-12 14:03] VITALS: BMI 38.1
--- NOTE | 2025-06-12 14:03 | A.OFFVIS_ITS ---
Vital Signs 06/12/25 14:03 Height 5 ft Weight 195 lb BMI 38.1 Intake Visit Reasons: Right knee pain Intake Note: Mimi is a 75-year-old female who presents with complaints of progressively worsening bilateral knee pains, right greater than left. The patient describes her right knee pain as sharp and severe in nature, 06/13. Her right knee pain has gotten worse over the last few years in spite of continued non operative treatments. She has had multiple injections. The most recent injection was given in May of 2025. That injection gave her no relief. She has tried physical therapy exercises which aggravated her pain. She has also tried Tylenol and anti-inflammatory medicines which gave her minimal relief. The patient has difficulty walking even short distances because of her pain. At this point her right knee pain is interfering with her activities of daily living and her ability to sleep well through the night. Allergies No Known Allergies Allergy (Verified 06/12/25 14:08) Medication List - Last Reconciled 06/12/25 by Feliciano Garibay MD albuterol sulfate 90 mcg/actuation 2 puffs inhalation Q6H PRN ascorbic acid (vitamin C) (Vitamin C) 500 mg PO DAILY benzonatate 200 mg PO TID PRN bumetanide 1 mg PO DAILY buspirone 20 mg (2 x 10 mg) PO BID cyanocobalamin (vitamin B-12) (Vitamin B-12) 500 mcg PO DAILY hydroxyzine HCl 50 mg PO Q6H PRN losartan 50 mg PO DAILY magnesium oxide 420 mg PO DAILY pyridoxine (vitamin B6) 500 mg PO DAILY sertraline 100 mg PO DAILY trazodone 100 mg PO BEDTIME [facility] Medical History (HFpEF) heart failure with preserved ejection fraction Depression with anxiety Anemia Congestive heart failure, unspecified Essential hypertension Obesity (BMI 30-39.9) Depression HTN (hypertension) Surgical History History of right knee surgery Family History Father Myocardial infarct Mother No problems noted. 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 Physical Exam Vital Signs: BMI result Body Mass Index 38.1 Const Other: Well-nourished well-developed very friendly female awake alert and oriented x3 in no acute distress Extrem Other: Right knee examination shows a minimal effusion, palpable crepitus with range of motion, pain with range of motion, range of motion from -3 degrees to 115 degrees, no instability Results Reviewed Results Reviewed: X-rays of the patient's bilateral knee show end-stage degenerative joint disease with grade 4 [id number] arthritis in the medial compartments, subchondral sclerosis, osteophyte formation, no acute bony abnormalities Assessment & Plan Assessment & Plan (1) Right knee pain: Code(s): M25.561 - Pain in right knee (2) Osteoarthritis of right knee: Code(s): M17.11 - Unilateral primary osteoarthritis, right knee Category: Medical Plan Mimi is a 75-year-old female who presents with complaints of progressively worsening bilateral knee pains, right greater than left, due to end-stage degenerative joint disease. I had a lengthy discussion with the patient regarding the treatment options. At this point she has failed continued non operative treatments. The risks and benefits of right total knee replacement surgery were discussed at length with the patient. The patient wishes to proceed with surgery early next year. She will contact my office to pick a surgery date. I will see her back prior to the procedure to answer any final questions that she might have. Feel free to call me at any time should questions regarding her orthopedic management arise. I spent 22 minutes in reviewing the patient's records and imaging studies, seeing the patient and documenting in the medical record. Orders: Orders XR Knee Luis 3V 06/12/25 M25.561 - Pain in right knee, M25.562 - Pain in left knee Coding Level of Care Code New Pt Level 3 (50020) Complex EM visit Add On G2211 Diagnoses Right knee pain M25.561 Osteoarthritis of right knee M17.11
== END 2025-06-12 14:21 | disposition home or self-care (01) ==
PROVIDERS: PCP Internal Medicine; Visit Provider Orthopaedic Surgery
DX: M25.561 Pain in right knee (principal); M17.11 Unilateral primary osteoarthritis, right knee
CPT/HCPCS: 99203; G2211

== ENCOUNTER → 2025-06-12 13:52 | Outpatient (BNV) | payer MEDICARE, SELFPAY | PROVIDERS: Visit Provider Radiology Diagnostic Radiology | DX: M17.0 Bilateral primary osteoarthritis of knee (principal) | CPT/HCPCS: 73562 ==

== ENCOUNTER 2025-06-27 | Outpatient (REF) | payer MEDICARE, SELFPAY | END 2025-06-27 00:01 | LOC: CF | PROVIDERS: PCP Internal Medicine; Visit Provider Family Medicine | DX: I11.0 Hypertensive heart disease with heart failure (principal); I50.30 Unspecified diastolic (congestive) heart failure; J01.90 Acute sinusitis, unspecified; Z79.2 Long term (current) use of antibiotics | CPT/HCPCS: 99212 ==

== ENCOUNTER 2025-06-27 10:41 | Outpatient (AMB) | payer MEDICARE, SELFPAY ==
[2025-06-27 10:56] VITALS: BP 130/78; PULSE 82; TEMP 36.6; O2SAT 97; BMI 36.5
--- NOTE | 2025-06-27 10:56 | MHC.OFFWIV ---
Intake Vital Signs 06/27/25 10:56 Height 5 ft Weight 187 lb BMI 36.5 BP 130/78 Blood Pressure Location Lt brachial Position Sitting Pulse 82 Pulse Source Pulse Oximeter Temp 98 F Temp Source Oral Pulse Oximetry (%) 97 Oxygen Delivery Method Room Air Intake Visit Reasons: EP Severe headache, sinus, body weakness, cough Intake Note: EP complains of severe headache, nasal block, chills and cough with yellow sputum since MondayJun 23. Patient Tobacco Use Status: Never used Tobacco Allergies No Known Allergies Allergy (Verified 06/27/25 11:06) Medication List - Last Reconciled 06/27/25 by Katerina Umaña MD albuterol sulfate 90 mcg/actuation 2 puffs inhalation Q6H PRN ascorbic acid (vitamin C) (Vitamin C) 500 mg PO DAILY benzonatate 200 mg PO TID PRN bumetanide 1 mg PO DAILY buspirone 20 mg (2 x 10 mg) PO BID cyanocobalamin (vitamin B-12) (Vitamin B-12) 500 mcg PO DAILY hydroxyzine HCl 50 mg PO Q6H PRN losartan 50 mg PO DAILY magnesium oxide 420 mg PO DAILY pyridoxine (vitamin B6) 500 mg PO DAILY sertraline 100 mg PO DAILY trazodone 100 mg PO BEDTIME Do you need a note to return to daycare/school/sports/work: No HPI HPI Comments History of Present Illness Details Patient was informed and verbally consented to the use of an ambient scribe for clinic note documentation during the visit. History of Present Illness The patient is a 75-year-old female presenting with symptoms of a upper respiratory infection. - Symptoms began approximately four days ago. - Presents with chills, nasal congestion, and headache. - The patient reports using aspirin, Sudafed, and nasal spray with minimal relief. - Experience of weakness and sensations of cold and shivering were reported. - No fever has been checked at home. - The patient denies nausea, vomiting, diarrhea, or shortness of breath. Review of Systems - General: Reports chills, weakness, sweating; denies fever checked at home. - HEENT: Reports nasal congestion, sinus pain, pressure, and headaches; denies current ear pain. - Respiratory: Denies shortness of breath or significant coughing - Gastrointestinal: Denies current nausea, vomiting, or diarrhea. Physical Exam General Appearance: Normal appearance, well developed. No acute distress ENT: External ears and ear canals normal. 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 Nasal discharge or congestion present. Postnasal drip noted. Oropharynx clear without erythema or exudate. Head: Normocephalic, atraumatic Pulmonary: No respiratory distress. Clear to auscultation bilaterally. Speaking in full sentences Cardiac: Regular rate and rhythm. No murmurs. Musculoskeletal: Moving all extremities spontaneously and against gravity Mental Status: Alert and Oriented x 3 Psychiatric: Normal mood. Normal affect. [facility] Medical History (HFpEF) heart failure with preserved ejection fraction Depression with anxiety Anemia Congestive heart failure, unspecified Essential hypertension Obesity (BMI 30-39.9) Depression HTN (hypertension) Surgical History History of right knee surgery Family History Father Myocardial infarct Mother No problems noted. 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 Offered viral testing. - Recommended continuation of symptomatic management with Sudafed, Mucinex, and saline nasal sprays. - Discussed patient's concern for sinus infection and antibiotics; advised to continue supportive care at this time and prescribed Augmentin to take for possible bacterial superinfection if symptoms persist beyond 10 days. - Emphasizing taking it with food. - Instructed to report back if symptoms worsen, specifically if fever, shortness of breath, or chest pain develops. Medications: New amoxicillin-pot clavulanate 875-125 mg 1 tab PO Q12H 10 tabs 0RF Coding Level of Care Code Est Pt Level 3 (96015) Diagnoses Acute rhinosinusitis J01.90
== END 2025-06-27 11:39 | disposition home or self-care (01) ==
PROVIDERS: Visit Provider Family Medicine
DX: J01.90 Acute sinusitis, unspecified (principal)
CPT/HCPCS: 99213

== ENCOUNTER → 2025-07-29 09:50 | Outpatient (REF) | payer MEDICARE, SELFPAY ==
--- NOTE | ~2025-07-29 | NM_ITS ---
EXERCISE MYOCARDIAL PERFUSION STUDY INDICATION: Congestive heart failure TECHNIQUE: The patient was brought in for an exercise perfusion study on 07/29/2025. Patient performed exercise as per Carl protocol and was injected 30 mCi of sestamibi once target heart rate was achieved. Images were obtained using the SPECT gamma camera interlaced with the gating device. Images were obtained in supine position. Resting perfusion study was performed on 08/05/2025. Patient was administered 30 mCi of sestamibi intravenously at rest. Images were then obtained in supine position. Total DLP 84 mGy-cm. Images were processed with the software and compared side to side in short axis, horizontal long axis and vertical long axis views. FINDINGS: Raw aquisition reviewed. The stress perfusion study showed no significant perfusion modality. Both uncorrected as well as CT attenuation corrected images were reviewed. Gating not performed during PVCs. Resting study shows no significant perfusion abnormality. Gating at rest reveals normal wall motion with ejection fraction at 55%. The findings are consistent with no clear reversible or fixed perfusion abnormality. NM/NM cardiolite stress test IMPRESSION: 1. Myocardial perfusion imaging study shows probably normal myocardial perfusion. 2. Gated LVEF is 55% during rest. EKG component of the test reported separately. Electronically signed by: Thaddeus Willams MD 08/05/2025 04:06 PM TOAN TEJADA
--- NOTE | 2025-07-29 09:52 | CA_ITS ---
Acquisition Time: 2025-07-29 09:59:37 Total Exercise Time: 00:06:30 Test Indications: unspec. dyastolic bp Medications: Protocol: OSMAR Max HR: 136 BPM 92% of Pred: 147 BPM Max BP: 142/70 mmHG Max Work Load: 7.3 METS Exercise stress test with exercise 6 mins 30 secs of Osmar Protocol, achieving 93% MPHR, with reports of SOB, no chest pain, with frequent PVCs, bigeminy pattern in recovery, with normotensive response to exercise. Without any EKG changes meeting criteria for ischemia. In recovery, breathing improved and pt feeling back to baseline. Nuclear images pending. Test reviewed with Dr. Maria. Referred By: Sravani Lara Electronically Signed By: Zurdo Hammonds
== END ==
LOC: HO.CARD 09:50
PROVIDERS: PCP Internal Medicine; Visit Provider Nurse Practitioner Family
DX: I11.0 Hypertensive heart disease with heart failure (principal); I50.30 Unspecified diastolic (congestive) heart failure
CPT/HCPCS: 78452; 93017; A9500

== ENCOUNTER → 2025-07-29 09:52 | Outpatient (BNV) | payer MEDICARE, SELFPAY | PROVIDERS: PCP Internal Medicine | DX: I49.3 Ventricular premature depolarization (principal); R06.02 Shortness of breath | CPT/HCPCS: 78452; 93016; 93018 ==

== ENCOUNTER 2025-08-18 09:59 | Outpatient (AMB) | payer MEDICARE, MEDICAID, SELFPAY ==
[2025-08-18 10:15] VITALS: BP 120/82; PULSE 82; BMI 34.8
--- NOTE | 2025-08-18 10:15 | MHC.OFFVIS ---
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 Household Appliances Required: No Allergies No Known Allergies Allergy (Verified 08/18/25 10:17) Medication List - Last Reconciled 08/18/25 by Sravani Lara [employer] albuterol sulfate 90 mcg/actuation 2 puffs inhalation Q6H PRN ascorbic acid (vitamin C) (Vitamin C) 500 mg PO DAILY buspirone 20 mg (2 x 10 mg) PO BID cyanocobalamin (vitamin B-12) (Vitamin B-12) 500 mcg PO DAILY hydroxyzine HCl 50 mg PO Q6H PRN losartan 50 mg PO DAILY magnesium oxide 420 mg PO DAILY pyridoxine (vitamin B6) 500 mg PO DAILY sertraline 100 mg PO DAILY HPI HPI 3 mth fu after nuclear [address]: Details: Mimi is a 74-year-old female with past medical history of hypertension who was admitted to [facility], 02/2025, with increased shortness of breath and treated for pulmonary vascular congestion/ heart failure with preserved EF. She was discharged with Jardiance and Bumex. She did undergo a home sleep study showing no sleep apnea and a nuclear stress test which was normal. She now presents for follow-up. Today she reports that she has been feeling very well with no concerning symptoms. She denies having shortness of breath, or edema. She says she is using the Bumex as needed. No PND, orthopnea or activity intolerance. No chest discomfort at rest or with activity. No heart palpitations, lightheadedness, presyncope, syncope. She is not taking Jardiance as she could not afford it and she did not feel it was helping her. She is taking losartan as directed. [facility] Medical History (HFpEF) heart failure with preserved ejection fraction Depression with anxiety Anemia Congestive heart failure, unspecified Essential hypertension Obesity (BMI 30-39.9) Depression HTN (hypertension) Surgical History History of right knee surgery Family History Father Myocardial infarct Mother No problems noted. 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 Review of Systems Const All systems reviewed & are unremarkable except as noted in HPI and below ENT Denies dizziness Card Denies chest pain, Denies chest pain at rest, Denies chest pain with activity, Denies rapid heart rate, Denies pedal edema, Denies edema, Denies leg edema, Denies lightheadedness, Denies palpitations, Denies dyspnea, Denies dyspnea on exertion and Denies orthopnea Resp Denies cough, Denies dyspnea and Denies dyspnea on exertion GI Denies hematochezia and Denies change in stool character Musc Denies abnormal gait, Denies limited range of motion, Denies muscle cramps, Denies muscle weakness, Denies numbness, Denies radiating pain into limb, Denies stiffness and Denies tingling Neuro Denies abnormal gait, Denies dizziness, Denies numbness and Denies tingling Endo Denies palpitations Physical Exam Vital Signs: Last Vital Signs Pulse 82 08/18/25 10:15 BP 120/82 08/18/25 10:15 BMI result Body Mass Index 34.8 Const General: cooperative, healthy appearing, comfortable and no acute distress Orientation/consciousness: patient oriented x3 Neck Neck: Yes normal visual inspection and Yes no JVD Resp Effort & Inspection: normal respiratory effort Auscultation: clear to auscultation bilaterally, no rales, no rhonchi and no wheezes Cardio Rate: regular rate Rhythm: regular rhythm Heart sounds: S1 normal heart sound present, S2 normal heart sound present, no gallops, no murmurs and no rubs Neuro General: patient oriented x3 Extrem General: Yes normal to inspection, No no pedal edema and No calf tenderness Psych Appearance: grossly normal Mental Status: mental status grossly normal Speech and movement: Normal speech and movement present Assessment & Plan Assessment & Plan (1) (HFpEF) heart failure with preserved ejection fraction: Code(s): I50.30 - Unspecified diastolic (congestive) heart failure Category: Medical Plan: Finding of heart failure with preserved EF during hospital admission 02/2025. Echocardiogram at that time showed EF 60-65%, normal valves, normal diastolic function. She was put on Bumex and Jardiance. The Bumex she only takes PRN. The Jardiance she did not take due to the high cost. She is not fluid overloaded on exam. Recent nuclear stress test, 07/29/2025 showing normal myocardial perfusion imaging. Results reviewed with her. Signs and symptoms of heart failure discussed. Cardiology follow-up 1 year, sooner if needed. (2) HTN (hypertension): Code(s): I10 - Essential (primary) hypertension Category: Medical Plan: Blood pressure goal less than 130/80. Well controlled at this time. Continue losartan. Plan I reviewed the patient's normal nuclear stress test result with her, explaining it indicates good blood flow to her heart. We discussed that she is feeling well, with good blood pressure and heart rate, and she denies any leg swelling. I acknowledged her significant weight loss of 30 pounds, which has been beneficial for her arthritis. Due to her clinical stability, I recommended a follow-up appointment in one year. I advised her to contact us for any new issues such as increased shortness of breath, leg swelling, or chest pains. Patient Instructions: - Continue to stay physically active and maintain your weight loss efforts. - Please schedule a follow-up appointment in one year. - Contact our office if you experience any new chest pain, increased shortness of breath, or swelling in your legs. Patient was informed and verbally consented to the use of an ambient scribe for clinic note documentation during this visit. Visit time spent on chart review, interview, assessment, orders, documentation. Coding Level of Care Code Est Pt Level 3 (40550) Diagnoses (HFpEF) heart failure with preserved ejection fraction I50.30 HTN (hypertension) I10 Time Spent (min) 22
== END 2025-08-18 10:53 | disposition home or self-care (01) ==
PROVIDERS: PCP Internal Medicine; Visit Provider Nurse Practitioner Family
DX: I50.30 Unspecified diastolic (congestive) heart failure (principal); I10 Essential (primary) hypertension
CPT/HCPCS: 99213

== ENCOUNTER → 2025-08-18 09:59 | Outpatient (BNVA) | payer MEDICARE, SELFPAY | PROVIDERS: PCP Internal Medicine; Visit Provider Nurse Practitioner Family | DX: I11.0 Hypertensive heart disease with heart failure (principal); I50.30 Unspecified diastolic (congestive) heart failure; Z79.899 Other long term (current) drug therapy | CPT/HCPCS: 99212 ==